=== PATIENT | female | born 1970 | race Caucasian/White ===

== ENCOUNTER → 2020-08-18 11:31 | Outpatient (CLI) | payer OTHER, SELFPAY ==
--- NOTE | ~2020-08-18 | US_ITS ---
EXAMINATION: US thyroid DATE: 08/18/2020 12:01 INDICATION: Nontoxic single thyroid nodule TECHNIQUE: Multiple ultrasound images of the thyroid were obtained. COMPARISON: 07/23/2019 FINDINGS: The right thyroid lobe measures 5.5 x 2.2 x 1.9 cm. The left thyroid lobe measures 5.1 x 2.0 x 1.9 c m. There is heterogeneous echogenicity with coarsened echotexture and pseudonodular pattern througho ut both thyroid lobes. A couple more well-defined 4 mm hypoechoic nodules in the inferior left thyroi d without echogenic foci which are significantly decreased in size since prior study IMPRESSION: 1. 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 2. Decrease in size of a couple now <5 mm nodules in the inferior left thyroid which are below criter ia for either biopsy or follow-up. Reviewed, dictated and finalized at location A. ET MACHINE OPERATOR IMPRESSION: 1. Enlarged heterogeneous thyroid with appearance suggestive of Deidra's thy roiditis. 2. Decrease in size of a couple now <5 mm nodules in the inferior left thyroid which are below criteria for either biopsy or follow-up.
== END ==
PROVIDERS: Visit Provider Nurse Practitioner Family
DX: E04.1 Nontoxic single thyroid nodule (principal)
CPT/HCPCS: 76536

== ENCOUNTER → 2020-08-18 11:32 | Outpatient (CLI) | payer OTHER, SELFPAY ==
--- NOTE | ~2020-08-18 | MM_ITS ---
EXAMINATION: MM screening [facility]rid BI w sheeba HISTORY: Screening mammogram TECHNIQUE: Craniocaudal and mediolateral oblique 3-D tomosynthesis images were obtained and synthetic 2-D images were generated. CAD analysis was submitted and interpreted. COMPARISON: 07/24/2018, 07/17/2017 bilateral digital screening mammogram examinations BREAST PARENCHYMAL COMPOSITION: The breasts are almost entirely fatty. FINDINGS: There is no evidence of suspicious mass, calcification, or architectural distortion to sugg est malignancy in either breast. There has been no suspicious interval change. IMPRESSION: 1. No mammographic evidence of malignancy. 2. Recommend routine screening mammography in one year. BI-RADS Category 1: Negative Reviewed, dictated and finalized at location A. 3RD MATE
== END ==
PROVIDERS: Visit Provider Nurse Practitioner
DX: Z12.31 Encounter for screening mammogram for malignant neoplasm of breast (principal)
CPT/HCPCS: 77063; 77067

== ENCOUNTER → 2020-12-07 07:54 | Outpatient (CLI) | payer OTHER, SELFPAY ==
--- NOTE | ~2020-12-07 | US_ITS ---
EXAMINATION: US right upper quadrant DATE: 12/07/2020 08:13 INDICATION: Right upper quadrant abdominal pain. TECHNIQUE: Multiple grayscale and Doppler ultrasound images of the abdomen were obtained. COMPARISON: None FINDINGS: Abdominal aorta is normal in caliber. The visualized portions of the head and body of the p ancreas are normal. There is diffuse hepatic steatosis. There is normal flow in main portal vein. The gallbladder is normal in size. No gallstones or gallbladder wall thickening. There is no sonographic Jones sign. The common duct is normal and measures 3 mm. Right kidney is normal in size. No right-s ided hydronephrosis. IMPRESSION: 1. Diffuse hepatic steatosis. Reviewed, dictated and finalized at location A.
== END ==
PROVIDERS: PCP Physician Assistant; Visit Provider Physician Assistant
DX: R10.11 Right upper quadrant pain (principal); K76.0 Fatty (change of) liver, not elsewhere classified
CPT/HCPCS: 76705

== ENCOUNTER → 2022-09-27 15:11 | Outpatient (CLI) | payer OTHER, SELFPAY ==
--- NOTE | ~2022-09-27 | MM_ITS ---
EXAMINATION: MM screening [facility] BI w sheeba HISTORY: Screening TECHNIQUE: Craniocaudal and mediolateral oblique 3-D tomosynthesis images were obtained and synthetic 2-D images were generated. CAD analysis was submitted and interpreted. COMPARISON: Comparison to multiple prior studies sequentially, with oldest reviewed study dated 06/06. BREAST PARENCHYMAL COMPOSITION: There are scattered areas of fibroglandular density. FINDINGS: There is no evidence of suspicious mass, calcification, or architectural distortion to sugg est malignancy in either breast. There has been no suspicious interval change. IMPRESSION: 1. No mammographic evidence of malignancy. 2. Recommend routine screening mammography in one year. BI-RADS Category 1: Negative Reviewed, dictated and finalized at location A.
== END ==
PROVIDERS: PCP Physician Assistant; Visit Provider Nurse Practitioner
DX: Z12.31 Encounter for screening mammogram for malignant neoplasm of breast (principal)
CPT/HCPCS: 77063; 77067

== ENCOUNTER → 2023-03-18 16:23 | Outpatient (CLI) | payer OTHER, SELFPAY ==
--- NOTE | ~2023-03-18 | US_ITS ---
Thyroid ultrasound. Clinical History: Goiter Findings: Real-time sonography of the thyroid gland was performed. The right lobe measures 4.8 x 1.9 x 1.8 cm. The left lobe measures 5.1 x 2.0 x 1.6 cm. The isthmus is 4 mm in AP diameter. Thyroid parenchyma is diffusely heterogeneous. Questionable 4 mm hypoechoic left lower pole thyroid n odule. There is a 5 mm hypoechoic right midpole thyroid nodule near the junction with the isthmus. Th ere is a 5 mm hypoechoic nodule in the isthmus just left of midline. Impression: Heterogeneous thyroid parenchyma with subcentimeter nodules, as detailed above. No further follow-up required for these nodules. Reviewed, dictated and finalized at location . Impression: Heterogeneous thyroid parenchyma with subcentimeter nodules, as detailed above. No further follow-up required for these nodules.
== END ==
PROVIDERS: PCP Physician Assistant; Visit Provider Internal Medicine Endocrinology, Diabetes & Metabolism
DX: E04.9 Nontoxic goiter, unspecified (principal)
CPT/HCPCS: 76536

== ENCOUNTER 2023-12-29 10:53 | Outpatient (CLI) | payer OTHER, SELFPAY ==
--- NOTE | ~2023-12-29 | MM_ITS ---
EXAMINATION: MM screening sigrid BI w sheeba HISTORY: Screening mammogram TECHNIQUE: Craniocaudal and mediolateral oblique 3-D tomosynthesis images were obtained and synthetic 2-D images were generated. CAD analysis was submitted and interpreted. COMPARISON: 09/27/2022, 06/17/2021 BREAST PARENCHYMAL COMPOSITION:Not Dense. The breasts are almost entirely fatty FINDINGS: No suspicious mass, calcification, or architectural distortion are identified in either mya ast to suggest malignancy. There has been no suspicious interval change. IMPRESSION: No mammographic evidence of malignancy. Recommend routine screening mammography in one year. BI-RADS Category 1: Negative Reviewed, dictated and finalized at location .
== END 2023-12-29 10:54 ==
LOC: MICIMG 10:53
PROVIDERS: PCP Nurse Practitioner; Visit Provider Nurse Practitioner
DX: Z12.31 Encounter for screening mammogram for malignant neoplasm of breast (principal)
CPT/HCPCS: 77063; 77067

== ENCOUNTER 2024-11-01 07:40 | Outpatient (CLI) | payer OTHER, SELFPAY ==
--- NOTE | ~2024-11-01 | XR_ITS ---
XR knee RT 3V Ordering provider: Kelsie Krause, PARafael History: . Pain in R knee . Comparison: None. FINDINGS: BONES: No acute fracture or dislocation. JOINT SPACES: Normal. SOFT TISSUES: Normal. IMPRESSION: No acute osseous abnormality right knee. - Reviewed, dictated and finalized at location A.
== END 2024-11-01 07:41 | disposition home or self-care (01) ==
PROVIDERS: PCP Physician Assistant; Visit Provider Physician Assistant
DX: M25.561 Pain in right knee (principal)
CPT/HCPCS: 73562

== ENCOUNTER 2024-11-22 08:25 | Outpatient (CLI) | payer OTHER, SELFPAY ==
--- NOTE | ~2024-11-22 | CT_ITS ---
EXAMINATION: CT wrist RT wo con DATE: 11/22/2024 08:44 INDICATION: Right wrist pain post fall 3 days prior TECHNIQUE: High resolution computed tomography (CT) of the right wrist was performed without intraven ous contrast. Additional sagittal and coronal reconstructions were performed. Matter dose Patel Th e dose-length product was 85.38 mGy-cm. COMPARISON: None FINDINGS: Bone alignment is normal. No fracture. Joint spaces appear normal throughout. Soft tissues are unrema rkable. IMPRESSION: 1. Unremarkable CT of the right wrist with no acute osseous abnormality. Reviewed, dictated and finalized at location A.
== END 2024-11-22 08:26 | disposition home or self-care (01) ==
LOC: MICIMG 08:26
PROVIDERS: PCP Physician Assistant
DX: M25.531 Pain in right wrist (principal)
CPT/HCPCS: 73200

== ENCOUNTER 2025-03-29 09:29 | Outpatient (CLI) | payer OTHER, SELFPAY ==
--- OUTSIDE RECORDS SUMMARY | 2024-05-22 16:00 | XMS_ITS ---
Author Organization [facility] Address [address] [address] Care Team Providers Care Barbecue Cook Name Role Phone Cindy Hughes Primary Care Provider Migration, Provider Unavailable Unavailable Allergies Allergen (clinical drug ingredient) Drug/Non Drug Allergy documented on EMR Reaction Allergy Type Onset Date Status penicillin G Penicillin G Potassium Unknown Drug Allergy Active erythromycin Erythromycin Unknown Drug Allergy A ctive REASON FOR VISIT [facility] To [facility] Conversion Encounter Medications Medication SIG (Take, Route, Frequency, Duration) Notes Start Date End Date Status methIMAzole 5 MG 1 tab(s) orally yoni y for 90 days 12/11/2023 Active metFORMIN HCl ER 500 MG 1 tab(s) orally once a day with dinner for 90 days 03/22/2024 Active Zepbound 2.5 MG/0.5ML inject 2.5 mg subcutaneously once a week for 30 days 03/22/2024 Active Zepbound 5 MG/0.5ML inject 5 mg subcutan eously once a week for 90 days 03/22/2024 Active dexAMETHasone 1 MG 1 tab(s) orally at 1 0 pm night before 8 am cortisol for 1 days 03/22/2024 Active Losartan Potassium 25 MG 1 tab(s) orally once a day for 90 days 12/11/2023 Active Losartan Potassium 50 MG 1 tab(s) orally once a day for 90 days 03/22/2024 Active Encounters Encounter Location Date [facility] [address] [address] 05/22/2024 Provider Migration Essential (primary) hypertension I10 [...] 1 tab(s) orally once a day with dinner for 90 days 03/22/2024 Zepbound 2.5 MG/0.5ML inject 2.5 mg subc utaneously once a week for 30 days 03/22/2024 Zepbound 5 MG/0.5ML inject 5 mg subcutan eously once a week for 90 days 03/22/2024 dexAMETHasone 1 MG 1 tab(s) orally at 1 0 pm night before 8 am cortisol for 1 days 03/22/2024 Losartan Potassium 50 MG 1 tab(s) orally once a day for 90 days 03/22/2024 Progress Notes * Arlene OWENSB: 969 (54 yo F)Acc No.[id number]:05/22/2024 Patient: Damari DAVEY Provider: Brooke Bhatti :1970 A ge:53 Y S ex:Female Date:05/22/2024 Phone: Address:[address] [place], [place] [phone] Pcp:Cindy Hughes Subjective: * Chief Complaints: * [facility] . [facility] * Medical History: * Medications: [...] Electronic signature of Prov ider Migration on 03/29/2025 at 10:13 AM CDT Sign off status: Pending * Provider: Brooke brown Migration Date: 07/22/2023 Generated for Moiz greer/Anselmo/Korin on: 0 03/29/2025 10:13 AM CDT
--- OUTSIDE RECORDS SUMMARY | 2024-05-22 16:00 | XMS_ITS ---
Author Organization [facility] Address [address] [place] [id number] Care Team Providers Care Draw Operator Name Role Phone Cindy Hughes Primary Care Provider Migration, Provider Unavailable Unavailable Allergies Allergen (clinical drug ingredient) Drug/Non Drug Allergy documented on EMR Reaction Allergy Type Onset Date Status erythromycin Erythromycin Unknown Drug Allergy A ctive penicillin G Penicillin G Potassium Unknown Drug Allergy [facility] Encounter Medications Medication SIG (Take, [...] Active Encounters Encounter Location Date Provider Diagnosis [address] [phone] 05/22/2024 Provider Migration Essential (primary) hypertension I10 [...] Duration: 90 days 03/22/2024 Progress Notes * rAlene OWENSB: 969 (54 yo F)Acc No.[id number]:05/22/2024 Patient: Elijah duque Damari Provider: Brooke Bhatti :1970 A ge:53 Y S ex:Female Date:05/22/2024 Phone: Address:[address] [place], [place] [phone] Pcp:Cindy Hughes Subjective: * Chief Complaints: * [facility] Conversion Encounter * Medications: T akingmethIMAzole 5 [...]
--- NOTE | ~2025-03-29 | US_ITS ---
ULTRASOUND ABDOMEN LIMITED (RIGHT UPPER QUADRANT) Clinical History: RUQ pain Comparison: None Technique: Right upper quadrant sonography Findings: Liver: Normal size. Normal echotexture. No intrahepatic biliary ductal dilatation. Normal hepatopedal flow main portal vein. Common Duct: Normal caliber. 2 mm. Gallbladder: No stones. No wall thickening. No pericholecystic fluid. Pancreas: Unremarkable. But largely obscured by bowel gas Retrohepatic IVC: Unremarkable. IMPRESSION: 1. No acute findings. Reviewed, dictated and finalized at location R. IMPRESSION: 1. No acute findings.
--- OUTSIDE RECORDS SUMMARY | 2025-03-29 10:13 | XMS_ITS | Clinical Summary ---
Author Organization [facility] Impliant Address [address] [place] [address] Care Team Providers Care Team Psychologist Name Role Phone Cindy Hughes MD Unavailable [phone] Elsie Wright OD Unavailable [phone] Source Comments [facility],non-owned Affiliates and Associated Physician Practices is amultiple site organization consisting of ambulatory clinics and hospital sitesin [place], [place], [place] and [place]. This disclosure is being madepursuant to the Care Everywhere program and may not contain all information available regarding this patient. Last updated 18.[facility] Allergies Active Allergy Reactions Criticality Noted Date Comments Clemizole Swelling 12/09/2012 Patient does not recall this allergy reaction but search may be related to penicillin? Erythromycin Urticaria Medium 06/26/2017 Penicillins Other,Rash,Swelling Medium 07/23/2004 Medications * Be aware that medications may not be up to date on this document. Alwaysverify current medications with the patient. omeprazole (PRILOSEC) 20 MG capsule omeprazole 20 mg capsule,delayed release Take 1 capsule every day by oral route as needed. 1 Active albuterol HFA (PROVENTIL;ALYSA TOLIN;PROAIR) 108 (90 Base) MCG/ACT inhaler INL 2 PFS PO Q 4 TO 6 H PRN 0 Active Cholecalcifero l (VITAMIN D3) 1.25 MG (68573 UT) capsule vitamin D3 2,000 unit-folic acid 1 mg tablet Take by oral route. 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 (AF LURIA, FLUZONE TRIVALENT; 6MO+) (IIV3) 04/06/2013,03/03/2009 TDAP (7yrs+) 01/25/2011 Social History Tobacco Use Types Packs/Day Years Used Date Smoking Tobacco: Never Smokeless Tobacco: Never Comments No Sex and Gender Information Value Date Recorded Sex Assigned at Not on file Legal Sex Female 11:42 AM [employer] LO[employer] Gender Identity Not on file Sexual Orientation Not on file Last Filed Vital Signs Vital Sign Reading Time Taken Comments Blood Pressure 140/70 10/16/2018 12:33 PM CDT Pulse 70 10/16/2018 12:33 PM CDT Temperature 36.7 C (98.1 F) 10/16/2018 12:33 PM CDT Respiratory Rate 16 10/16/2018 12:33 PM CDT Oxygen Saturation 98% 10/16/2018 12:33 PM CDT Inhaled Oxygen Concentration - - Weight 68 kg (150 lb) 10/16/2018 12:33 PM CDT Height 154.9 cm (5' 1) 10/16/2018 12:33 PM CDT Body Mass Index 28.34 10/16/2018 12:33 PM CDT Plan of Treatment Upcoming Encounters Date Type Department Care Team (Late st Contact Info) Description 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 Office Visit [facility] - Ophthalmology [address] [place] [phone] Nadine Newton MD [address] [place] [address] Health Maintenance Due Date Last Done Comments COLOGUARD (AGES 45-75) - COL ON CA SCREENING 1968 COLON MONITORING 1968 COLONOSCOPY - COLON CA SCREENING [address] CT COLONOGRAPHY - COLON CA SCREENING 1968 Colorectal Cancer Screening 1968 FIT - COLON CA SCREENING 1968 FLEX SIG - COLON CA SCREENING 1968 LIPID TESTING 1968 MAMMOGRAM 1968 HIV SCREENING 11/09/1983 HEPATITIS C SCREENING 11/04/1986 HEPATITIS B VACCINE (1 of 3 - 19+ 3-dose series) 11/09/1987 PNEUMOCOCCAL VACCINE 50+ (1 of 2 - PCV) 11/09/1987 ZOSTER VACCINE (1 of 2) 2018 PAP SMEAR 07/02/2020 07/02/2017, 12/19/2005 DTAP/TDAP/TD VACCINES (2 - T d or Tdap) 01/25/2021 01/25/2011 DEPRESSION SCREENING 07/07/2024 COVID-19 VACCINE (2023-2 5 season) 2025 INFLUENZA VACCINE (#1) 2025 3, 03/03/2009 HIB VACCINE Aged Out No longer eligi ble based on patient's age to complete this topic HPV VACCINE Aged Out No longer eligi ble based on patient's age to complete this topic MENINGOCOCCAL (Group B) VACCINE SHARED DECISION-MAKING Aged Out No longer eligible based on patient's age to complete this topic MENINGOCOCCAL GROUPS A/C/Y/W VACCINE Aged Out No longer eligible b ased on patient's age to complete this topic Insurance Team Apart Care Teams Team Psychologist Relationship Specialty Start Date End Date Cindy Hughes MD [address] [place] [id number] Endocrinology 11/03/19 Elsie Wright OD [address] [place] [address] Financial Aid Coordinator 11/03/19
--- OUTSIDE RECORDS SUMMARY | 2025-03-29 10:13 | XMS_ITS | Patient Health Record ---
Author Organization [facility] Address [address] [facility] KEILA Quintanilla [id number] Care Team Providers Care Fiction Writer Name Role Phone Cindy Hughes Primary Care Provider Migration, Provider Unavailable Unavailable Allergies Allergen (clinical drug ingredient) Drug/Non Drug Allergy documented on EMR Reaction Allergy Type Onset Date Status erythromycin Erythromycin Unknown Drug Allergy A ctive penicillin G Penicillin G Potassium Unknown Drug Allergy Active Results Component Value Reference Range Flag Notes .COMPREHENSIVE METABOLIC SHINE (57484) [facility] Reviewed date:10/17/2024 12:28:43 PM Interpretation: Performing Lab:ALICE, [place] [address], [address] [facility] Notes/Report: FASTING:YES FASTING: YES GLUCOSE 94 65-99 mg/dL N Fasting reference interval UREA NITROGEN (BUN) 15 7-25 mg/dL N CREATININE 0.60 0.50-1.03 mg/dL N EGFR 106 > OR = 60 mL/min/1.73m2 N BUN/CREATININE RATIO SEE NOTE: 6-22 (calc) Not Reported: BUN and Creatinine are within reference range. SODIUM 141 135-146 mmol/L N POTASSIUM 4.4 3.5-5.3 mmol/L N CHLORIDE 106 98-110 mmol/L N CARBON DIOXIDE 28 20-32 mmol/L N CALCIUM 9.4 8.6-10.4 mg/dL N PROTEIN, TOTAL 6.8 6.1-8.1 g/dL N ALBUMIN 4.4 3.6-5.1 g/dL N GLOBULIN 2.4 1.9-3.7 g/dL (calc) N ALBUMIN/GLOBULIN RATIO 1.8 1.0-2.5 (calc) N BILIRUBIN, TOTAL 0.4 0.2-1.2 mg/dL N ALKALINE PHOSPHATASE 70 37-153 U/L N AST 15 10-35 U/L N ALT 20 6-29 U/L N .COMPREHENSIVE METABOLIC SHINE EL (87669) [facility] Reviewed date:02/24/2025 08:36:46 PM Interpretation: Performing Lab:Jackson IGLESIAS-Txesks76968 Kevin Rivera, KtwbddHZ[address] Silvino Bermudez MD Notes/Report: FASTING:YES FASTING: YES GLUCOSE 85 65-99 mg/dL N Fasting reference interval UREA NITROGEN (BUN) 18 7-25 mg/dL N CREATININE 0.67 0.50-1.03 mg/dL N EGFR 103 > OR = 60 mL/min/1.73m2 N BUN/CREATININE RATIO SEE NOTE: 6-22 (calc) Not Reported: BUN and Creatinine are within reference range. SODIUM 142 135-146 mmol/L N POTASSIUM 4.7 3.5-5.3 mmol/L N CHLORIDE 105 98-110 mmol/L N CARBON DIOXIDE 28 20-32 mmol/L N CALCIUM 9.2 8.6-10.4 mg/dL N PROTEIN, TOTAL 6.9 6.1-8.1 g/dL N ALBUMIN 4.5 3.6-5.1 g/dL N GLOBULIN 2.4 1.9-3.7 g/dL (calc) N ALBUMIN/GLOBULIN RATIO 1.9 1.0-2.5 (calc) N BILIRUBIN, TOTAL 0.5 0.2-1.2 mg/dL N ALKALINE PHOSPHATASE 73 37-153 U/L N AST 26 10-35 U/L N ALT 28 6-29 U/L N IRON AND TOTAL IRON BINDING CAPACITY (7573) Reviewed date:10/17/2024 12:28:43 PM Interpretation: Performing Lab:Jackson IGLESIAS-Olsyam85958 Kevin Rivera, QjtdodBP[address] Silvino Bermudez MD Notes/Report: FASTING:YES FASTING: YES IRON, TOTAL 53 45-160 mcg/dL N IRON BINDING CAPACITY 321 250-450 mc g/dL (calc) N % SATURATION 17 16-45 % (calc) N .LIPID PANEL, STANDARD (9980 ) Reviewed date:10/17/2024 12:28:43 PM Interpretation: Performing Lab:Jackson [facility]–Bar[facility] [address] Silvino Bermudez Notes/Report: FASTING:YES FASTING: YES CHOLESTEROL, TOTAL 174 <200 mg/dL N HDL CHOLESTEROL 54 > OR = 50 mg/dL N TRIGLYCERIDES 196 <150 mg/dL H LDL-CHOLESTEROL 91 N Reference range: <100 Desirable range <100 mg/dL for primary prevention; <70 mg/dL for patients with CHD or diabetic patients with > or = 2 CHD risk factors. LDL-C is now calculated using the Johnnie-Baum calculation, which is a validated novel method providing better accuracy than the Friedewald equation in the estimation of LDL-C. Johnnie DESAI et al. MARICARMEN. 2013;310(19): 2893-6800 (http://education.Celleration/faq/DPA359) CHOL/HDLC RATIO 3.2 <5.0 (calc) N NON HDL CHOLESTEROL 120 <130 mg/dL (calc) N For patients with diabetes plus 1 major ASCVD risk factor, treating to a non-HDL-C goal of <100 mg/dL (LDL-C of <70 mg/dL) is considered a therapeutic option. .LIPID PANEL, STANDARD (7600 ) Reviewed date:02/24/2025 08:36:46 PM Interpretation: Performing Lab:KS, [facility]-Khhwij508[address] Kevin [facility], ZhfurnBY[address] Silvino Bermudez MD Notes/Report: FASTING:YES FASTING: YES CHOLESTEROL, TOTAL 173 <200 mg/dL N HDL CHOLESTEROL 52 > OR = 50 mg/dL N TRIGLYCERIDES 168 <150 mg/dL H LDL-CHOLESTEROL 94 N Reference range: <100 Desirable range <100 mg/dL for primary prevention; <70 mg/dL for patients with CHD or diabetic patients with > or = 2 CHD risk factors. LDL-C is now calculated using the Johnnie-Baum calculation, which is a validated novel method providing better accuracy than the Friedewald equation in the estimation of LDL-C. Johnnie DESAI et al. MARICARMEN. 2013;310(19): 7163-3246 (http://education.CyrusOne.[employer]/faq/FWX555) CHOL/HDLC RATIO 3.3 <5.0 (calc) N NON HDL CHOLESTEROL 121 <130 mg/dL (calc) N For patients with diabetes plus 1 major ASCVD risk factor, treating to a non-HDL-C goal of <100 mg/dL (LDL-C of <70 mg/dL) is considered a therapeutic option. .CBC (INCLUDES DIFF/PLT) (63 99) Reviewed date:02/24/2025 08:36:46 PM Interpretation: Performing Lab:Jackson IGLESIAS-Galyef97644 Kevin Rivera, UrdalvRD[address] Silvino Bermudez MD Notes/Report: FASTING:YES FASTING: YES WHITE BLOOD CELL COUNT 6.5 3.8-10.8 Thousand/uL N RED BLOOD CELL COUNT 4.93 3.80-5.10 Million/uL N HEMOGLOBIN 14.0 11.7-15.5 g/dL N HEMATOCRIT 44.4 35.0-45.0 % N MCV 90.1 80.0-100.0 fL N MCH 28.4 27.0-33.0 pg N MCHC 31.5 32.0-36.0 g/dL L For adults, a slight decrease in the calculated MCHC value (in the range of 30 to 32 g/dL) is most likely not clinically significant; however, it should be interpreted with caution in correlation with other red cell parameters and the patient's clinical condition. RDW 13.3 11.0-15.0 % N PLATELET COUNT 231 140-400 Thousand/uL N MPV 10.6 7.5-12.5 fL N ABSOLUTE NEUTROPHILS [phone] cells/uL N ABSOLUTE LYMPHOCYTES 5910 337-8274 cells/uL N ABSOLUTE MONOCYTES 338 200-950 cells/uL N ABSOLUTE EOSINOPHILS 78 15-500 cells/uL N ABSOLUTE BASOPHILS 52 0-200 cells/uL N NEUTROPHILS 65.2 N LYMPHOCYTES 27.6 N MONOCYTES 5.2 N EOSINOPHILS 1.2 N BASOPHILS 0.8 N .CBC (INCLUDES DIFF/PLT) (63 99) Reviewed date:10/17/2024 12:28:43 PM Interpretation: Performing Lab:ALICE [facility]-St JaimeLwwje[address] Keyshawn Poe KhuulxsJK[address] Silvino Bermudez Notes/Report: FASTING:YES FASTING: YES WHITE BLOOD CELL COUNT 6.8 3.8-10.8 Thousand/uL N RED BLOOD CELL COUNT 4.87 3.80-5.10 Million/uL N HEMOGLOBIN 13.8 11.7-15.5 g/dL N HEMATOCRIT 42.5 35.0-45.0 % N MCV 87.3 80.0-100.0 fL N MCH 28.3 27.0-33.0 pg N MCHC 32.5 32.0-36.0 g/dL N For adults, a slight decrease in the calculated MCHC value (in the range of 30 to 32 g/dL) is most likely not clinically significant; however, it should be interpreted with caution in correlation with other red cell parameters and the patient's clinical condition. RDW 13.6 11.0-15.0 % N PLATELET COUNT 222 140-400 Thousand/uL N MPV 11.8 7.5-12.5 fL N ABSOLUTE NEUTROPHILS 4536 2164-2006 cells/uL N ABSOLUTE LYMPHOCYTES 9854 380-3593 cells/uL N ABSOLUTE MONOCYTES 333 200-950 cells/uL N ABSOLUTE EOSINOPHILS 68 15-500 cells/uL N ABSOLUTE BASOPHILS 27 0-200 cells/uL N NEUTROPHILS 66.7 N LYMPHOCYTES 27.0 N MONOCYTES 4.9 N EOSINOPHILS 1.0 N BASOPHILS 0.4 N .HEMOGLOBIN A1c (496) Reviewed date:10/17/2024 12:28:43 PM Interpretation: Performing Lab:ALICE [facility]onSaint [facility]Bar[facility] RoadGjpvs[address] Administration Keyshawn Poe LsgdkjuUN[address] Silvino Bermudez Notes/Report: FASTING:YES FASTING: YES HEMOGLOBIN A1c 5.5 <5.7 % of total Hgb N For the purpose of screening for the presence of diabetes: <5.7% Consistent with the absence of diabetes 5.7-6.4% Consistent with increased risk for diabetes (prediabetes) > or =6.5% Consistent with diabetes This assay result is consistent with a decreased risk of diabetes. Currently, no consensus exists regarding use of hemoglobin A1c for diagnosis of diabetes in children. According to [place] Diabetes Association (ADA) guidelines, hemoglobin A1c <7.0% represents optimal control in non- diabetic patients. Different metrics may apply to specific patient populations. Standards of Medical Care in Diabetes(ADA). INSULIN (561) Reviewed date:10/17/2024 12:28:43 PM Interpretation: Performing Lab:HARRIS [facility]-Vmflql13116 Kevin Rivera, VjcdfaNE[address] Silvino Bermudez MD Notes/Report: FASTING:YES FASTING: YES INSULIN 14.8 N Reference Range < or = 18.4 Risk: Optimal < or = 18.4 Moderate NA High >18.4 Adult cardiovascular event risk category cut points (optimal, moderate, high) are based on Insulin Reference Interval studies performed at [facility] in 2021. VITAMIN B12/FOLATE, SERUM PA MARITZA (7065) Reviewed date:10/17/2024 12:28:43 PM Interpretation: Performing Lab:Jackson IGLESIAS-Varghese Marc[address] Silvino Bermudez MD Notes/Report: FASTING:YES FASTING: YES VITAMIN B12 749 308-4302 pg/mL N FOLATE, SERUM 6.6 N Reference Range Low: <3.4 Borderline: 3.4-5.4 Normal: >5.4 T4, FREE (866) Reviewed date:10/17/2024 12:28:43 PM Interpretation: Performing Lab:ALICE [place] [address] [address]wn [address]oe [address]uyChippewa City Montevideo Hospitaldominic Bermudez Notes/Report: FASTING:YES FASTING: YES T4, FREE 1.3 0.8-1.8 ng/dL N T4, FREE (866) Reviewed date:02/24/2025 08:36:46 PM Interpretation: Performing Lab:Jackson IGLESIAS LenexaKS[address] Silvino Bermudez MD Notes/Report: FASTING:YES FASTING: YES T4, FREE 1.3 0.8-1.8 ng/dL N TSH (899) Reviewed date:02/24/2025 08:36:46 PM Interpretation: Performing Lab:HARRIS Cover Varghese Raines[address] Silvino Bermudez MD Notes/Report: FASTING:YES FASTING: YES TSH 0.94 0.40-4.50 mIU/L N TSH (899) Reviewed date:10/17/2024 12:28:43 PM Interpretation: Performing Lab:ALICE [facility]onRhonda [place] [id number] Administration Keyshawn Poe [address]uy[facility] Radha Bermudez Notes/Report: FASTING:YES FASTING: YES TSH 0.51 N Reference Range > or = 20 Years 0.40-4.50 Ranges First trimester 0.26-2.66 Second trimester 0.55-2.73 Third trimester 0.43-2.91 T3, FREE (01192) Reviewed date:10/17/2024 12:28:43 PM Interpretation: Performing Lab:Jackson IGLESIAS-Bnvmgp88401 Kevin Rivera, FdnyieAZ[address] Silvino Bermudez MD Notes/Report: FASTING:YES FASTING: YES T3, FREE 3.2 2.3-4.2 pg/mL N T3, FREE (69015) Reviewed date:02/24/2025 08:36:46 PM Interpretation: Performing Lab:Jackson IGLESIAS-Uklwfw24556Azul Rivera, OtpontGL[address] Silvino Bermudez MD Notes/Report: FASTING:YES FASTING: YES T3, FREE 3.4 2.3-4.2 pg/mL N .VITAMIN D,25-OH,TOTAL,IA (1 3115) Reviewed date:10/17/2024 12:28:43 PM Interpretation: Performing Lab:Jackson IGLESIAS-Pdkgyz01434 Kevin Rivera, YulifcQP[address] Silvino Bermudez MD Notes/Report: FASTING:YES FASTING: YES VITAMIN D,25-OH,TOTAL,IA 33 30-100 ng/mL N Vitamin D Status 25-OH Vitamin D: Deficiency: <20 ng/mL Insufficiency: 20 - 29 ng/mL Optimal: > or = 30 ng/mL For 25-OH Vitamin D testing on patients on D2-supplementation and patients for whom quantitation of D2 and D3 fractions is required, the QuestAssureD() 25-OH VIT D, (D2,D3), LC/MS/MS is recommended: order code 67013 (patients >2yrs). See Note 1 Note 1 For additional information, please refer to http://education.Entellium/faq/TDV130 (This link is being provided for informational/ educational purposes only.) COMPREHENSIVE METABOLIC PANE L Reviewed date:07/15/2024 05:22:04 PM Interpretation: Performing Lab:Jackson IGLESIAS-Chris, [address] Kevin Rivera, [place], [address] Silvino Bermudez MD Notes/Report: FASTING:YES FASTING: YES Fasting reference interval Not Reported: BUN and Creatinine are within reference range. GLUCOSE 96 65-99 mg/dL N UREA NITROGEN (BUN) 18 7-25 mg/dL N CREATININE 0.59 0.50-1.03 mg/dL N EGFR 106 > OR = 60 mL/min/1.73m2 N BUN/CREATININE RATIO SEE NOTE: 6- (calc) SODIUM 142 135-146 mmol/L N POTASSIUM 4.3 3.5-5.3 mmol/L N CHLORIDE 105 98-110 mmol/L N CARBON DIOXIDE 27 20-32 mmol/L N CALCIUM 9.4 8.6-10.4 mg/dL N PROTEIN, TOTAL 7.1 6.1-8.1 g/dL N ALBUMIN 4.5 3.6-5.1 g/dL N GLOBULIN 2.6 1.9-3.7 g/dL (calc) N ALBUMIN/GLOBULIN RATIO 1.7 1.0-2.5 (calc) N BILIRUBIN, TOTAL 0.6 0.2-1.2 mg/dL N ALKALINE PHOSPHATASE 74 37-153 U/L N AST 17 10-35 U/L N ALT 21 6-29 U/L N COMPREHENSIVE METABOLIC PANE L Reviewed date:05/13/2024 08:49:12 PM Interpretation: Performing Lab:HARRIS, [facility]-Chris, [address] Kevin Rivera, Chris, [place], [address] Silvino Bermudez MD Notes/Report: FASTING:YES FASTING: YES Fasting reference interval Not Reported: BUN and Creatinine are within reference range. GLUCOSE 98 65-99 mg/dL N UREA NITROGEN (BUN) 21 7-25 mg/dL N CREATININE 0.73 0.50-1.03 mg/dL N EGFR 97 > OR = 60 mL/min/1.73m2 N BUN/CREATININE RATIO SEE NOTE: 6- (calc) SODIUM 141 135-146 mmol/L N POTASSIUM 4.5 3.5-5.3 mmol/L N CHLORIDE 105 98-110 mmol/L N CARBON DIOXIDE 25 20-32 mmol/L N CALCIUM 9.6 8.6-10.4 mg/dL N PROTEIN, TOTAL 7.2 6.1-8.1 g/dL N ALBUMIN 4.5 3.6-5.1 g/dL N GLOBULIN 2.7 1.9-3.7 g/dL (calc) N ALBUMIN/GLOBULIN RATIO 1.7 1.0-2.5 (calc) N BILIRUBIN, TOTAL 0.5 0.2-1.2 mg/dL N ALKALINE PHOSPHATASE 86 37-153 U/L N AST 17 10-35 U/L N ALT 21 6-29 U/L N ACTH, PLASMA Reviewed date:05/16/2024 09:11:47 AM Interpretation: Performing Lab:Jackson MORTON/[facility], [address] [facility] , [place], [address] Eric Casillas M.D.,PhD Notes/Report: FASTING:YES FASTING: YES Reference range applies only to specimens collected between 7am-10am. ACTH, PLASMA 26 6-50 pg/mL T3, FREE Reviewed date:05/13/2024 08:48:35 PM Interpretation: Performing Lab:Jackson IGLESIAS, [address] [place], [address] Silvino Bermudez MD Notes/Report: FASTING:YES FASTING: YES T3, FREE 3.1 2.3-4.2 pg/mL N T3, FREE Reviewed date:07/15/2024 05:22:04 PM Interpretation: Performing Lab:Jackson IGLESIAS, [address] [place], [address] Silvino Bermudez MD Notes/Report: FASTING:YES FASTING: YES T3, FREE 3.1 2.3-4.2 pg/mL N CORTISOL, TOTAL Reviewed date:05/13/2024 09:53:37 PM Interpretation: Performing Lab:Jackson IGLESIAS, [address] Kevin Rivera, [place], [address] Silvino Bermudez MD Notes/Report: FASTING:YES FASTING: YES Reference Range: For 8 a.m.(7-9 a.m.) Specimen: 4.0-22.0 Reference Range: For 4 p.m.(3-5 p.m.) Specimen: 3.0-17.0 * Please interpret above results accordingly * CORTISOL, TOTAL 17.0 N DHEA SULFATE Reviewed date:05/13/2024 09:53:55 PM Interpretation: Performing Lab:HARRIS Cover [place], [address] [place], [address] Silvino Bermudez MD Notes/Report: FASTING:YES FASTING: YES DHEA SULFATE 41 5-167 mcg/dL N HEMOGLOBIN A1c Reviewed date:05/13/2024 08:48:28 PM Interpretation: Performing Lab:Jackson JENKINS [facility]Saint [facility], [address] [place], [address] Silvino Bermudez Notes/Report: FASTING:YES FASTING: YES For someone without known diabetes, a hemoglobin A1c value between 5.7% and 6.4% is consistent with prediabetes and should be confirmed with a follow-up test. For someone with known diabetes, a value <7% indicates that their diabetes is well controlled. A1c targets should be individualized based on duration of diabetes, age, comorbid conditions, and other considerations. This assay result is consistent with an increased risk of diabetes. Currently, no consensus exists regarding use of hemoglobin A1c for diagnosis of diabetes for children. HEMOGLOBIN A1c 5.7 <5.7 % of total Hgb H HEMOGLOBIN A1c Reviewed date:07/15/2024 05:22:04 PM Interpretation: Performing Lab:ALICE [facility], [address] [place], [address] Silvino Bermudez Notes/Report: FASTING:YES FASTING: YES For the purpose of screening for the presence of diabetes: <5.7% Consistent with the absence of diabetes 5.7-6.4% Consistent with increased risk for diabetes (prediabetes) > or =6.5% Consistent with diabetes This assay result is consistent with a decreased risk of diabetes. Currently, no consensus exists regarding use of hemoglobin A1c for diagnosis of diabetes in children. According to [place] Diabetes Association (ADA) guidelines, hemoglobin A1c <7.0% represents optimal control in non- diabetic patients. Different metrics may apply to specific patient populations. Standards of Medical Care in Diabetes(ADA). HEMOGLOBIN A1c 5.5 <5.7 % of total Hgb N INSULIN Reviewed date:07/15/2024 05:22:04 PM Interpretation: Performing Lab:Jackson IGLESIAS-Chris, [address] [place], [address] Silvino Bermudez MD Notes/Report: FASTING:YES FASTING: YES Reference Range < or = 18.4 Risk: Optimal < or = 18.4 Moderate NA High >18.4 Adult cardiovascular event risk category cut points (optimal, moderate, high) are based on Insulin Reference Interval studies performed at [facility] in 2021. INSULIN 25.0 H CBC (INCLUDES DIFF/PLT) Reviewed date:07/15/2024 05:22:04 PM Interpretation: Performing Lab:HARRIS [facility]Chris, [address] [place], [address] Silvino Bermudez MD Notes/Report: FASTING:YES FASTING: YES For adults, a slight decrease in the calculated MCHC value (in the range of 30 to 32 g/dL) is most likely not clinically significant; however, it should be interpreted with caution in correlation with other red cell parameters and the patient's clinical condition. WHITE BLOOD CELL COUNT 6.6 3.8-10.8 Thousand/uL N RED BLOOD CELL COUNT 5.19 3.80-5.10 Million/uL H HEMOGLOBIN 14.8 11.7-15.5 g/dL N HEMATOCRIT 44.9 35.0-45.0 % N MCV 86.5 80.0-100.0 fL N MCH 28.5 27.0-33.0 pg N MCHC 33.0 32.0-36.0 g/dL N RDW 13.4 11.0-15.0 % N PLATELET COUNT 241 140-400 Thousand/uL N MPV 11.1 7.5-12.5 fL N ABSOLUTE NEUTROPHILS 4521 7086-3947 cells/uL N ABSOLUTE LYMPHOCYTES 9103 590-8456 cells/uL N ABSOLUTE MONOCYTES 323 200-950 cells/uL N ABSOLUTE EOSINOPHILS 73 15-500 cells/uL N ABSOLUTE BASOPHILS 40 0-200 cells/uL N NEUTROPHILS 68.5 N LYMPHOCYTES 24.9 N MONOCYTES 4.9 N EOSINOPHILS 1.1 N BASOPHILS 0.6 N CBC (INCLUDES DIFF/PLT) Reviewed date:05/13/2024 08:49:31 PM Interpretation: Performing Lab:HARRIS [facility]-Chris, [address] [place], [address] Silvino Bermudez MD Notes/Report: FASTING:YES FASTING: YES For adults, a slight decrease in the calculated MCHC value (in the range of 30 to 32 g/dL) is most likely not clinically significant; however, it should be interpreted with caution in correlation with other red cell parameters and the patient's clinical condition. WHITE BLOOD CELL COUNT 8.6 3.8-10.8 Thousand/uL N RED BLOOD CELL COUNT 5.35 3.80-5.10 Million/uL H HEMOGLOBIN 15.0 11.7-15.5 g/dL N HEMATOCRIT 46.3 35.0-45.0 % H MCV 86.5 80.0-100.0 fL N MCH 28.0 27.0-33.0 pg N MCHC 32.4 32.0-36.0 g/dL N RDW 13.8 11.0-15.0 % N PLATELET COUNT 290 140-400 Thousand/uL N MPV 11.1 7.5-12.5 fL N ABSOLUTE NEUTROPHILS 5564 2632-7428 cells/uL N ABSOLUTE LYMPHOCYTES 2494 850-3900 cells/uL N ABSOLUTE MONOCYTES 413 200-950 cells/uL N ABSOLUTE EOSINOPHILS 103 15-500 cells/uL N ABSOLUTE BASOPHILS 26 0-200 cells/uL N NEUTROPHILS 64.7 N LYMPHOCYTES 29.0 N MONOCYTES 4.8 N EOSINOPHILS 1.2 N BASOPHILS 0.3 N VITAMIN B12/FOLATE, SERUM PA MARITZA Reviewed date:05/13/2024 08:48:43 PM Interpretation: Performing Lab:[facility], [address] [place], [address] Silvino Bermudez MD Notes/Report: FASTING:YES FASTING: YES Reference Range Low: <3.4 Borderline: 3.4-5.4 Normal: >5.4 VITAMIN B12 223 785-1200 pg/mL N FOLATE, SERUM 7.2 N VITAMIN B12/FOLATE, SERUM PA MARITZA Reviewed date:07/15/2024 05:22:04 PM Interpretation: Performing Lab:[facility], [address] [place], [address] Silvino Bermudez MD Notes/Report: FASTING:YES FASTING: YES Reference Range Low: <3.4 Borderline: 3.4-5.4 Normal: >5.4 VITAMIN B12 544 036-8911 pg/mL N FOLATE, SERUM 6.8 N LIPID PANEL Reviewed date:07/15/2024 05:22:04 PM Interpretation: Performing Lab:HARRIS [facility]onAaliyahClarks [facility], [address] [place], [address] Silvino Bermudez MD Notes/Report: FASTING:YES FASTING: YES If a non-fasting specimen was collected, consider repeat triglyceride testing on a fasting specimen if clinically indicated. Florence et al. J. of Clin. Lipidol. 2015;9:129-169. Reference range: <100 Desirable range <100 mg/dL for primary prevention; <70 mg/dL for patients with CHD or diabetic patients with > or = 2 CHD risk factors. LDL-C is now calculated using the Johnnie-Baum calculation, which is a validated novel method providing better accuracy than the Friedewald equation in the estimation of LDL-C. Johnnie SS et al. MARICARMEN. 2013;310(19): 7959-7885 (http://education.O[employer]/faq/NRE125) For patients with diabetes plus 1 major ASCVD risk factor, treating to a non-HDL-C goal of <100 mg/dL (LDL-C of <70 mg/dL) is considered a therapeutic option. CHOLESTEROL, TOTAL 197 <200 mg/dL N HDL CHOLESTEROL 54 > OR = 50 mg/dL N TRIGLYCERIDES 230 <150 mg/dL H LDL-CHOLESTEROL 108 H CHOL/HDLC RATIO 3.6 <5.0 (calc) N NON HDL CHOLESTEROL 143 <130 mg/dL (calc) H LIPID PANEL Reviewed date:05/13/2024 08:48:58 PM Interpretation: Performing Lab:HARRIS Cover [place], [address] [place], [address] Silvino Bermudez MD Notes/Report: FASTING:YES FASTING: YES If a non-fasting specimen was collected, consider repeat triglyceride testing on a fasting specimen if clinically indicated. Florence et al. J. of Clin. Lipidol. 2015;9:129-169. Reference range: <100 Desirable range <100 mg/dL for primary prevention; <70 mg/dL for patients with CHD or diabetic patients with > or = 2 CHD risk factors. LDL-C is now calculated using the Johnnie-Baum calculation, which is a validated novel method providing better accuracy than the Friedewald equation in the estimation of LDL-C. Johnnie SS et al. MARICARMEN. 2013;310(95): 1612-2673 (http://education.Oxyrane [employer]/faq/VFU782) For patients with diabetes plus 1 major ASCVD risk factor, treating to a non-HDL-C goal of <100 mg/dL (LDL-C of <70 mg/dL) is considered a therapeutic option. CHOLESTEROL, TOTAL 195 <200 mg/dL N HDL CHOLESTEROL 60 > OR = 50 mg/dL N TRIGLYCERIDES 228 <150 mg/dL H LDL-CHOLESTEROL 100 H CHOL/HDLC RATIO 3.3 <5.0 (calc) N NON HDL CHOLESTEROL 135 <130 mg/dL (calc) H T4, FREE Reviewed date:05/13/2024 08:51:29 PM Interpretation: Performing Lab:Jackson IGLESIAS, [address] [place], [address] Silvino Bermudez MD Notes/Report: FASTING:YES FASTING: YES T4, FREE 1.2 0.8-1.8 ng/dL N T4, FREE Reviewed date:07/15/2024 05:22:04 PM Interpretation: Performing Lab:Jackson IGLESIAS, [place], [address] Silvino Bermudez MD Notes/Report: FASTING:YES FASTING: YES T4, FREE 1.2 0.8-1.8 ng/dL N TSH Reviewed date:07/15/2024 05:22:04 PM Interpretation: Performing Lab:[facility], [address] [place], [address] Silvino Bermudez MD Notes/Report: FASTING:YES FASTING: YES Reference Range > or = 20 Years 0.40-4.50 Ranges First trimester 0.26-2.66 Second trimester 0.55-2.73 Third trimester 0.43-2.91 TSH 0.71 N TSH Reviewed date:05/13/2024 08:48:50 PM Interpretation: Performing Lab:[facility], [address] [place], [address] GraceHelena Bermudez MD Notes/Report: FASTING:YES FASTING: YES Reference Range > or = 20 Years 0.40-4.50 Ranges First trimester 0.26-2.66 Second trimester 0.55-2.73 Third trimester 0.43-2.91 TSH 0.51 N MAGNESIUM, RBC Reviewed date:05/20/2024 08:17:12 PM Interpretation: Performing Lab:[id number] [facility] [address], [address], [place], [address] John Williamson MD,PhD Notes/Report: FASTING:YES FASTING: YES (Note) This test was developed and its analytical performance characteristics have been determined by [facility]. It has not been cleared or approved by the FDA. This assay has been validated pursuant to the CLIA regulations and is used for clinical purposes. [facility] [place] [address],[address] [facility] [id number] John Williamson MD, PhD MAGNESIUM, RBC 8.0 4.0-6.4 mg/dL H Reason For Referral No Information Medications Medication SIG (Take, Route, Frequency, Duration) Notes Start Date End Date Status Zepbound 7.5 MG/0.5ML Solution Auto-injector 0.5 mL Subcutaneous weekly; Duration: 90 days 10/27/2024 Active Losartan Potassium 50 MG Tablet 1 tab(s) orally once a day; Duration: 90 days 03/22/2024 Not-Takin g Problems Problem Type SNOMED Code ICD Code Onset Dates Problem Status W/U Status Risk Notes Problem Toxic diffuse goiter with no crisis (310479992) 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 Problem Autoimmune thyroiditis (26369598) Autoimmune thyroiditis (E06.3) Active confirmed Problem Overweight (427257547) Overweight (E66.3) Active confirmed Problem Obesity (298828233) Obesity, unspecified (E66.9) Active confirmed Problem Pure hyperglyceridemia (663042111) Pure hyperglyceridemia (E78.1) Active confirmed Problem Essential hypertension (67594849) Essential (primary) hypertension (I10) Active confirmed Problem Goiter (5039505) Goiter (E04.9) Active confirme d Vital Signs Heart Rate 70 /min 03/15/2025 Respiratory Rate 12 /min 10/27/2024 Oximetry 98 % 03/15/2025 Height-cm 157.48 cm 03/15/2025 Blood pressure diastolic 75 mm Hg 03/15/2025 Weight-kg 63.96 kg 03/15/2025 Height 62 in 03/15/2025 Blood pressure systolic 148 mm Hg 03/15/2025 Weight 141 lbs 03/15/2025 BMI 25.79 kg/m2 03/15/2025 Encounters Encounter Location Date Provider Diagnosis [id number] [place], [place] [id number] 05/22/2024 Provider Migration Essential (primary) hypertension I10 ; Prediabetes R73.03 and Obesity, unspecified E66.[address] 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 Hughes [address] [place] [phone] 07/19/2024 Cindy Hughes Obesity, unspecified E66.9 ; Essential (primary) hypertension I10 ; Dietary counseling and surveillance Z71.3 ; Pure hyperglyceridemia E78.1 and Autoimmune thyroiditis E06.[address] Hughes [address] [place] [phone] 10/27/2024 Cindy Hughes Autoimmune thyroidit is E06.3 ; Pure hyperglyceridemia E78.1 ; Essential (primary) hypertension I10 ; Overweight E66.3 and Obesity, unspecified E66.[address] Hughes [id number] [place] [phone] 03/15/2025 Cindy Hughes Autoimmune thyroidit is E06.3 ; Overweight E66.3 ; Pure hyperglyceridemia E78.1 ; Essential (primary) hypertension I10 ; Goiter E04.9 and Dietary counseling and surveillance Z71.[address] Hughes [id number] [place] [phone] 11/17/2024 Cindy [place] [facility] [phone] 11/22/2024 Cindy CL[facility] [address] [place] [phone] 01/31/2025 Cindy Hughes [address] [place] [address] 11/10/2024 Cindy Hughes Obesity, unspecified E66.9 Assessments Encounter Date Diagnosis (ICD Code) Assessment Notes Treatment Notes Treatment Clinical Notes Section Notes 05/22/2024 Essential (primary) hypertension (ICD-10 - I10) 05/28/2024 Thyrotoxicosis with diffuse goiter without thyrotoxic crisis or storm (ICD-10 - E05.00) 07/19/2024 Obesity, unspecified (ICD-10 - E66.9) 07/19/2024 Essential (primary) hypertension (ICD-10 - I10) 10/27/2024 Autoimmune thyroiditis (ICD-10 - E06.3) 10/27/2024 Pure hyperglyceridemia (ICD-10 - E78.1) 11/10/2024 Obesity, unspecified (ICD-10 - E66.9) 03/15/2025 Autoimmune thyroiditis (ICD-10 - E06.3) 03/15/2025 Overweight (ICD-10 - E66.3) 03/15/2025 Pure hyperglyceridemia (ICD-10 - E78.1) 10/27/2024 Essential (primary) hypertension (ICD-10 - I10) 07/19/2024 Dietary counseling and surveillance (ICD-10 - Z71.3) 05/28/2024 Essential (primary) hypertension (ICD-10 - I10) 05/22/2024 Prediabetes (ICD-10 - R73.03) 05/22/2024 Obesity, unspecified (ICD-10 - E66.9) 05/28/2024 Obesity, unspecified (ICD-10 - E66.9) 07/19/2024 Pure hyperglyceridemia (ICD-10 - E78.1) 10/27/2024 Overweight (ICD-10 - E66.3) 03/15/2025 Essential (primary) hypertension (ICD-10 - I10) 10/27/2024 Obesity, unspecified (ICD-10 - E66.9) 03/15/2025 Goiter (ICD-10 - E04.9) 07/19/2024 Autoimmune thyroiditis (ICD-10 - E06.3) 03/15/2025 Dietary counseling and surveillance (ICD-10 - Z71.3) Spent 15 minutes preventative counseling patient on dietary recommendations and changes in setting of hyperglycemia- need to restrict refined sugars and processed foods and incorporate up to 150 minutes of moderate level activity weekly. 05/28/2024 Other Assessment and Plan: 1. Type 2 Diabetes Mellitus- Patient has been on Zepbound for nine weeks and has lost 18 pounds. A1c is 5.7.- Plan: Discontinue metformin due to gastrointestinal side effects. Continue Zepbound 5 mg and reassess in 2-3 months. Encourage patient to follow up with dietitian for further dietary management. 2. Hypertension- Patient reports variable blood pressure readings, currently on losartan 50 mg.- Plan: Encourage patient to take losartan consistently. Monitor blood pressure regularly and follow up in 2-3 months to assess the need for medication adjustment. 3. Hyperthyroidism- Patient's thyroid levels are within the normal range while taking methimazole once a week.- Plan: Discontinue methimazole and keep it on standby for potential acute viral triggers. Monitor thyroid levels as needed and advise the patient to contact the clinic if symptoms arise. 4. Elevated Magnesium- Patient's magnesium levels are slightly elevated, but she is not taking supplements or engaging in excessive exercise.- Plan: Order follow-up lab work to monitor magnesium levels. Encourage patient to maintain a balanced diet and regular physical activity. 5. Constipation- Patient reports occasional constipation.- Plan: Advise patient to consume 80-90 grams of protein per day, eat high-fiber foods, and drink 64-80 ounces of water daily to alleviate constipation. 6. Dry mouth and altered taste- Patient reports dry mouth and loss of taste for coffee.- Plan: Monitor symptoms and encourage patient to maintain adequate hydration. Reassess in 2-3 months. Follow-up:- Schedule a follow-up appointment in 2-3 months to monitor progress and reassess treatment plans.- Send lab work orders to patient's email ([email or web address]) and have them completed before the next appointment. Spent 25 minutes preparing to see the patient (ex review of tests/chart), obtaining and / or reviewing separately obtained history, performing a medically appropriate examination and/or evaluation, counseling and educating the patient/family/caregi alexis, ordering medications, tests, or procedures, referring and communicating with other health animal care service worker, documenting clinical information in the electronic or other health record, independently interpreting results and communicating results to the patient/family/caregi alexis and care coordinating patient plan. Patient alert and oriented x 4 and aware of discussion noted above and in agreeance to plan in management of hyperthyroidism, hypertension, obesity/weight management and prediabetes. Due to the nature of telemedicine, the ability to do physical assessment was limited to what can be accomplished by patient directed telehealth visit based on instruction. Those limits are understood by the patient and myself. Impression is based on history, available information, and physical findings accomplished with telehealth visit. Chronic disease/problem list/ medication list reviewed and updated where indicated. Discussed diagnosis, plan including risks, benefits, and options of treatment. Advised to call for new, worsening, or persistent symptoms. Level of patient risk was of moderate complexity due to the documented nature of presentation, the information assessment required and the nature of the development of an evaluation and treatment plan as documented. PMH, FHx, SHx, Surgical Hx, Quality management review carried out and addressed as documented today as part of this visit. Medication list was reviewed and adjusted as indicated. Medication requiring a refill was addressed. Risk and benefits of any new medications were discussed and all questions were answered. 07/19/2024 Other Assessment and Plan: HyperthyroidismPatien t has discontinued methimazole and is currently on Zepbound 5 mg with good response. Thyroid levels are stable. Continue Zepbound 5 mg Monitor thyroid levels at follow-up in 3-4 months HypertensionPatient is taking losartan 50 mg with blood pressure readings of 117/70 after taking the medication. Continue losartan 50 mg Monitor blood pressure regularly Weight LossPatient has lost 28 pounds total, with 11 pounds since May. Continue current dose of Zepbound Encourage regular exercise Call if weight loss stalls for possible dose adjustment DyslipidemiaLDL under 150, triglycerides slightly elevated, total cholesterol under 200, and HDL almost 60. Encourage consumption of salmon, oats, and avocados Consider fish oil supplementation with omega-3 fatty acids [id number] is now well below prediabetes levels (5.5-5.7). Continue Zepbound and monitor blood sugar levels Encourage a well-balanced diet with fruits, veggies, and lean meats, avoiding processed foods and starches Vitamin B12 and Folic Acid LevelsLevels are within normal range. If fatigue occurs, consider a methylated B12 folic acid supplement Follow-up:Email new lab order to [email or web address] chedule follow-up appointment in 3-4 monthsCall if any concerns or need for dosage adjustment arise Spent 15 minutes preventative counseling patient on dietary recommendations and changes in setting of hyperglycemia- need to restrict refined sugars and processed foods and incorporate up to 150 minutes of moderate level activity weekly. Spent 25 minutes preparing to see the patient (ex review of tests/chart), obtaining and / or reviewing separately obtained history, performing a medically appropriate examination and/or evaluation, counseling and educating the patient/family/caregi alexis, ordering medications, tests, or procedures, referring and communicating with other health animal care service worker, documenting clinical information in the electronic or other health record, independently interpreting results and communicating results to the patient/family/caregi alexis and care coordinating patient plan. Patient alert and oriented x 4 and aware of discussion noted above and in agreeance to plan in management of autoimmune thyroiditis, weight management/prediabete s (improved), mild hypertriglyceridemia, and hypertension. Due to the nature of telemedicine, the ability to do physical assessment was limited to what can be accomplished by patient directed telehealth visit based on instruction. Those limits are understood by the patient and myself. Impression is based on history, available information, and physical findings accomplished with telehealth visit. Chronic disease/problem list/ medication list reviewed and updated where indicated. Discussed diagnosis, plan including risks, benefits, and options of treatment. Advised to call for new, worsening, or persistent symptoms. Level of patient risk was of moderate complexity due to the documented nature of presentation, the information assessment required and the nature of the development of an evaluation and treatment plan as documented. PMH, FHx, SHx, Surgical Hx, Quality management review carried out and addressed as documented today as part of this visit. Medication list was reviewed and adjusted as indicated. Medication requiring a refill was addressed. Risk and benefits of any new medications were discussed and all questions were answered. 10/27/2024 Other Assessment and Plan: 1. Obesity, improving- Patient has achieved significant weight loss, from an initial weight of approximately 188-189 pounds to a current weight of 147.5-147.7 pounds, representing a total loss of about 40 pounds- Current BMI is 26- Patient is currently on Zepbound 5 mg, which has shown effectiveness but with reduced efficacy in recent months- Thyroid function tests are reported as outstanding, and the patient is not on thyroid medication- A1c is 5.5, indicating no insulin resistance- Increase Zepbound to 7.5 mg, pending patient tolerability- Continue weight loss efforts with a goal weight of 130-135 pounds- Emphasize hydration, high fiber intake, and adequate protein consumption- Encourage regular bowel movements- Follow up in 4 months- Patient to message if dose adjustment is needed before next appointment 2. Hypertriglyceridemia, mild- Recent lipid panel shows triglycerides of 196 mg/dL, which is mildly elevated- Overall cholesterol levels are described as outstanding- Recommend fish oil supplementation for triglyceride management- Continue monitoring lipid levels 3. Hypertension- Patient reports blood pressure readings in the 130s/80s range- Currently prescribed losartan for blood pressure management, but patient admits to occasional non-adherence- Continue losartan as prescribed- Emphasize medication adherence- Patient to have blood pressure checked at upcoming appointment with Kelsie Vargas 4. Vitamin D insufficiency- Recent vitamin D level is 33, indicating insufficiency- Recommend vitamin D supplementation of 7613-0347 IUs daily if not getting sufficient outdoor time- Alternative: large dose vitamin D every other week, especially with approaching summer 5. Knee pain- Patient reports knee discomfort- Has scheduled an appointment with Kelsie Vargas for evaluation- Await evaluation and recommendations from upcoming appointment with Kelsie Vargas Spent 25 minutes preparing to see the patient (ex review of tests/chart), obtaining and / or reviewing separately obtained history, performing a medically appropriate examination and/or evaluation, counseling and educating the patient/family/caregi alexis, ordering medications, tests, or procedures, referring and communicating with other health animal care service worker, documenting clinical information in the electronic or other health record, independently interpreting results and communicating results to the patient/family/caregi alexis and care coordinating patient plan. Patient alert and oriented x 4 and aware of discussion noted above and in agreeance to plan in management of autoimmune thyroiditis, weight management and hypertension/well controlled. Due to the nature of telemedicine, the ability to do physical assessment was limited to what can be accomplished by patient directed telehealth visit based on instruction. Those limits are understood by the patient and myself. Impression is based on history, available information, and physical findings accomplished with telehealth visit. Chronic disease/problem list/ medication list reviewed and updated where indicated. Discussed diagnosis, plan including risks, benefits, and options of treatment. Advised to call for new, worsening, or persistent symptoms. Level of patient risk was of moderate complexity due to the documented nature of presentation, the information assessment required and the nature of the development of an evaluation and treatment plan as documented. PMH, FHx, SHx, Surgical Hx, Quality management review carried out and addressed as documented today as part of this visit. Medication list was reviewed and adjusted as indicated. Medication requiring a refill was addressed. Risk and benefits of any new medications were discussed and all questions were answered. 03/15/2025 Sarita Wetzel, a patient with a history of Graves' disease and hypertension, presents for follow-up of weight management and thyroid function. ObesityAssessment: Patient reports successful weight loss over the past 2 months, with BMI now close to 25. Currently on 7.5 mg of weight loss medication (likely semaglutide or tirzepatide), which is effectively controlling food cravings and inflammation without significant side effects. Patient feels active and is exercising. A brief interruption in weight loss occurred during a road trip in early February.Plan:- Continue current weight loss medication at 7.5 mg- Encourage continuation of healthy, balanced diet and exercise regimen- Monitor for side effects such as nausea or vomiting- Follow up as needed HypertensionAssessmen t: Patient had discontinued losartan due to forgetting to take it. Recent blood pressure readings were slightly elevated but appeared to be improving with self-monitoring. No reported side effects from losartan.Plan:- Continue self-monitoring of blood pressure- Restart losartan if blood pressure consistently exceeds 135/85- Monitor for symptoms such as headaches or visual disturbances- Follow up if hypertension persists or symptoms develop Graves' Disease (in remission)Assessment: Patient has been off methimazole for over a year. Recent thyroid labs are reported as amazing, suggesting good control. Patient follows up annually with an consulting hr professional (Dr. Newton) in [place] for thyroid eye disease monitoring.Plan:- Continue current management without methimazole- Maintain annual ophthalmology follow-ups for thyroid eye disease monitoring- Continue healthy, balanced diet to support thyroid health- Follow up as neededv Spent 25 minutes preparing to see the patient (ex review of tests/chart), obtaining and / or reviewing separately obtained history, performing a medically appropriate examination and/or evaluation, counseling and educating the patient/family/caregi alexis, ordering medications, tests, or procedures, referring and communicating with other health animal care service worker, documenting clinical information in the electronic or other health record, independently interpreting results and communicating results to the patient/family/caregi alexis and care coordinating patient plan. Patient alert and oriented x 4 and aware of discussion noted above and in agreeance to plan in management of autoimmune thyroiditis/controlle d, pure triglyceridemia, weight management and goiter/need for thyroid u/s to monitor. Plan Of Treatment Pending Test Test Name Order Date *US HEAD AND NECK/THYROID 11038 03/15/20 25 Insurance Providers Payer Name Payer Address Payer Phone Subscriber Number Group Number Insured Name Patient Relationship to Insured Coverage Start Date Coverage End Date [employer] [address] [place] [phone] [id number] Damari Ventura Self - patient is the insured Medical (General) History Medical History History ICD Code GRAVES HYPERTHYROID Surgical History Surgery Date(Month/Year) DUSTIN 04/2023
--- OUTSIDE RECORDS SUMMARY | 2025-03-29 10:13 | XMS_ITS | Clinical Summary ---
Author Organization [facility] Address [address] [place] [phone] Care Team Providers Care Physician Scribe Name Role Phone Kelsie Krause Primary Care Pr ovider Allergies Active Allergy Reactions Criticality Noted Date Comments Clemizole Swelling Medium 12/09/2012 Patient does not recall this allergy reaction but search may be related to penicillin? Erythromycin Hives Medium 09/21/2018 Erythromycin Base Hives,Unknown Medium 07/23/2004 Penicillin G Swelling,Rash High 09/21/2018 Penicillin G Clemizole Swelling Medium 12/09/2012 Penicillins Other (See comments),Rash,Swell ing Medium 07/23/2004 Medications metoprolol XL (TOPROL-XL) 25 mg extended release tablet metoprolol succinate ER 25 mg tablet,extended release 24 hr TK 1 T PO QD IN THE MORNING Active methIMAzole (TAPAZOLE) 5 mg tablet TK 1 T PO D 0 Active Active Problems No known active problems Surgical History Surgery Date Site/Laterality Comments ABLATION 02/2014 Medical History Medical History Date Comments Thyroid disease Anemia Gastric reflux Family History Medical History Relation Name Comments Diabetes Father Hypertension Father Lung disease Father No Known Problems Mother Relation Name Status Comments Father Mother Social History Tobacco Use Types Packs/Day Years Used Date Smoking Tobacco: Never Assessed Comments Unknown Sex and Gender Information Value Date Recorded Sex Assigned at Not on file Legal Sex Female 10:17 AM [employer] Gender Identity Not on file Sexual Orientation Not on file Obstetrics History Last Filed Vital Signs Vital Sign Reading Time Taken Comments Blood Pressure 134/86 08/12/2017 1:30 PM [employer] Pulse 75 08/12/2017 1:30 PM [employer] Temperature - - Respiratory Rate - - Oxygen Saturation 97% 08/12/2017 1:30 PM [employer] Inhaled Oxygen Concentration - - Weight 66.2 kg (146 lb) 11/12/2024 8:20 AM CDT Height 154.9 cm (5' 1) 11/12/2024 8:20 AM CDT Body Mass Index 27.59 11/12/2024 8:20 AM CDT Plan of Treatment Health Maintenance Due Date Last Done Comments Breast Cancer Screening-Mammogram 1968 Colon Cancer Screening-Colonoscopy 1968 Depression Screening 1968 Hepatitis C Screening 1968 Hepatitis B Screening 1986 Regular Well Visit/Exam 18-64 1986 Pneumococcal vaccine <65 (1 of 2 - PCV) 11/09/1987 Cervical Cancer Screening 12/19/2006 12/19/2005 Zoster Vaccine (1 of 2) 2018 DTaP/Tdap/Td Vaccine (2 - Td or Tdap) 01/25/2021 Influenza Vaccine (#1) 2025 04/06/2013, 2008 Insurance [employer] [facility] Member Subscriber Plan / Payer (Ef fective 2020-Present) Name:Damari Doyle Member ID:[id number] Relation to Subscriber:Self Name:Damari Doyle Subscriber ID:[id number] Payer ID:[id number] Type:[employer] HMO/PPO Address: [facility] [id number] [place] [id number] [place] [id number] [facility] [id number] Care Teams Physician Scribe Relationship Specialty Start Date End Date Kelsie Krause PA PCP - General Physician Hand Flatwork Finisher 05/29/20
--- OUTSIDE RECORDS SUMMARY | 2025-03-29 10:13 | XMS_ITS | Encounter Summary ---
Author Organization [facility] Address [address] [facility] [place] [address] Care Team Providers Care Almond Huller Name Role Phone Cindy Hughes MD Unavailable [phone] Elsie Wright OD Unavailable [phone] Encounter Details Date Type Department Care Team (Late Contact Info) Description 11/17/2024 Lab Requisition [facility] [address] [place] [phone] Sobia Rodriguez MD [address] [place] [address] 3 [place] [address] Social History Tobacco Use Types Packs/Day Years Used Date Smoking Tobacco: Never Smokeless Tobacco: Never Comments No Sex and Gender Information Value Date Recorded Sex Assigned at Not on file Legal Sex Female 11:42 AM 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 PUMP ATTENDANT Gender Identity Not on file Sexual Orientation Not on file documented as of this encounter Plan of Treatment Upcoming Encounters Date Type Department Care Team (Late Contact Info) Description 09/07/2025 10:30 AM GAS PUMP ATTENDANT Office Visit [facility] - Ophthalmology [address] [place] [phone] Nadine Newton MD [address] [place] [address] [place] [phone] documented as of this encounter Procedures Procedure Name Priority Date/Time Associated Diagnosis Comments DERMATOPATHOLOGY Routine 11/17/2024 3:36 PM CDT documented in this encounter Results * DERMATOPATHOLOGY (11/17/2024 3:36 PM CDT) Case Report Dermatopathology Report Case: [id number] Authorizing Provider: Sobia Rodriguez MD Collected: 11/17/2024 03:36 PM Ordering Location: [facility] - Received: 11/18/2024 04:13 PM DermPath Lab Pathologist: Zuleika Aguero MD Specimens: A) - Skin, left thigh B) - Skin, left lateral cheek 10:07 AM CDT DERMATOPATHOLOGY LABORATORY Final Diagnosis Specimen A. 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 SKIN, left lateral cheek: COMPOUND MELANOCYTIC NEVUS (D22.39) 10:07 AM CDT DERMATOPATHOLOGY LABORATORY at 1007 CDT Clinical History A. Brown Changing Papule Nevus R/O Atypia B. Brown Changing Papule Nevus vs ISK vs. R/O Atypia 10:07 AM CDT DERMATOPATHOLOGY LABORATORY Gross Description Specimen A: Received is one formalin filled container labeled with the patient's name and designated left thigh. The specimen consists of a shave biopsy measuring 7x7x1 mm. Jar 0. Specimen B: Received is one formalin filled container labeled with the patient's name and designated left lateral cheek. The specimen consists of a shave biopsy measuring 7x4x1 mm. Jar 0. 10:07 AM CDT DERMATOPATHOLOGY LABORATORY Microscopic Description Specimen A. SKIN, left thigh: There are nests of melanocytes at the dermal-epidermal junction and within the dermis. Some melanocytes are splayed between collagen bundles and are localized around adnexal structures. There is melanin pigment in the stratum corneum. Specimen B. SKIN, left lateral cheek: There are nests of melanocytes at the dermal-epidermal junction and within the dermis. 10:07 AM CDT DERMATOPATHOLOGY LABORATORY Disclaimer An external and internal positive and negative controls are appropriate for the histochemical, immunohistochemical and immunofluorescence stain(s) in this case (if any), except where stated explicitly. The performance characteristics of the stain(s) cited in this report were developed and its performance characteristic determined by the Dermatopathology Laboratory at [facility], directed by Dr. Phani Carmona. These tests need not be, and therefore are not, approved by the [place] Food and Drug Administration. The tests are used for clinical purposes. Billing Codes Specimen Charges Stain Charges 67114 91760 1 1 5 10:07 AM CDT DERMATOPATHOLOGY LABORATORY Embedded Images 10:07 AM CDT DERMATOPATHOLOGY LABORATORY Pathology/Cytology TISSUE SPECIMEN FROM SKIN / Unknown 11/17/2024 3:36 PM CDT 11/18/2024 4:13 PM CDT Miscellaneous samples (specimen) TISSUE SPECIMEN FROM SKIN / Unknown 11/17/2024 3:36 PM CDT 11/18/2024 4:13 PM CDT us Sobia Rodriguez MD LAB - PATHOLOGY/CYTOLOGY ORD ERABLES Final Result DERMATOPATHOLOGY LABORATORY [facility] - Department of Dermatology [facility] Medicine [address] [place] [address], [address] Floor [address] [phone] documented in this encounter Visit Diagnoses Not on filedocumented in this encounter Care Teams Almond Huller Relationship Specialty Start Date End Date Cindy Hughes MD [address] [place] [address] Endocrinology 11/03/19 Elsie Wright OD [address] [place] [address] Blasting Miner 11/03/19 documented as of this encounter
--- OUTSIDE RECORDS SUMMARY | 2025-03-29 10:14 | XMS_ITS | Clinical Summary ---
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 Gender Identity Not on file Sexual Orientation Not on file Plan of Treatment Health Maintenance Due Date Last Done Comments Hepatitis C Virus (HCV) Screening 1968 TdaP Immunization 1968 Hepatitis B Immunization (1 of 3 - 19+ 3-dose series) 11/09/1987 Pap Smear 1989 Cervical Cancer Screening (CCS) 1998 HPV/Cotest 1998 Cologuard 2013 Colonoscopy 2013 Colorectal Cancer Screening 2013 Immunochemical Fecal Occult Blood 2013 Pneumococcal Immunization (5 0+ years) (1 of 1 - PCV) 2018 Zoster Immunization (1 of 2) 2018 SARS-COV-2 Immunization ( - season) 2024 Influenza Immunization (#1) 2025 Respiratory Syncytial Virus (RSV) Immunization (Adult) (1 - 1-dose 75+ series) 11/09/2043 Human Papillomavirus (HPV) Immunization Aged Out No longer eligible b ased on patient's age to complete this topic Meningococcal Immunization (ACWY) Aged Out No longer eligible based on patient's age to complete this topic Rotavirus Immunization Aged Out No lo nger eligible based on patient's age to complete this topic Insurance [employer] on file
--- OUTSIDE RECORDS SUMMARY | 2025-03-29 10:14 | XMS_ITS | Encounter Summary ---
Author Organization [facility] Address [address] [facility] [place] [address] Care Team Providers Care Director Of Supply Chain Name Role Phone Cindy Hughes MD Unavailable [phone] Elsie Wright OD Unavailable [phone] Encounter Details Date Type Department Care Team (Late Contact Info) Description 04/28/2023 Lab Requisition [facility] [address] [place] [phone] Sobia Rodriguez MD [address] [place] [address] 3 [place] [address] Social History Tobacco Use Types Packs/Day Years Used Date Smoking Tobacco: Never Smokeless Tobacco: Never Comments No Sex and Gender Information Value Date Recorded Sex Assigned at Not on file Legal 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 Female 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 Gender Identity Not on file Sexual Orientation Not on file documented as of this encounter Plan of Treatment Upcoming Encounters Date Type Department Care Team ([facility] Contact Info) Description 09/07/2025 10:30 AM PIEROGI MAKER Office Visit [facility] - Ophthalmology [address] [place] [phone] Nadine Newton MD [address] [place] [address] [place] [address] [phone] (work) documented as of this encounter Procedures Procedure Name Priority Date/Time Associated Diagnosis Comments DERMATOPATHOLOGY Routine 04/28/2023 3:02 PM CDT documented in this encounter Results * DERMATOPATHOLOGY (04/28/2023 3:02 PM CDT) Case Report Dermatopathology Report Case: [id number] Authorizing Provider: Sobia Rodriguez MD Collected: 04/28/2023 03:02 PM Ordering Location: [facility] DermPath Lab Received: 04/29/2023 11:39 AM Pathologist: Bria Valiente MD Specimen: Skin, right lateral cheek 8:42 AM CDT DERMATOPATHOLOGY LABORATORY Final Diagnosis Specimen A. SKIN, right lateral cheek: MELANOMA IN SITU, LENTIGINOUS TYPE (D03.39) PRESENT AT MARGIN (see microscopic description and comment) 8:42 AM CDT DERMATOPATHOLOGY LABORATORY at 0842 CDT Clinical History R/O Melanoma vs Lentigo vs Pig. vs AK 8:42 AM CDT DERMATOPATHOLOGY LABORATORY Gross Description Specimen A: Received is one formalin filled container labeled with the patient's name and designated right lateral cheek. The specimen consists of a shave biopsy measuring 9x9x1 mm. Jar 0. 8:42 AM CDT DERMATOPATHOLOGY LABORATORY Microscopic Description Specimen A. SKIN, right lateral cheek: There is a proliferation of melanocytes distributed in an irregular pattern along the dermal-epidermal junction with single cells predominating. Extension down the follicular epithelium and focal areas of confluence are present. This melanocytic proliferation is highlighted on MART-1/Melan-A. This lesion is present at the margin of the specimen. COMMENT: This case was also reviewed by Dr. Zuleika Aguero who agrees with the diagnosis. 8:42 AM CDT DERMATOPATHOLOGY LABORATORY Disclaimer An external and internal positive and negative controls are appropriate for the histochemical, immunohistochemical and immunofluorescence stain(s) in this case (if any), except where stated explicitly. The performance characteristics of the stain(s) cited in this report were developed and its performance characteristic determined by the Dermatopathology Laboratory at [facility], directed by Dr. Phani Carmona. These tests need not be, and therefore are not, approved by the [place] Food and Drug Administration. The tests are used for clinical purposes. Billing Codes Specimen Charges Stain Charges 26233 1 35426 1 3 8:42 AM CDT DERMATOPATHOLOGY LABORATORY Embedded Images 3 8:42 AM CDT DERMATOPATHOLOGY LABORATORY Pathology/Cytolo gy TISSUE SPECIMEN FROM SKIN / Unknown 04/28/2023 3:02 PM CDT 04/29/2023 11:39 AM CDT Sobia Rodriguez MD LAB - PATHOLOGY/CYTOLOGY ORD ERABLES Final Result DERMATOPATHOLOGY LABORATORY [facility] - Department of Dermatology [facility] Medicine [address] [place] [address], [address] [phone] documented in this encounter Visit Diagnoses Not on filedocumented in this encounter Care Teams Director Of Supply Chain Relationship Specialty Start Date End Date Cindy Hughes MD [address] [place] [address] Endocrinology 11/03/19 Elsie Wright OD [address] [place] [address] Supervisor [employer] 11/03/19 documented as of this encounter
--- OUTSIDE RECORDS SUMMARY | 2025-03-29 10:14 | XMS_ITS | Encounter Summary ---
Author Organization [facility] Address [address] [facility] [place] [address] Care Team Providers Care Scientific Laboratory Supervisor Name Role Phone Cindy Hughes MD Unavailable [phone] Elsie Wright OD Unavailable [phone] Encounter Details Date Type Department Care Team (Late Contact Info) Description 11/13/2023 Lab Requisition [facility] [address] [place] [phone] Sobia Rodriguez MD [address] [place] [address] 3 [place] [address] Social History Tobacco Use Types Packs/Day Years Used Date Smoking Tobacco: Never Smokeless Tobacco: Never Comments No Sex and Gender Information Value Date Recorded Sex Assigned at Not on file Legal Sex Female 11:42 AM VIDEO TAPE TRANSFERRER Gender Identity Not on file Sexual Orientation Not on file documented as of this encounter Plan of Treatment Upcoming Encounters Date Type Department Care Team (Late Contact Info) Description 09/07/2025 10:30 AM VIDEO TAPE TRANSFERRER Office Visit [facility] - Ophthalmology [address] [place] [phone] Nadine Newton MD [address] [place] [address] [place] [phone] documented as of this encounter Procedures Procedure Name Priority Date/Time Associated Diagnosis Comments DERMATOPATHOLOGY Routine 11/13/2023 10:3 9 AM CDT documented in this encounter Results * DERMATOPATHOLOGY (11/13/2023 10:39 AM CDT) Case Report Dermatopathology Report Case: [id number] Authorizing Provider: Sobia Rodriguez MD Collected: 11/13/2023 10:39 AM Ordering Location: [facility] - Received: 11/14/2023 09:56 AM DermPath Lab Pathologist: Zuleika Aguero MD Specimen: Skin, right cheek anterior 4:03 PM CDT DERMATOPATHOLOGY LABORATORY Final Diagnosis Specimen A. 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 BCC 4:03 PM CDT DERMATOPATHOLOGY LABORATORY Gross Description Specimen A: Received is one formalin filled container labeled with the patient's name and designated right cheek anterior. The specimen consists of a shave biopsy measuring 5x4x1 mm. Jar 0. 4:03 PM CDT DERMATOPATHOLOGY LABORATORY Microscopic Description Specimen A. SKIN, right cheek anterior: There are nests of cytologically bland melanocytes within the dermis that are highlighted by a MART-1/Melan A stain. PRAME is negative within the melanocytes. There is a dome-shaped portion of skin with psoriasiform epidermal hyperplasia, compact hyperkeratosis, and fibrosis of the papillary dermis associated with a superficial perivascular lymphohistiocytic infiltrate. A focal erosion is present. 4:03 PM CDT DERMATOPATHOLOGY LABORATORY Disclaimer An external and internal positive and negative controls are appropriate for the histochemical, immunohistochemical and immunofluorescence stain(s) in this case (if any), except where stated explicitly. The performance characteristics of the stain(s) cited in this report were developed and its performance characteristic determined by the Dermatopathology Laboratory at [facility], directed by Dr. Phani Carmona. These tests need not be, and therefore are not, approved by the [place] Food and Drug Administration. The tests are used for clinical purposes. Billing Codes Specimen Charges Stain Charges 57943 1 31445 38763 1 1 4 4:03 PM CDT DERMATOPATHOLOGY LABORATORY Embedded Images 4 4:03 PM CDT DERMATOPATHOLOGY LABORATORY Pathology/Cytolo gy TISSUE SPECIMEN FROM SKIN / Unknown 11/13/2023 10:39 AM CDT 11/14/2023 9:56 AM CDT Sobia Rodriguez MD LAB - PATHOLOGY/CYTOLOGY ORD ERABLES Final Result DERMATOPATHOLOGY LABORATORY [facility] - Department of Dermatology [facility] Medicine [address] [place] [address], [address] [phone] documented in this encounter Visit Diagnoses Not on filedocumented in this encounter Care Teams Scientific Laboratory Supervisor Relationship Specialty Start Date End Date Cindy Hughes MD [address] [place] [address] Endocrinology 11/03/19 Elsie Wright OD [address] [place] [address] Network Systems Analyst 11/03/19 documented as of this encounter
--- OUTSIDE RECORDS SUMMARY | 2025-03-29 10:14 | XMS_ITS | Encounter Summary ---
Author Organization [facility] Address [address] [facility] [place] [address] Care Team Providers Care Benefits Representative Name Role Phone Cindy Hughes MD Unavailable [phone] Elsie Wright OD Unavailable Encounter Details Date Type Department Care Team (Late Contact Info) Description 05/13/2019 Lab Requisition [facility] [address] [place] [phone] Eleonora Mayes DO [address] [place] [address] 3 [place] [address] Social History Tobacco Use Types Packs/Day Years Used Date Smoking Tobacco: Never Smokeless Tobacco: Never Comments No Sex and Gender Information Value Date Recorded Sex Assigned at Not on file Legal 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 Female 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 Gender Identity Not on file Sexual Orientation Not on file documented as of this encounter Plan of Treatment Upcoming Encounters Date Type Department Care Team (Late Contact Info) Description 09/07/2025 10:30 AM FAST FOOD CREW MEMBER Office Visit [facility] Op[facility]mology [address] [place] [phone] Nadine Newton MD [address] [place] [address] [place] [phone] documented as of this encounter Procedures Procedure Name Priority Date/Time Associated Diagnosis Comments DERMATOPATHOLOGY Routine 05/12/2019 12:0 0 AM FAST FOOD CREW MEMBER documented in this encounter Results * DERMATOPATHOLOGY (05/12/2019 12:00 AM FAST FOOD CREW MEMBER) Case Report Dermatopathology Report Case: [id number] Authorizing Provider: Eleonora Mayes DO Collected: 05/12/2019 12:00 AM Ordering Location: [facility] DermPath Lab Received: 05/13/2019 07:22 AM Pathologist: Karyn Carmona MD Specimens: A) - Skin, right cheek B) - Skin, right FA 4:04 PM [facility] DERMATOPATHOLOGY LABORATORY Final Diagnosis Specimen A. 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 B: LSC R/O NMSC. 4:04 PM [facility] DERMATOPATHOLOGY LABORATORY Gross Description Specimen A: Received is one formalin filled container labeled with the patient's name and designated right cheek. The specimen consists of a shave measuring 3x5l5ti. Jar 0. Specimen B: Received is one formalin filled container labeled with the patient's name and designated right FA. The specimen consists of a shave measuring 2r6t2wj. Jar 0. 4:04 PM [facility] DERMATOPATHOLOGY LABORATORY Microscopic Description Specimen A. SKIN, right cheek: The epidermis is eroded. There are nests of cytologically bland melanocytes within the dermis that mature with depth. Specimen B. SKIN, right FA: Sections show acanthosis, hypergranulosis, and hyperkeratosis. The papillary dermis is fibrotic. 4:04 PM [facility] DERMATOPATHOLOGY LABORATORY Disclaimer An external and internal positive and negative controls are appropriate for the histochemical, immunohistochemical and immunofluorescence stain(s) in this case (if any), except where stated explicitly. The performance characteristics of the stain(s) cited in this report were developed and its performance characteristic determined by the Dermatopathology Laboratory at [facility], directed by Dr. Phani Carmona. These tests need not be, and therefore are not, approved by the [place] Food and Drug Administration. The tests are used for clinical purposes. Billing Codes Specimen Charges Stain Charges 00813 67795 1 1 9 4:04 PM FAST FOOD CREW MEMBER DERMATOPATHOLOGY LABORATORY Embedded Images 9 4:04 PM FAST FOOD CREW MEMBER DERMATOPATHOLOGY LABORATORY Pathology/Cytology TISSUE SPECIMEN FROM SKIN / Unknown 05/12/2019 05/13/2019 7:22 AM FAST FOOD CREW MEMBER Miscellaneous samples (specimen) TISSUE SPECIMEN FROM SKIN / Unknown 05/12/2019 05/13/2019 7:22 AM FAST FOOD CREW MEMBER Eleonora Mayes DO LAB - PATHOLOGY/CYTOLOGY ORDERABLES Final Result DERMATOPATHOLOGY LABORATORY [facility] - Department of Dermatology [address] [place] [address] [address] [phone] documented in this encounter Visit Diagnoses Not on filedocumented in this encounter Care Teams Benefits Representative Relationship Specialty Start Date End Date Cindy Hughes MD [address] [place] [phone] Endocrinology 11/03/19 Elsie Wright OD [address] [place] [address] Mascara Molder 11/03/19 documented as of this encounter
--- OUTSIDE RECORDS SUMMARY | 2025-03-29 10:14 | XMS_ITS | Patient Health Record ---
Author Organization [facility] Address [address] [address] Care Team Providers Care Sixth Grade Teacher Name Role Phone Cindy Hughes Primary Care Provider Migration, Provider Unavailable Unavailable Allergies Allergen (clinical drug ingredient) Drug/Non Drug Allergy documented on EMR Reaction Allergy Type Onset Date Status penicillin G Penicillin G Potassium Unknown Drug Allergy Active erythromycin Erythromycin Unknown Drug Allergy A ctive Results Component Value Reference Range Notes COMPREHENSIVE METABOLIC PANE L Reviewed date:05/13/2024 08:49:12 PM Interpretation: Performing Lab:[facility], [address] [place], [address] Silvino Bermudez MD Notes/Report: FASTING:YES FASTING: YES ACTH, PLASMA Reviewed date:05/16/2024 09:11:47 AM Interpretation: Performing Lab:[facility], [address] [address] [facility] [address] [employer] [facility] [address], [place], [address] Eric Casillas M.D.,PhD Notes/Report: FASTING:YES FASTING: YES T3, FREE Reviewed date:05/13/2024 08:48:35 PM Interpretation: Performing Lab:[facility], [address] [place], [address] Silvino Bermudez MD Notes/Report: FASTING:YES FASTING: YES CORTISOL, TOTAL Reviewed date:05/13/2024 09:53:37 PM Interpretation: Performing Lab:[facility], [address] [place], [address] Silvino Bermudez MD Notes/Report: FASTING:YES FASTING: YES DHEA SULFATE Reviewed date:05/13/2024 09:53:55 PM Interpretation: Performing Lab:[facility], [address], [place], [address] Silvino Bermudez MD Notes/Report: FASTING:YES FASTING: YES HEMOGLOBIN A1c Reviewed date:05/13/2024 08:48:28 PM Interpretation: Performing Lab:[facility], [address], [place], [address] Silvino Bermudez Notes/Report: FASTING:YES FASTING: YES CBC (INCLUDES DIFF/PLT) Reviewed date:05/13/2024 08:49:31 PM Interpretation: Performing Lab:[facility], [address], [place], [place], [address] Silvino Bermudez MD Notes/Report: FASTING:YES FASTING: YES VITAMIN B12/FOLATE, SERUM PA MARITZA Reviewed date:05/13/2024 08:48:43 PM Interpretation: Performing Lab:[facility], [address], [place], [place], [address] Silvino Bermudez MD Notes/Report: FASTING:YES FASTING: YES LIPID PANEL Reviewed date:05/13/2024 08:48:58 PM Interpretation: Performing Lab:[facility], [address], [place], [address] Silvino Bermudez MD Notes/Report: FASTING:YES FASTING: YES T4, FREE Reviewed date:05/13/2024 08:51:29 PM Interpretation: Performing Lab:[facility], [address], [place], [address] Silvino Bermudez MD Notes/Report: FASTING:YES FASTING: YES TSH Reviewed date:05/13/2024 08:48:50 PM Interpretation: Performing Lab:[facility], [address], [place], [address] Silvino Bermudez MD Notes/Report: FASTING:YES FASTING: YES MAGNESIUM, RBC Reviewed date:05/20/2024 08:17:12 PM Interpretation: Performing Lab:[facility], [address], [address], [place], [address] John Williamson MD,PhD Notes/Report: FASTING:YES FASTING: YES MAGNESIUM, RBC 8.0 4.0-6.4 mg/dL (Note) This test was developed and its analytical performance characteristics have been determined by [employer]. It has not been cleared or approved by the FDA. This assay has been validated pursuant to the CLIA regulations and is used for clinical purposes. [facility] [address] [facility] [address] John Williamson MD, PhD COMPREHENSIVE METABOLIC PANE L Reviewed date:07/15/2024 05:22:04 PM Interpretation: Performing Lab:[facility], [address], [place], [address] Silvino Bermudez MD Notes/Report: FASTING:YES FASTING: YES T3, FREE Reviewed date:07/15/2024 05:22:04 PM Interpretation: Performing Lab:[facility], [address], [place], [address] Silvino Bermudez MD Notes/Report: FASTING:YES FASTING: YES HEMOGLOBIN A1c Reviewed date:07/15/2024 05:22:04 PM Interpretation: Performing Lab:[facility], [address], [place], [address] Silvino Bermudez Notes/Report: FASTING:YES FASTING: YES INSULIN Reviewed date:07/15/2024 05:22:04 PM Interpretation: Performing Lab:[facility], [address], [place], [address] Silvino Bermudez MD Notes/Report: FASTING:YES FASTING: YES CBC (INCLUDES DIFF/PLT) Reviewed date:07/15/2024 05:22:04 PM Interpretation: Performing Lab:[facility], [address], [place], [address] Silvino Bermudez MD Notes/Report: FASTING:YES FASTING: YES VITAMIN B12/FOLATE, SERUM PA MARITZA Reviewed date:07/15/2024 05:22:04 PM Interpretation: Performing Lab:[facility], [address] [place], [address] Silvino Bermudez MD Notes/Report: FASTING:YES FASTING: YES LIPID PANEL Reviewed date:07/15/2024 05:22:04 PM Interpretation: Performing Lab:[facility], [address] [place], [address] Silvino Bermudez MD Notes/Report: FASTING:YES FASTING: YES T4, FREE Reviewed date:07/15/2024 05:22:04 PM Interpretation: Performing Lab:[facility], [address] [place], [address] Silvino Bermudez MD Notes/Report: FASTING:YES FASTING: YES TSH Reviewed date:07/15/2024 05:22:04 PM Interpretation: Performing Lab:[facility], [address] [place], [address] Silvino Bermudez MD Notes/Report: FASTING:YES FASTING: YES Reason For Referral No Information Medications Medication SIG (Take, Route, Fr equency, Duration) Notes Start Date End Date Status Losartan Potassium 50 MG 1 tab(s) orally once a day for 90 days 03/22/2024 Active Zepbound 5 MG/0.5ML inject 5 mg subcutan eously once a week for 90 days 03/22/2024 Active Problems Problem Type SNOMED Code ICD Code Onset Dates Problem Status W/U Status Risk Notes Problem Essential hypertension (64756533) Essential (primary) hypertension (I10) Active confirmed Problem Pure hyperglyceridemia (217546362) Pure hyperglyceridemia (E78.1) Active confirmed Problem Obesity (577311911) Obesity, unspecified (E66.9) Active confirmed Problem 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 Problem Autoimmune thyroiditis (23654233) Autoimmune thyroiditis (E06.3) Active confirmed Vital Signs Heart Rate 60 /min 07/19/2024 Respiratory Rate 12 /min 07/19/2024 Blood pressure diastolic 72 mm Hg 07/19/2024 Height 62 in 07/19/2024 Blood pressure systolic 132 mm Hg 07/19/2024 Weight 160 lbs 07/19/2024 BMI 29.26 kg/m2 07/19/2024 Encounters Encounter Location Date Provider Diagnosis [facility] [address] [place] [address] 05/22/2024 Provider Migration Essential (primary) hypertension I10 ; Prediabetes R73.03 and Obesity, unspecified E66.9 [facility] [address] [place] [address] 05/28/2024 Cindy [email or web address] Thyrotoxicosis with diffuse goiter without thyrotoxic crisis or storm E05.00 ; Essential (primary) hypertension I10 and Obesity, unspecified E66.9 [facility] [address] [address] [place] [address] 07/19/2024 Cindy Saul Essential (primary) hypertension I10 ; Obesity, unspecified E66.9 ; Dietary counseling and surveillance Z71.3 ; Pure hyperglyceridemia E78.1 and Autoimmune thyroiditis E06.3 Assessments Encounter Date Diagnosis (ICD Code) Assessment Notes Treatment Notes Treatment Clinical Notes Section Notes 05/22/2024 Essential (primary) hypertension (ICD-10 - I10) 05/28/2024 Thyrotoxicosis with diffuse goiter without thyrotoxic crisis or storm (ICD-10 - E05.00) 07/19/2024 Essential (primary) hypertension (ICD-10 - I10) 07/19/2024 Obesity, unspecified (ICD-10 - E66.9) 05/22/2024 Prediabetes (ICD-10 - R73.03) 05/28/2024 Essential (primary) hypertension (ICD-10 - I10) 07/19/2024 Dietary counseling and surveillance (ICD-10 - Z71.3) 05/22/2024 Obesity, unspecified (ICD-10 - E66.9) 05/28/2024 Obesity, unspecified (ICD-10 - E66.9) 07/19/2024 Pure hyperglyceridemia (ICD-10 - E78.1) 07/19/2024 Autoimmune thyroiditis (ICD-10 - E06.3) 05/28/2024 Other Assessment and Plan: 1. Type [...] Send lab work orders to patient's email ([email or web address]) and have them completed before the next appointment. Spent 25 minutes preparing to see the patient (ex review of tests/chart), obtaining and / or reviewing separately obtained history, performing a medically appropriate examination and/or evaluation, counseling and educating the patient/family/caregi alexis, ordering medications, tests, or procedures, referring and communicating with other health hospice patient care secretary, documenting clinical information in the electronic or [...] fish oil supplementation with omega-3 fatty acids [id number] is now well below prediabetes levels (5.5-5.7). Continue Zepbound and monitor blood sugar levels Encourage a well-balanced diet with fruits, veggies, and lean meats, avoiding processed foods and starches Vitamin B12 and Folic Acid LevelsLevels are within normal range. If fatigue occurs, consider a methylated B12 folic acid supplement Follow-up:Email new lab order to [email or web address] chedule follow-up appointment in 3-4 monthsCall if [...] procedures, referring and communicating with other health hospice patient care secretary, documenting clinical information in the electronic or [...] were discussed and all questions were answered. Plan Of Treatment No Information Insurance Providers Payer Name Payer Address Payer Phone Subscriber Number Group Number Insured Name Patient Relationship to Insured Coverage Start Date Coverage End Date [employer] II [address] [place] [address] [id number] Damari Ventura Self - patient is the insured Medical (General) History Medical History History ICD Code GRAVES HYPERTHYROID Surgical History Surgery Date(Month/Year) DUSTIN 04/2023
--- OUTSIDE RECORDS SUMMARY | 2025-03-29 10:14 | XMS_ITS | Encounter Summary ---
Author Organization [facility] Address [address] [place] [address] Care Team Providers Care Spa Coordinator Name Role Phone Cindy Hughes MD Unavailable [phone] Elsie Wright OD Unavailable [phone] Encounter Details Date Type Department Care Team (Late Contact Info) Description 05/19/2023 Lab Requisition [facility] [address] [place] [phone] Magui Marmolejo MD [address] [place] [address] Social History Tobacco Use Types Packs/Day Years Used Date Smoking Tobacco: Never Smokeless Tobacco: Never Comments No Sex and Gender Information Value Date Recorded Sex Assigned at Not on file Legal Sex 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 Gender Identity Not on file Sexual Orientation Not on file documented as of this encounter Plan of Treatment Upcoming Encounters Date Type Department Care Team (Late Contact Info) Description 09/07/2025 10:30 AM ROTARY DRIER OPERATOR Office Visit [facility] - Ophthalmology [address] [place] [phone] Nadine Newton MD [address] [place] [address] [place] [address] [phone] (work) documented as of this encounter Procedures Procedure Name Priority Date/Time Associated Diagnosis Comments DERMATOPATHOLOGY Routine 05/19/2023 4:15 PM ROTARY DRIER OPERATOR documented in this encounter Results * DERMATOPATHOLOGY (05/19/2023 4:15 PM ROTARY DRIER OPERATOR) Case Report Dermatopathology Report Case: [id number] Authorizing Provider: Magui Marmolejo MD Collected: 05/19/2023 04:15 PM Ordering Location: [facility] DermPath Lab Received: 05/20/2023 03:29 PM Pathologist: Evelia Ragland MD Specimen: Skin, right lateral cheek 3 4:06 PM [facility] DERMATOPATHOLOGY LABORATORY Final Diagnosis Specimen A. 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 The 12 to 6 o'clock margin is inked green. The 6 o'clock to 12 o'clock margin is inked black. The 12 o'clock tip is submitted in cassette 1. The 6 o'clock tip is submitted in cassette 2. The remainder of the ellipse is serially sectioned and submitted in cassettes 3 - 4. Jar 0. 3 4:06 PM [facility] DERMATOPATHOLOGY LABORATORY Microscopic Description Specimen A. SKIN, right lateral cheek: There is a proliferation of melanocytes in the epidermis, with single cells predominating, distributed in an irregular pattern, highlighted by MART-1/MelanA immunostain. Focal tangential sectioning of adnexal extension is noted. This lesion is not present at the margin of the specimen. There are fibroblasts and collagen bundles oriented parallel to the skin surface with elongated blood vessels, some of which are oriented perpendicular to the skin surface. 3 4:06 PM ROTARY DRIER OPERATOR DERMATOPATHOLOGY LABORATORY Disclaimer An external and internal positive and negative controls are appropriate for the histochemical, immunohistochemical and immunofluorescence stain(s) in this case (if any), except where stated explicitly. The performance characteristics of the stain(s) cited in this report were developed and its performance characteristic determined by the Dermatopathology Laboratory at [facility], directed by Dr. Phani Carmona. These tests need not be, and therefore are not, approved by the [place] Food and Drug Administration. The tests are used for clinical purposes. Billing Codes Specimen Charges Stain Charges 17438 1 18013 00685 1 1 3 4:06 PM ROTARY DRIER OPERATOR DERMATOPATHOLOGY LABORATORY Embedded Images 3 4:06 PM ROTARY DRIER OPERATOR DERMATOPATHOLOGY LABORATORY Pathology/Cytolo gy TISSUE SPECIMEN FROM SKIN / Unknown 05/19/2023 4:15 PM ROTARY DRIER OPERATOR 05/20/2023 3:29 PM ROTARY DRIER OPERATOR Magui Marmolejo MD LAB - PATHOLOGY/CYTOLOGY ORDERA BLES Final Result DERMATOPATHOLOGY LABORATORY [facility] - Department of Dermatology [facility] Special[facility] [address] [place] [address], [address] [phone] documented in this encounter Visit Diagnoses Not on filedocumented in this encounter Care Teams Spa Coordinator Relationship Specialty Start Date End Date Cindy Hughes MD [address] [place] [address] Endocrinology 11/03/19 Elsie Wright OD [address] [place] [address] Risk Engineer 11/03/19 documented as of this encounter
== END 2025-03-29 09:30 | disposition home or self-care (01) ==
PROVIDERS: PCP Physician Assistant; Visit Provider Physician Assistant
DX: R10.11 Right upper quadrant pain (principal)
CPT/HCPCS: 76705

== ENCOUNTER 2025-04-06 07:40 | Outpatient (CLI) | payer OTHER, SELFPAY ==
--- OUTSIDE RECORDS SUMMARY | 2024-05-22 16:00 | XMS_ITS ---
Author Organization [facility] Address [address] [place] [address] Care Team Providers Care Document Preparer Microfilming Name Role Phone Cindy Hughes Unavailable [phone] Migration, Provider Unavailable Unavailable Allergies Allergen (clinical drug ingredient) Drug/Non Drug Allergy documented on EMR Reaction Allergy Type Onset Date Status erythromycin Erythromycin Unknown Drug Allergy A ctive penicillin G Penicillin G Potassium Unknown Drug Allergy [facility] Encounter Medications Medication SIG [...] Active Encounters Encounter Location Date Provider Diagnosis [address] [phone] 05/22/2024 Provider Migration Essential (primary) hypertension I10 [...] * Arlene OWENSB: 969 (54 yo F)Acc No.[id number]:05/22/2024 Patient: Elijah Damari duque Provider: Brooke Bhatti :1970 A ge:53 Y S ex:Female Date:05/22/2024 Phone: Address:[address] [place], [place] [phone] Subjective: * Chief Complaints: * M tum To [facility] Conversion Encounter * Medications: T [...] Electronic signature of Prov ider Migration on 04/06/2025 at 07:48 AM CDT Sign off status: Pending * Provider: Brooke brown Migration Date: 07/22/2023 Generated for Moiz greer/Anselmo/Korin on: 07:48 AM CDT
--- OUTSIDE RECORDS SUMMARY | 2024-05-22 16:00 | XMS_ITS ---
Author Organization [employer] [facility] Address [address] [address] Care Team Providers Care Bellman Name Role Phone Cindy Hughes Primary Care Provider Migration, Provider Unavailable Unavailable Allergies Allergen (clinical drug ingredient) Drug/Non Drug Allergy documented on EMR Reaction Allergy Type Onset Date Status penicillin G Penicillin G Potassium Unknown Drug Allergy Active erythromycin Erythromycin Unknown Drug Allergy A ctive REASON FOR VISIT [facility] To [facility] Conversion Encounter Medications Medication SIG (Take, [...] Active Encounters Encounter Location Date Provider Diagnosis [facility] [address] [address] 05/22/2024 Provider Migration Essential (primary) hypertension I10 [...] * Arlene OWENSB: 969 (54 yo F)Acc No.[id number]:05/22/2024 Patient: Damari DAVEY Provider: Brooke Bhatti :1970 A ge:53 Y S ex:Female Date:05/22/2024 Phone: Address:[address] [place], [place] [phone] Pcp:Cindy Hughes Subjective: * Chief Complaints: * [facility] . [facility] * Medical History: * Medications: [...] Procedure Codes: * Electronic signature of Prov sharir Migration on 04/06/2025 at 07:47 AM CDT Sign off status: Pending * Provider: Brooke brown Migration Date: 07/22/2023 Generated for Moiz greer/Anselmo/Korin on: 07:47 AM CDT
--- NOTE | ~2025-04-06 | NM_ITS ---
EXAMINATION: NM_HEPATWP_NM DATE: 04/06/2025 10:55 INDICATION: Right upper quadrant abdominal pain. COMPARISON: Ultrasound 03/29/2025 TECHNIQUE: 4.9 mCi Tc-99m mebrofenin (Choletec) was administered intravenously. Scintigraphic images of the abdomen were obtained for one hour. Then, 1.2 mcg sincalide (Kinevac) IV was administered, and imaging was continued for 30 minutes. FINDINGS: There is normal clearance of radiotracer from the blood pool. There is homogeneous tracer uptake by the liver. Activity progresses to the bowel and gallbladder. Gallbladder ejection fraction (GBEF) was 32%. Note that most patients with gallbladder dysfunction have GBEF < 35%, which overlaps with the broad normal range of 10-90%. IMPRESSION: 1. Gallbladder ejection fraction in the lower range of normal. Note that this value overlaps with the range of values that may be seen with gallbladder dysfunction and/or chronic cholecystitis if there is appropriate clinical correlation. Reviewed, dictated and finalized at location E. IMPRESSION: 1. Gallbladder ejection fraction in the lower range of normal. Note that this value overlaps with the range of values that may be seen with gallbladder dysfu nction and/or chronic cholecystitis if there is appropriate clinical correlatio nMiley
--- OUTSIDE RECORDS SUMMARY | 2025-04-06 07:48 | XMS_ITS | Clinical Summary ---
Author Organization [facility] Address [address] [place] [address] Care Team Providers Care Display Department Manager Name Role Phone Cindy Hughes MD Unavailable [phone] Elsie Wright OD Unavailable [phone] Source Comments [facility],non-owned Affiliates and Associated Physician Practices is amultiple site organization consisting of ambulatory clinics and hospital sitesin [place], [place], [place] and [place]. This disclosure is being madepursuant to the Care Everywhere program and may not contain all information available regarding this patient. Last updated 18.[facility] Allergies Active Allergy Reactions Criticality Noted [...] Active Cholecalcifero l (VITAMIN D3) 1.25 MG (19660 UT) capsule vitamin D3 2,000 unit-folic acid [...] on file Legal Sex Female 11:42 AM FLOOR RUNNER Gender Identity Not on file Sexual Orientation [...] st Contact Info) Description 09/07/2025 10:30 AM FLOOR RUNNER Office Visit [facility] - Ophthalmology [address] [place] [address] Nadine Newton MD [address] [place] [address] Health Maintenance Due Date Last [...] patient's age to complete this topic Insurance [employer] Care Teams Display Department Manager Relationship Specialty Start Date End Date Cindy Hughes MD [address] [place] [id number] Endocrinology 11/03/19 Elsie Wright OD [address] [place] [address] Senior Net Engineer 11/03/19
--- OUTSIDE RECORDS SUMMARY | 2025-04-06 07:48 | XMS_ITS | Patient Health Record ---
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 Name Role Phone Cindy Hughes Unavailable [phone] Migration, Provider Unavailable Unavailable Allergies Allergen (clinical drug ingredient) Drug/Non Drug Allergy documented on EMR Reaction Allergy Type Onset Date Status erythromycin Erythromycin Unknown Drug Allergy A ctive penicillin G Penicillin G Potassium Unknown Drug Allergy Active Results Component Value Reference Range Flag Notes COMPREHENSIVE METABOLIC PANE L Reviewed date:05/13/2024 08:49:12 PM Interpretation: Performing Lab:[facility], [facility], [address], [place], [address] GraceHelena Bermudez MD Notes/Report: Not Reported: BUN and Creatinine are within FASTING:YES Fasting reference interval reference range. FASTING: YES GLUCOSE 98 65-99 mg/dL N UREA NITROGEN (BUN) 21 7-25 mg/dL N CREATININE 0.73 0.50-1.03 mg/dL N EGFR 97 > OR = 60 mL/min/1.73m2 N BUN/CREATININE RATIO SEE NOTE: 6-22 (calc) SODIUM 141 135-146 mmol/L N POTASSIUM [...] date:05/16/2024 09:11:47 AM Interpretation: Performing Lab:[facility], [address], [place], [address] Eric Casillas M.D.,PhD Notes/Report: FASTING:YES Reference range applies only to specimens collected between 7am-10am. FASTING: YES ACTH, PLASMA 26 6-50 pg/mL T3, FREE Reviewed date:05/13/2024 08:48:35 PM Interpretation: Performing Lab:[facility], [address] [place], [address] Silvino Bermudez MD Notes/Report: FASTING:YES FASTING: YES T3, FREE 3.1 2.3-4.2 pg/mL N CORTISOL, TOTAL Reviewed date:05/13/2024 09:53:37 PM Interpretation: Performing Lab:[facility], [address] [place], [address] Silvino Bermudez MD Notes/Report: Reference Range: For 8 a.m.(7-9 a.m.) Specimen: 4.0-22.0 FASTING:YES Reference Range: For 4 p.m.(3-5 p.m.) Specimen: 3.0-17.0 * Please interpret above results accordingly * FASTING: YES CORTISOL, TOTAL 17.0 N DHEA SULFATE Reviewed date:05/13/2024 09:53:55 PM Interpretation: Performing Lab:[facility], [address] [place], [address] Silvino Bermudez MD Notes/Report: FASTING:YES FASTING: YES DHEA SULFATE 41 5-167 mcg/dL N HEMOGLOBIN A1c Reviewed date:05/13/2024 08:48:28 PM Interpretation: Performing Lab:[facility] [address] , [place], [address] Silvino Bermudez Notes/Report: For someone without known diabetes, a hemoglobin FASTING:YES A1c value between 5.7% and 6.4% is consistent with prediabetes and should be confirmed with a FASTING: YES follow-up test. For someone with known diabetes, [...] 5.7 <5.7 % of total Hgb H CBC (INCLUDES DIFF/PLT) Reviewed date:05/13/2024 08:49:31 PM Interpretation: Performing Lab:[facility], [address] [place], [address] Silvino Bermudez MD Notes/Report: For adults, a slight decrease in the calculated MCHC FASTING:YES value (in the range of 30 to 32 g/dL) is most likely not clinically significant; however, it should be FASTING: YES interpreted with caution in correlation with other [...] 11.1 7.5-12.5 fL N ABSOLUTE NEUTROPHILS 5564 8161-7866 cells/uL N ABSOLUTE LYMPHOCYTES 2494 850-3900 cells/uL N ABSOLUTE MONOCYTES 413 200-950 cells/uL N ABSOLUTE EOSINOPHILS 103 15-500 cells/uL N ABSOLUTE BASOPHILS 26 0-200 cells/uL N NEUTROPHILS 64.7 N LYMPHOCYTES 29.0 N MONOCYTES 4.8 N EOSINOPHILS 1.2 N BASOPHILS 0.3 N VITAMIN B12/FOLATE, SERUM PA MARITZA Reviewed date:05/13/2024 08:48:43 PM Interpretation: Performing Lab:[facility], [address] [place], [address] Silvino Bermudez MD Notes/Report: Reference Range FASTING:YES Low: <3.4 Borderline: 3.4-5.4 FASTING: YES Normal: >5.4 VITAMIN B12 025 656-7516 pg/mL N FOLATE, SERUM 7.2 N LIPID PANEL Reviewed date:05/13/2024 08:48:58 PM Interpretation: Performing Lab:[facility], [address] [place], [address] Silvino Bermudez MD Notes/Report: Reference range: <100 For patients with diabetes plus 1 major ASCVD risk FASTING:YES If a non-fasting specimen was collected, consider factor, treating to a non-HDL-C goal of <100 mg/dL repeat triglyceride testing on a fasting specimen Desirable range <100 mg/dL for primary prevention; (LDL-C of <70 mg/dL) is considered a therapeutic FASTING: YES if clinically indicated. <70 mg/dL for patients with CHD or diabetic patients option. Florence dodge al. J. of Clin. Lipidol. 2015;9:129-169. with > or = 2 CHD risk factors. LDL-C is now calculated using the Johnnie-Baum calculation, which is a validated novel method providing better accuracy than the Friedewald equation in the estimation of LDL-C. Johnnie SS et al. MARICARMEN. 2013;310(19): 4010-5719 (http://education.Synata/faq/LPJ951) CHOLESTEROL, TOTAL 195 <200 mg/dL N HDL CHOLESTEROL 60 > OR = 50 mg/dL N TRIGLYCERIDES 228 <150 mg/dL H LDL-CHOLESTEROL 100 H CHOL/HDLC RATIO 3.3 <5.0 (calc) N NON HDL CHOLESTEROL 135 <130 mg/dL (calc) H T4, FREE Reviewed date:05/13/2024 08:51:29 PM Interpretation: Performing Lab:[facility], [address] [place], [address] Silvino Bermudez MD Notes/Report: FASTING:YES FASTING: YES T4, FREE 1.2 0.8-1.8 ng/dL N TSH Reviewed date:05/13/2024 08:48:50 PM Interpretation: Performing Lab:[facility], [address] [place], [address] Silvino Bermudez MD Notes/Report: Reference Range FASTING:YES > or = 20 Years 0.40-4.50 FASTING: YES Ranges First trimester 0.26-2.66 Second trimester 0.55-2.73 Third trimester 0.43-2.91 TSH 0.51 N MAGNESIUM, RBC Reviewed date:05/20/2024 08:17:12 PM Interpretation: Performing Lab:[facility], [address], [address], [place], [address] John Williamson MD,PhD Notes/Report: (Note) FASTING:YES This test was developed and its analytical performance characteristics have been determined by [facility]. FASTING: YES It has not been cleared or approved by the FDA. This assay has been validated pursuant to the CLIA regulations and is used for clinical purposes. [facility] [address] [address],[address] [facility] [address] John Williamson MD, PhD MAGNESIUM, RBC 8.0 4.0-6.4 mg/dL H COMPREHENSIVE METABOLIC PANE L Reviewed date:07/15/2024 05:22:04 PM Interpretation: Performing Lab:[facility], [address] [facility] [place], [address] Silvino Bermudez MD Notes/Report: Not Reported: BUN and Creatinine are within FASTING:YES Fasting reference interval reference range. FASTING: YES GLUCOSE 96 65-99 mg/dL N UREA NITROGEN (BUN) 18 7-25 mg/dL N CREATININE 0.59 0.50-1.03 mg/dL N EGFR 106 > OR = 60 mL/min/1.73m2 N BUN/CREATININE RATIO SEE NOTE: 6-22 (calc) SODIUM 142 135-146 mmol/L N POTASSIUM [...] U/L N ALT 21 6-29 U/L N T3, FREE Reviewed date:07/15/2024 05:22:04 PM Interpretation: Performing Lab:[facility], [address] [place], [address] Silvino Bermudez MD Notes/Report: FASTING:YES FASTING: YES T3, FREE 3.1 2.3-4.2 pg/mL N HEMOGLOBIN A1c Reviewed date:07/15/2024 05:22:04 PM Interpretation: Performing Lab:[facility], [address], [place], [address] Silvino Bermudez Notes/Report: For the purpose of screening for the presence of FASTING:YES diabetes: FASTING: YES <5.7% Consistent with the absence of diabetes 5.7-6.4% Consistent with increased risk for diabetes (prediabetes) > or =6.5% Consistent with diabetes This assay result is consistent with a decreased risk of diabetes. Currently, no consensus exists regarding use of hemoglobin A1c for diagnosis of diabetes in children. According to [place] Diabetes Association (ADA) guidelines, hemoglobin A1c <7.0% represents optimal control in non- diabetic patients. Different metrics may apply to specific patient populations. Standards of Medical Care in Diabetes(ADA). HEMOGLOBIN A1c 5.5 <5.7 % of total Hgb N INSULIN Reviewed date:07/15/2024 05:22:04 PM Interpretation: Performing Lab:[facility], [address] [place], [address] Silvino Bermudez MD Notes/Report: Reference Range < or = 18.4 FASTING:YES Risk: FASTING: YES Optimal < or = 18.4 Moderate NA High >18.4 Adult cardiovascular event risk category cut points (optimal, moderate, high) are based on Insulin Reference Interval studies performed at [facility] in 2021. INSULIN 25.0 H CBC (INCLUDES DIFF/PLT) Reviewed date:07/15/2024 05:22:04 PM Interpretation: Performing Lab:[facility], [address] [place], [address] Silvino Bermudez MD Notes/Report: For adults, a slight decrease in the calculated MCHC FASTING:YES value (in the range of 30 to 32 g/dL) is most likely not clinically significant; however, it should be FASTING: YES interpreted with caution in correlation with other [...] 11.1 7.5-12.5 fL N ABSOLUTE NEUTROPHILS 4521 2702-5925 cells/uL N ABSOLUTE LYMPHOCYTES 9920 337-7892 cells/uL N ABSOLUTE MONOCYTES 323 200-950 cells/uL N ABSOLUTE EOSINOPHILS 73 15-500 cells/uL N ABSOLUTE BASOPHILS 40 0-200 cells/uL N NEUTROPHILS 68.5 N LYMPHOCYTES 24.9 N MONOCYTES 4.9 N EOSINOPHILS 1.1 N BASOPHILS 0.6 N VITAMIN B12/FOLATE, SERUM PA MARITZA Reviewed date:07/15/2024 05:22:04 PM Interpretation: Performing Lab:[facility], [address] [place], [address] Silvino Bermudez MD Notes/Report: Reference Range FASTING:YES Low: <3.4 Borderline: 3.4-5.4 FASTING: YES Normal: >5.4 VITAMIN B12 793 677-2084 pg/mL N FOLATE, SERUM 6.8 N LIPID PANEL Reviewed date:07/15/2024 05:22:04 PM Interpretation: Performing Lab:[facility], [address] [place], [address] Silvino Bermudez MD Notes/Report: Reference range: <100 For patients with diabetes plus 1 major ASCVD risk FASTING:YES If a non-fasting specimen was collected, consider factor, treating to a non-HDL-C goal of <100 mg/dL repeat triglyceride testing on a fasting specimen Desirable range <100 mg/dL for primary prevention; (LDL-C of <70 mg/dL) is considered a therapeutic FASTING: YES if clinically indicated. <70 mg/dL for patients with CHD or diabetic patients option. Florence et al. J. of Clin. Lipidol. 2015;9:129-169. with > or = 2 CHD risk factors. LDL-C is now calculated using the Johnnie-Sarika calculation, which is a validated novel method providing better accuracy than the Friedewald equation in the estimation of LDL-C. Johnnie SS et al. MARICARMEN. 2013;310(19): 4399-8736 (http://education.Synata/faq/EGO178) CHOLESTEROL, TOTAL 197 <200 mg/dL N HDL CHOLESTEROL 54 > OR = 50 mg/dL N TRIGLYCERIDES 230 <150 mg/dL H LDL-CHOLESTEROL 108 H CHOL/HDLC RATIO 3.6 <5.0 (calc) N NON HDL CHOLESTEROL 143 <130 mg/dL (calc) H T4, FREE Reviewed date:07/15/2024 05:22:04 PM Interpretation: Performing Lab:[facility], [address] [place], [address] Silvino Bermudez MD Notes/Report: FASTING:YES FASTING: YES T4, FREE 1.2 0.8-1.8 ng/dL N TSH Reviewed date:07/15/2024 05:22:04 PM Interpretation: Performing Lab:[facility], [address] [place], [address] Silvino Bermudez MD Notes/Report: Reference Range FASTING:YES > or = 20 Years 0.40-4.50 FASTING: YES Ranges First trimester 0.26-2.66 Second trimester 0.55-2.73 Third trimester 0.43-2.91 TSH 0.71 N .COMPREHENSIVE METABOLIC SHINE EL (18927) CMP Reviewed date:10/17/2024 12:28:43 PM Interpretation: Performing Lab:[facility] [address] OrtctilHG[address] GraceHelena Bermudez Notes/Report: FASTING:YES FASTING: YES GLUCOSE 94 65-99 mg/dL N Fasting reference interval UREA NITROGEN (BUN) 15 7-25 mg/dL N CREATININE 0.60 0.50-1.03 mg/dL N EGFR 106 > OR = 60 mL/min/1.73m2 N BUN/CREATININE RATIO SEE NOTE: 6-22 (calc) reference range. Not Reported: BUN and Creatinine are within SODIUM 141 135-146 mmol/L N POTASSIUM 4.4 [...] U/L N ALT 20 6-29 U/L N IRON AND TOTAL IRON BINDING CAPACITY (7573) Reviewed date:10/17/2024 12:28:43 PM Interpretation: Performing Lab:[facility] [facility], VqyokzEV[address] [facility] Notes/Report: FASTING:YES FASTING: YES IRON, TOTAL 53 45-160 mcg/dL N IRON BINDING CAPACITY 321 250-450 mc g/dL (calc) N % SATURATION 17 16-45 % (calc) N .LIPID PANEL, STANDARD (7600 ) Reviewed date:10/17/2024 12:28:43 PM Interpretation: Performing Lab:[facility] [id number] DyuiznkSG[address] Silvino Bermudez Notes/Report: FASTING:YES FASTING: YES CHOLESTEROL, TOTAL 174 <200 mg/dL N HDL CHOLESTEROL 54 > OR = 50 mg/dL N TRIGLYCERIDES 196 <150 mg/dL H LDL-CHOLESTEROL 91 N LDL-C is now calculated using the Mary better accuracy than the Friedewald equation in the Reference range: <100 (http://Metail.Vaccibody/faq/OCM527) estimation of LDL-C. calculation, which is a validated novel method providing <70 mg/dL for patients with CHD or diabetic patients with > or = 2 CHD risk factors. Desirable range <100 mg/dL for primary prevention; Johnnie DESAI et al. MARICARMEN. 2013;310(19): 8753-8269 CHOL/HDLC RATIO 3.2 <5.0 (calc) N NON HDL CHOLESTEROL 120 <130 mg/dL (calc) N factor, treating to a non-HDL-C goal of <100 mg/dL option. (LDL-C of <70 mg/dL) is considered a therapeutic For patients with diabetes plus 1 major ASCVD risk .CBC (INCLUDES DIFF/PLT) (63 99) Reviewed date:10/17/2024 12:28:43 PM Interpretation: Performing Lab:[facility] [place] [id number] [facility] Notes/Report: FASTING:YES FASTING: YES WHITE BLOOD CELL COUNT 6.8 3.8-10.8 Thousand/uL N RED BLOOD CELL COUNT 4.87 3.80-5.10 Million/uL N HEMOGLOBIN 13.8 11.7-15.5 g/dL N HEMATOCRIT 42.5 35.0-45.0 % N MCV 87.3 80.0-100.0 fL N MCH 28.3 27.0-33.0 pg N MCHC 32.5 32.0-36.0 g/dL N For adults, a slight decrease in the calculated MCHC condition. not clinically significant; however, it should be red cell parameters and the patient's clinical interpreted with caution in correlation with other value (in the range of 30 to 32 g/dL) is most likely RDW 13.6 11.0-15.0 % N PLATELET COUNT 222 140-400 Thousand/uL N MPV 11.8 7.5-12.5 fL N ABSOLUTE NEUTROPHILS 4536 7032-0449 cells/uL N ABSOLUTE LYMPHOCYTES 0117 375-9894 cells/uL N ABSOLUTE MONOCYTES 333 200-950 cells/uL N ABSOLUTE EOSINOPHILS 68 15-500 cells/uL N ABSOLUTE BASOPHILS 27 0-200 cells/uL N NEUTROPHILS 66.7 N LYMPHOCYTES 27.0 N MONOCYTES 4.9 N EOSINOPHILS 1.0 N BASOPHILS 0.4 N .HEMOGLOBIN A1c (496) Reviewed date:10/17/2024 12:28:43 PM Interpretation: Performing Lab:[facility] [place] [address] Silvino Bermudez Notes/Report: FASTING:YES FASTING: YES HEMOGLOBIN A1c 5.5 <5.7 % of total Hgb N guidelines, hemoglobin A1c <7.0% represents optimal <5.7% Consistent with the absence of diabetes control in non- diabetic patients. Different Standards of Medical Care in Diabetes(ADA). 5.7-6.4% Consistent with increased risk for diabetes This assay result is consistent with a decreased risk of diabetes. Currently, no consensus exists regarding use of > or =6.5% Consistent with diabetes diabetes: metrics may apply to specific patient populations. For the purpose of screening for the presence of hemoglobin A1c for diagnosis of diabetes in children. (prediabetes) According to [place] Diabetes [employer] (ADA) INSULIN (561) Reviewed date:10/17/2024 12:28:43 PM Interpretation: Performing Lab:[facility]-Itznlg[address], BfvqovRZ[address] Silvino Bermudez MD Notes/Report: FASTING:YES FASTING: YES INSULIN 14.8 N cut points (optimal, moderate, high) Adult cardiovascular event risk category Risk: Optimal < or = 18.4 Moderate NA studies performed at [facility] in 2021. High >18.4 are based on Insulin Reference Interval Reference Range < or = 18.4 VITAMIN B12/FOLATE, SERUM PA MARITZA (7240) Reviewed date:10/17/2024 12:28:43 PM Interpretation: Performing Lab:[facility]-[address], VqwafuHP[address] Silvino Bermudez MD Notes/Report: FASTING:YES FASTING: YES VITAMIN B12 999 805-5431 pg/mL N FOLATE, SERUM 6.6 N Low: <3.4 Borderline: 3.4-5.4 Reference Range Normal: >5.4 T4, FREE (866) Reviewed date:10/17/2024 12:28:43 PM Interpretation: Performing Lab:[facility] [place] [address] [place] [address] [facility] Notes/Report: FASTING:YES FASTING: YES T4, FREE 1.3 0.8-1.8 ng/dL N TSH (899) Reviewed date:10/17/2024 12:28:43 PM Interpretation: Performing Lab:[place] [address] Notes/Report: FASTING:YES FASTING: YES TSH 0.51 N First trimester 0.26-2.66 Third trimester 0.43-2.91 Ranges > or = 20 Years 0.40-4.50 Second trimester 0.55-2.73 Reference Range T3, FREE (10408) Reviewed date:10/17/2024 12:28:43 PM Interpretation: Performing Lab:[facility]-Oangsk[address], HbfpqhKF[address] Silvino Bermudez MD Notes/Report: FASTING:YES FASTING: YES T3, FREE 3.2 2.3-4.2 pg/mL N .VITAMIN D,25-OH,TOTAL,IA (1 7399) Reviewed date:10/17/2024 12:28:43 PM Interpretation: Performing Lab:[facility]-[address] [place] Silvino Bermudez MD Notes/Report: FASTING:YES FASTING: YES VITAMIN D,25-OH,TOTAL,IA 33 30-100 ng/mL N For additional information, please refer to Vitamin D Status 25-OH Vitamin D: of D2 and D3 fractions is required, the QuestAssureD(TM) Insufficiency: 20 - 29 ng/mL Note 1 educational purposes only.) http://education.sentitO Networks/faq/FWH240 For 25-OH Vitamin D testing on patients on Deficiency: <20 ng/mL See Note 1 D2-supplementation and patients for whom quantitation Optimal: > or = 30 ng/mL 25-OH VIT D, (D2,D3), LC/MS/MS is recommended: order code 14700 (patients >2yrs). (This link is being provided for informational/ .COMPREHENSIVE METABOLIC SHINE (09445) [facility] Reviewed date:02/24/2025 08:36:46 PM Interpretation: Performing Lab:[facility]-Fbpbid[address], XitlfnJM[address] Silvino Bermudez MD Notes/Report: FASTING:YES FASTING: YES GLUCOSE 85 65-99 mg/dL N Fasting reference interval UREA NITROGEN (BUN) 18 7-25 mg/dL N CREATININE 0.67 0.50-1.03 mg/dL N EGFR 103 > OR = 60 mL/min/1.73m2 N BUN/CREATININE RATIO SEE NOTE: 6-22 (calc) reference range. Not Reported: BUN and Creatinine are within SODIUM 142 135-146 mmol/L N POTASSIUM 4.7 [...] U/L N ALT 28 6-29 U/L N .LIPID PANEL, STANDARD (7600 ) Reviewed date:02/24/2025 08:36:46 PM Interpretation: Performing Lab:[facility]-Mwftzc[address], KjhsflSJ[address] Silvino Bermudez MD Notes/Report: FASTING:YES FASTING: YES CHOLESTEROL, TOTAL 173 <200 mg/dL N HDL CHOLESTEROL 52 > OR = 50 mg/dL N TRIGLYCERIDES 168 <150 mg/dL H LDL-CHOLESTEROL 94 N Desirable range <100 mg/dL for primary prevention; Johnnie SS et al. MARICARMEN. 2013;310(19): 7949-1105 (http://education.Vaccibody/faq/YMW966) LDL-C is now calculated using the Johnnie-Baum <70 mg/dL for patients with CHD or diabetic patients Reference range: <100 estimation of LDL-C. better accuracy than the Friedewald equation in the with > or = 2 CHD risk factors. calculation, which is a validated novel method providing CHOL/HDLC RATIO 3.3 <5.0 (calc) N NON HDL CHOLESTEROL 121 <130 mg/dL (calc) N factor, treating to a non-HDL-C goal of <100 mg/dL For patients with diabetes plus 1 major ASCVD risk option. (LDL-C of <70 mg/dL) is considered a therapeutic .CBC (INCLUDES DIFF/PLT) (63 99) Reviewed date:02/24/2025 08:36:46 PM Interpretation: Performing Lab:[facility]-Ufkoks[address], BgpwwpIW[address] Silvino Bermudez MD Notes/Report: FASTING:YES FASTING: YES WHITE BLOOD CELL COUNT 6.5 3.8-10.8 Thousand/uL N RED BLOOD CELL COUNT 4.93 3.80-5.10 Million/uL N HEMOGLOBIN 14.0 11.7-15.5 g/dL N HEMATOCRIT 44.4 35.0-45.0 % N MCV 90.1 80.0-100.0 fL N MCH 28.4 27.0-33.0 pg N MCHC 31.5 32.0-36.0 g/dL L value (in the range of 30 to 32 g/dL) is most likely condition. not clinically significant; however, it should be interpreted with caution in correlation with other For adults, a slight decrease in the calculated MCHC red cell parameters and the patient's clinical RDW 13.3 11.0-15.0 % N PLATELET COUNT 231 140-400 Thousand/uL N MPV 10.6 7.5-12.5 fL N ABSOLUTE NEUTROPHILS 4238 8836-8050 cells/uL N ABSOLUTE LYMPHOCYTES 6661 928-5859 cells/uL N ABSOLUTE MONOCYTES 338 200-950 cells/uL N ABSOLUTE EOSINOPHILS 78 15-500 cells/uL N ABSOLUTE BASOPHILS 52 0-200 cells/uL N NEUTROPHILS 65.2 N LYMPHOCYTES 27.6 N MONOCYTES 5.2 N EOSINOPHILS 1.2 N BASOPHILS 0.8 N T4, FREE (866) Reviewed date:02/24/2025 08:36:46 PM Interpretation: Performing Lab:[facility]-Vmhwlz[address], QiazkjHD[address] Silvino Bermudez MD Notes/Report: FASTING:YES FASTING: YES T4, FREE 1.3 0.8-1.8 ng/dL N TSH (899) Reviewed date:02/24/2025 08:36:46 PM Interpretation: Performing Lab:[facility] I[facility]-Hzpfuo[address], WvlntySH[address] Silvino Bermudez MD Notes/Report: FASTING:YES FASTING: YES TSH 0.94 0.40-4.50 mIU/L N T3, FREE (24058) Reviewed date:02/24/2025 08:36:46 PM Interpretation: Performing Lab:[facility] I[facility]-Hmowno[address], GpbktgJI[address] Silvino Bermudez MD Notes/Report: FASTING:YES FASTING: YES T3, FREE 3.4 2.3-4.2 pg/mL N Reason For Referral No Information Medications Medication [...] Problem Toxic diffuse goiter with no crisis (967577598) 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 Problem Autoimmune thyroiditis (69141524) Autoimmune thyroiditis (E06.3) Active confirmed Problem Overweight (002349862) Overweight (E66.3) Active confirmed Problem Obesity (387661029) Obesity, unspecified (E66.9) Active confirmed Problem Pure hyperglyceridemia (237564270) Pure hyperglyceridemia (E78.1) Active confirmed Problem Essential hypertension (50546607) Essential (primary) hypertension (I10) Active confirmed Problem Goiter (3379199) Goiter (E04.9) Active confirme d Vital Signs Heart Rate 70 /min 03/15/2025 Respiratory Rate 12 /min 10/27/2024 Oximetry 98 % 03/15/2025 Height-cm 157.48 cm 03/15/2025 Blood pressure diastolic 75 mm Hg 03/15/2025 Weight-kg 63.96 kg 03/15/2025 Height 62 in 03/15/2025 Blood pressure systolic 148 mm Hg 03/15/2025 Weight 141 lbs 03/15/2025 BMI 25.79 kg/m2 03/15/2025 Encounters Encounter Location Date Provider Diagnosis [id number] [place], [place] [phone] 05/22/2024 Provider Migration Essential (primary) hypertension I10 ; Prediabetes R73.03 and Obesity, unspecified E66.[address] Hughes [address] [place] [phone] 05/28/2024 Cindy Hughes Thyrotoxicosis with diffuse goiter without thyrotoxic crisis or storm E05.00 ; Essential (primary) hypertension I10 and Obesity, unspecified E66.[address] Hughes [address] [place] [phone] 07/19/2024 Cindy Hughes Obesity, unspecified E66.9 ; Essential (primary) hypertension I10 ; Dietary counseling and surveillance Z71.3 ; Pure hyperglyceridemia E78.1 and Autoimmune thyroiditis E06.[address] Hughes [address] [place] [phone] 10/27/2024 Cindy Hughes Autoimmune thyroidit is E06.3 ; Pure hyperglyceridemia E78.1 ; Essential (primary) hypertension I10 ; Overweight E66.3 and Obesity, unspecified E66.[address] Hughes [id number] [place] [phone] 03/15/2025 Cindy Hughes Autoimmune thyroidit is E06.3 ; Overweight E66.3 ; Pure hyperglyceridemia E78.1 ; Essential (primary) hypertension I10 ; Goiter E04.9 and Dietary counseling and surveillance Z71.[address] Hughes [id number] [place] [phone] 11/17/2024 [place]indy [place] [phone] 11/22/2024 Cindy [facility] [address] [place] [phone] 01/31/2025 Cindy CLARK [facility] [address] [place] [phone] 03/31/2025 Cindy Hughes [address] [place] [address] 11/10/2024 Cindy Hughes Obesity, unspecified E66.9 Assessments [...] Send lab work orders to patient's email ([email or web address]) and have them completed before the next appointment. Spent 25 minutes preparing to see the patient (ex review of tests/chart), obtaining and / or reviewing separately obtained history, performing a medically appropriate examination and/or evaluation, counseling and educating the patient/family/caregi alexis, ordering medications, tests, or procedures, referring and communicating with other health care aide, documenting clinical information in the electronic or [...] fish oil supplementation with omega-3 fatty acids [id number] is now well below prediabetes levels (5.5-5.7). Continue Zepbound and monitor blood sugar levels Encourage a well-balanced diet with fruits, veggies, and lean meats, avoiding processed foods and starches Vitamin B12 and Folic Acid LevelsLevels are within normal range. If fatigue occurs, consider a methylated B12 folic acid supplement Follow-up:Email new lab order to [email or web address] chedule follow-up appointment in 3-4 monthsCall if [...] procedures, referring and communicating with other health care aide, documenting clinical information in the electronic or [...] indicating insufficiency- Recommend vitamin D supplementation of 4564-9616 IUs daily if not getting sufficient outdoor [...] procedures, referring and communicating with other health care aide, documenting clinical information in the electronic or [...] control. Patient follows up annually with an control room tender (Dr. Newton) in [place] for thyroid eye disease monitoring.Plan:- Continue current [...] procedures, referring and communicating with other health care aide, documenting clinical information in the electronic or [...] Name Order Date *US HEAD AND NECK/THYROID [id number] 03/15/20 25 Insurance Providers Payer Name Payer Address Payer Phone Subscriber Number Group Number Insured Name Patient Relationship to Insured Coverage Start Date Coverage End Date [employer] [address] [place], [place] [id number] Damari Ventura Self - patient is the insured Medical (General) History Medical History History ICD Code GRAVES HYPERTHYROID Surgical History Surgery Date(Month/Year) DUSTIN 04/2023
--- OUTSIDE RECORDS SUMMARY | 2025-04-06 07:48 | XMS_ITS | Clinical Summary ---
Author Organization [facility] Address [address] [place] [address] Care Team Providers Care Advanced Practice Provider Name Role Phone Kelsie Krause Primary Care [...] on file Legal Sex Female 10:17 AM SHEET ROCK FINISHER Gender Identity Not on file Sexual Orientation Not on file Obstetrics History Last Filed Vital Signs Vital Sign Reading Time Taken Comments Blood Pressure 134/86 08/12/2017 1:30 PM SHEET ROCK FINISHER Pulse 75 08/12/2017 1:30 PM SHEET ROCK FINISHER Temperature - - Respiratory Rate - - Oxygen Saturation 97% 08/12/2017 1:30 PM SHEET ROCK FINISHER Inhaled Oxygen Concentration - - Weight 66.2 [...] Influenza Vaccine (#1) 2025 04/06/2013, 2008 Insurance [email or web address] [facility] [place] [id number] [facility] [id number] Care Teams Advanced Practice Provider Relationship Specialty Start Date End Date Kelsie Krause PA PCP - General Physician Sfdc Architect 05/29/20
--- OUTSIDE RECORDS SUMMARY | 2025-04-06 07:48 | XMS_ITS | Clinical Summary ---
Author Organization [facility] Address [address] [place] [address] Care Team Providers Care Transfer Machine Operator Name Role Phone Unavailable Primary Care Provider Unavailabl e Social History Tobacco Use Types Packs/Day Years Used Date Smoking Tobacco: Never Assessed Comments Unknown Sex and Gender Information Value Date Recorded Sex Assigned at Not on file Legal Sex Female 9:20 PM CDT Gender Identity Not on file Sexual Orientation Not on file Last Filed Vital Signs Vital Sign Reading Time Taken Comments Blood Pressure 126/64 02/09/2016 3:38 PM CDT Pulse 82 02/09/2016 3:38 PM CDT Temperature - - Respiratory Rate - - Oxygen Saturation - - Inhaled Oxygen Concentration - - Weight 77.6 kg (171 lb) 02/09/2016 3:38 PM CDT Height 154.9 cm (5' 1) 02/09/2016 3:38 PM CDT Body Mass Index 32.31 02/09/2016 3:38 PM CDT Plan of Treatment Health Maintenance Due Date Last Done Comments Colorectal Cancer Screening Colonoscopy (10 Years) 1968 Annual Physical 11/09/1971 Hepatitis C 1986 Hepatitis B Vaccines (1 of 3 - 19+ 3-dose series) 11/09/1987 Mammogram Screening 2008 Pneumococcal Vaccine: 50+ Years (1 of 1 - PCV) 2018 Zoster Vaccines (1 of 2) 2018 Cervical Cancer Screening Pa p Smear (Age 30 to 64) Every 3 Years 07/02/2020 07/02/2017, 12/19/2005 DTaP, Tdap and Td Vaccines ( 2 - Td or Tdap) 01/25/2021 01/25/2011 Cervical Cancer Screening Pa p with HPV Testing (Age 30 to 64) Every 5 Years 07/02/2022 07/02/2017, 12/19/2005 Cervical Cancer Screening wi th HPV 07/02/2022 COVID-19 Vaccine (2023-2 5 season) 2025 Meningococcal B Vaccine Aged Out No l onger eligible based on patient's age to complete this topic Meningococcal Vaccine Aged Out No feng adilene eligible based on patient's age to complete this topic RSV Immunizations Under 20 Months Aged Out No longer eligible b ased on patient's age to complete this topic Insurance Selleration OPEN ACCESS [facility]
--- OUTSIDE RECORDS SUMMARY | 2025-04-06 07:48 | XMS_ITS | Patient Health Record ---
Author Organization [facility] Address [address] [address] Care Team Providers Care Water And Gas Helper Name Role Phone Cindy Hughes Primary Care Provider Migration, Provider Unavailable Unavailable Allergies Allergen (clinical drug ingredient) Drug/Non Drug Allergy documented on EMR Reaction Allergy Type Onset Date Status penicillin G Penicillin G Potassium Unknown Drug Allergy Active erythromycin Erythromycin Unknown Drug Allergy A ctive Results Component Value Reference Range Notes COMPREHENSIVE METABOLIC PANE L Reviewed date:05/13/2024 08:49:12 PM Interpretation: Performing Lab:[facility], [address] [place], [address] Silvino Bermudez MD Notes/Report: FASTING:YES FASTING: YES ACTH, PLASMA Reviewed date:05/16/2024 09:11:47 AM Interpretation: Performing Lab:[facility], [address] [facility] [address], [place], [address] Eric Casillas M.D.,PhD Notes/Report: FASTING:YES FASTING: YES T3, FREE Reviewed date:05/13/2024 08:48:35 PM Interpretation: Performing Lab:[facility], [address] [place], [address] Silvino Bermudez MD Notes/Report: FASTING:YES FASTING: YES CORTISOL, TOTAL Reviewed date:05/13/2024 09:53:37 PM Interpretation: Performing Lab:[facility], [address] [place], [address] Silvino Bermudez MD Notes/Report: FASTING:YES FASTING: YES DHEA SULFATE Reviewed date:05/13/2024 09:53:55 PM Interpretation: Performing Lab:[facility], [address], [place], [address] Silvino Bermudez MD Notes/Report: FASTING:YES FASTING: YES HEMOGLOBIN A1c Reviewed date:05/13/2024 08:48:28 PM Interpretation: Performing Lab[facility], [address], [place], [address] Silvino Bermudez Notes/Report: FASTING:YES FASTING: YES CBC (INCLUDES DIFF/PLT) Reviewed date:05/13/2024 08:49:31 PM Interpretation: Performing Lab:[facility], [address], [place], [place], [address] Silvino Bermudez MD Notes/Report: FASTING:YES FASTING: YES VITAMIN B12/FOLATE, SERUM PA MARITZA Reviewed date:05/13/2024 08:48:43 PM Interpretation: Performing Lab:[facility], [address], [place], [place], [address] Silvino Bermudez MD Notes/Report: FASTING:YES FASTING: YES LIPID PANEL Reviewed date:05/13/2024 08:48:58 PM Interpretation: Performing Lab:[facility], [address], [place], [address] Silvino Bermudez MD Notes/Report: FASTING:YES FASTING: YES T4, FREE Reviewed date:05/13/2024 08:51:29 PM Interpretation: Performing Lab:[facility], [address], [place], [address] Silvino Bermudez MD Notes/Report: FASTING:YES FASTING: YES TSH Reviewed date:05/13/2024 08:48:50 PM Interpretation: Performing Lab:[facility], [address], [place], [address] Silvino Bermudez MD Notes/Report: FASTING:YES FASTING: YES MAGNESIUM, RBC Reviewed date:05/20/2024 08:17:12 PM Interpretation: Performing Lab:[facility], [address], [address], [place], [address] John Williamson MD,PhD Notes/Report: FASTING:YES FASTING: YES MAGNESIUM, RBC 8.0 4.0-6.4 mg/dL (Note) This test was developed and its analytical performance characteristics have been determined by [employer]. It has not been cleared or approved by the FDA. This assay has been validated pursuant to the CLIA regulations and is used for clinical purposes. [facility] [address] [facility] [address] John Williamson MD, PhD COMPREHENSIVE METABOLIC PANE L Reviewed date:07/15/2024 05:22:04 PM Interpretation: Performing Lab:[facility], [address], [place], [address] Silvino Bermudez MD Notes/Report: FASTING:YES FASTING: YES T3, FREE Reviewed date:07/15/2024 05:22:04 PM Interpretation: Performing Lab:[facility], [address], [place], [address] Silvino Bermudez MD Notes/Report: FASTING:YES FASTING: YES HEMOGLOBIN A1c Reviewed date:07/15/2024 05:22:04 PM Interpretation: Performing Lab:[facility], [address], [place], [address] Silvino Bermudez Notes/Report: FASTING:YES FASTING: YES INSULIN Reviewed date:07/15/2024 05:22:04 PM Interpretation: Performing Lab:[facility], [address], [place], [address] Silvino Bermudez MD Notes/Report: FASTING:YES FASTING: YES CBC (INCLUDES DIFF/PLT) Reviewed date:07/15/2024 05:22:04 PM Interpretation: Performing Lab:[facility], [address], [place], [address] Silvino Bermudez MD Notes/Report: FASTING:YES FASTING: YES VITAMIN B12/FOLATE, SERUM PA MARITZA Reviewed date:07/15/2024 05:22:04 PM Interpretation: Performing Lab:[facility], [address] [place], [address] Silvino Bermudez MD Notes/Report: FASTING:YES FASTING: YES LIPID PANEL Reviewed date:07/15/2024 05:22:04 PM Interpretation: Performing Lab:[facility], [address] [place], [address] Silvino Bermudez MD Notes/Report: FASTING:YES FASTING: YES T4, FREE Reviewed date:07/15/2024 05:22:04 PM Interpretation: Performing Lab:[facility], [address] [place], [address] Silvino Bermudez MD Notes/Report: FASTING:YES FASTING: YES TSH Reviewed date:07/15/2024 05:22:04 PM Interpretation: Performing Lab:[facility], [address] [place], [address] Silvino Bermudez MD Notes/Report: FASTING:YES FASTING: YES [...] W/U Status Risk Notes Problem Essential hypertension (00182169) Essential (primary) hypertension (I10) Active confirmed Problem Pure hyperglyceridemia (975164697) Pure hyperglyceridemia (E78.1) Active confirmed Problem Obesity (477180153) Obesity, unspecified (E66.9) Active confirmed Problem 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 Problem Autoimmune thyroiditis (15359443) Autoimmune thyroiditis (E06.3) Active confirmed Vital Signs Heart Rate 60 /min 07/19/2024 Respiratory Rate 12 /min 07/19/2024 Blood pressure diastolic 72 mm Hg 07/19/2024 Height 62 in 07/19/2024 Blood pressure systolic 132 mm Hg 07/19/2024 Weight 160 lbs 07/19/2024 BMI 29.26 kg/m2 07/19/2024 Encounters Encounter Location Date Provider Diagnosis [facility] [address] [place] [address] 05/22/2024 Provider Migration Essential (primary) hypertension I10 ; Prediabetes R73.03 and Obesity, unspecified E66.9 [facility] [employer] [address] [place] [address] 05/28/2024 Cindy [address] Thyrotoxicosis with diffuse goiter without thyrotoxic crisis or storm E05.00 ; Essential (primary) hypertension I10 and Obesity, unspecified E66.9 [facility] [employer] [address] [place] [address] 07/19/2024 Cindy Saul Essential (primary) hypertension I10 [...] Send lab work orders to patient's email ([email or web address]) and have them completed before the next appointment. Spent 25 minutes preparing to see the patient (ex review of tests/chart), obtaining and / or reviewing separately obtained history, performing a medically appropriate examination and/or evaluation, counseling and educating the patient/family/caregi alexis, ordering medications, tests, or procedures, referring and communicating with other health managed care manager, documenting clinical information in the electronic or [...] fish oil supplementation with omega-3 fatty acids [id number] is now well below prediabetes levels (5.5-5.7). Continue Zepbound and monitor blood sugar levels Encourage a well-balanced diet with fruits, veggies, and lean meats, avoiding processed foods and starches Vitamin B12 and Folic Acid LevelsLevels are within normal range. If fatigue occurs, consider a methylated B12 folic acid supplement Follow-up:Email new lab order to [email or web address] chedule follow-up appointment in 3-4 monthsCall if [...] procedures, referring and communicating with other health managed care manager, documenting clinical information in the electronic or [...] End Date [facility] [address] [place] [address] [phone] [id number] Damari Ventura Self - patient is the insured Medical (General) History Medical History History ICD Code GRAVES HYPERTHYROID Surgical History Surgery Date(Month/Year) DUSTIN 04/2023
--- OUTSIDE RECORDS SUMMARY | 2025-04-06 07:48 | XMS_ITS | Clinical Summary ---
Author Organization [facility] Address [address] [place] [address] Care Team Providers Care Traveling Phlebotomist Name Role Phone Unavailable Primary Care Provider Unavailabl e Social History Tobacco Use Types Packs/Day Years Used Date Smoking Tobacco: Never Assessed Comments Unknown Sex and Gender Information Value Date Recorded Sex Assigned at Not on file Legal Sex Female 8:35 AM TAPE TRANSFERRER Gender Identity Not on file [...] 2018 Zoster Immunization (1 of 2) 2018 Influenza Immunization (#1) 2025 SARS-COV-2 Immunization ( season) 2025 Respiratory Syncytial Virus (RSV) Immunization (Adult) [...]
--- OUTSIDE RECORDS SUMMARY | 2025-04-06 07:48 | XMS_ITS | Encounter Summary ---
Author Organization [facility] Address [address] [facility] [place] [address] Care Team Providers Care Instrument Shop Supervisor Name Role Phone Cindy Hughse MD Unavailable [phone] Elsie Wright OD Unavailable [phone] Encounter Details Date Type Department Care Team (Late Contact Info) Description 05/13/2019 Lab Requisition [facility] [address] [place] [address] Eleonora Mayes DO [address] [place] [address] [address] [place] [address] Social History Tobacco Use Types Packs/Day Years Used Date Smoking Tobacco: Never Smokeless Tobacco: Never Comments No Sex and Gender Information Value Date Recorded Sex Assigned at Not on file Legal Sex Female 11:42 AM PURSE FRAMER Gender Identity Not on file Sexual Orientation Not on file documented as of this encounter Plan of Treatment Upcoming Encounters Date Type Department Care Team (Late Contact Info) Description 09/07/2025 10:30 AM PURSE FRAMER Office Visit [facility] - Ophthalmology [address] [place] [address] Nadine Newton MD [address] [place] [address] [place] [address] documented as of this encounter Procedures Procedure Name Priority Date/Time Associated Diagnosis Comments DERMATOPATHOLOGY Routine 05/12/2019 12:0 0 AM PURSE FRAMER documented in this encounter Results * DERMATOPATHOLOGY (05/12/2019 12:00 AM PURSE FRAMER) Case Report Dermatopathology Report Case: [id number] Authorizing Provider: Eleonora Mayes DO Collected: 05/12/2019 12:00 AM Ordering Location: [facility] Lab Received: 05/13/2019 07:22 AM Pathologist: Karyn Carmona MD Specimens: A) - Skin, right cheek B) - Skin, right FA 4:04 PM [facility] DERMATOPATHOLOGY LABORATORY Final Diagnosis Specimen A. 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 B: LSC R/O NMSC. 4:04 PM [facility] DERMATOPATHOLOGY LABORATORY Gross Description Specimen A: Received is one formalin filled container labeled with the patient's name and designated right cheek. The specimen consists of a shave measuring [id number]. Jar 0. Specimen B: Received is one formalin filled container labeled with the patient's name and designated right FA. The specimen consists of a shave measuring [id number]. Jar 0. 4:04 PM [facility] DERMATOPATHOLOGY LABORATORY Microscopic Description Specimen A. SKIN, right cheek: The epidermis is eroded. There are nests of cytologically bland melanocytes within the dermis that mature with depth. Specimen B. SKIN, right FA: Sections show acanthosis, hypergranulosis, and hyperkeratosis. The papillary dermis is fibrotic. 4:04 PM [facility] DERMATOPATHOLOGY LABORATORY Disclaimer An external and internal positive and negative controls are appropriate for the histochemical, immunohistochemical and immunofluorescence stain(s) in this case (if any), except where stated explicitly. The performance characteristics of the stain(s) cited in this report were developed and its performance characteristic determined by the Dermatopathology Laboratory at [facility], directed by Dr. Phani Carmona. These tests need not be, and therefore are not, approved by the [place] Food and Drug Administration. The tests are used for clinical purposes. Billing Codes Specimen Charges Stain Charges 15754 56753 1 1 9 4:04 PM PURSE FRAMER DERMATOPATHOLOGY LABORATORY Embedded Images 9 4:04 PM [facility] DERMATOPATHOLOGY LABORATORY Pathology/Cytology TISSUE SPECIMEN FROM SKIN / Unknown 05/12/2019 05/13/2019 7:22 AM PURSE FRAMER Miscellaneous samples (specimen) TISSUE SPECIMEN FROM SKIN / Unknown 05/12/2019 05/13/2019 7:22 AM PURSE FRAMER Eleonora Mayes DO LAB - PATHOLOGY/CYTOLOGY ORDERABLES Final Result DERMATOPATHOLOGY LABORATORY [facility] - Department of Dermatology [address] [place] [address] [address] [phone] documented in this encounter Visit Diagnoses Not on filedocumented in this encounter Care Teams Instrument Shop Supervisor Relationship Specialty Start Date End Date Cindy Hughes MD [address] [place] [phone] Endocrinology 11/03/19 Elsie Wright OD [address] [place] [address] Tensile Tester 11/03/19 documented as of this encounter
--- OUTSIDE RECORDS SUMMARY | 2025-04-06 07:48 | XMS_ITS | Encounter Summary ---
Author Organization [facility] Address [address] [place] [address] Care Team Providers Care Air Defense Artillery Officer Name Role Phone Cindy Hughes MD Unavailable [phone] Elsie Wright OD Unavailable [phone] Encounter Details Date Type Department Care Team (Late Contact Info) Description 11/17/2024 Lab Requisition [facility] - [facility] Lab [address] [place] [phone] Sobia Rodriguez MD [address] [place] [address] [address] [place] [address] Social History Tobacco Use Types Packs/Day Years Used Date Smoking Tobacco: Never Smokeless Tobacco: Never Comments No Sex and Gender Information Value Date Recorded Sex Assigned at Not on file Legal Sex Female 11:42 AM TECHNICAL REPORT WRITER Gender Identity Not on file Sexual Orientation Not on file documented as of this encounter Plan of Treatment Upcoming Encounters Date Type Department Care Team (Late Contact Info) Description 09/07/2025 10:30 AM TECHNICAL REPORT WRITER Office Visit [facility] - Ophthalmology [address] [place] [phone] Nadine Newton MD [address] [place] [address] [place] [address] documented as of this encounter Procedures Procedure Name Priority Date/Time Associated Diagnosis Comments DERMATOPATHOLOGY Routine 11/17/2024 3:36 PM CDT documented in this encounter Results * DERMATOPATHOLOGY (11/17/2024 3:36 PM CDT) Case Report Dermatopathology Report Case: [id number] Authorizing Provider: Sobia Rodriguez MD Collected: 11/17/2024 03:36 PM Ordering Location: [facility] - Received: 11/18/2024 04:13 PM DermPath Lab [...] characteristic determined by the Dermatopathology Laboratory at [facility], directed by Dr. Phani Carmona. These tests need not be, and therefore are not, approved by the [place] Food and Drug Administration. The tests are used for clinical purposes. Billing Codes Specimen Charges Stain Charges 74340 [id number] 1 1 5 10:07 AM CDT DERMATOPATHOLOGY LABORATORY Embedded Images 10:07 AM CDT DERMATOPATHOLOGY LABORATORY Pathology/Cytology TISSUE SPECIMEN FROM SKIN / Unknown 11/17/2024 3:36 PM CDT 11/18/2024 4:13 PM CDT Miscellaneous samples (specimen) TISSUE SPECIMEN FROM SKIN / Unknown 11/17/2024 3:36 PM CDT 11/18/2024 4:13 PM CDT us Sobia Rodriguez MD LAB - PATHOLOGY/CYTOLOGY ORD ERABLES Final Result DERMATOPATHOLOGY LABORATORY [facility] - Department of Dermatology [facility] Medicine [address] [place] [address], [address] [phone] documented in this encounter Visit Diagnoses Not on filedocumented in this encounter Care Teams Air Defense Artillery Officer Relationship Specialty Start Date End Date Cindy Hughes MD [address] [place] [address] Endocrinology 11/03/19 Elsie Wright OD [address] [place] [address] Data Base Administrator 11/03/19 documented as of this encounter
--- OUTSIDE RECORDS SUMMARY | 2025-04-06 07:48 | XMS_ITS | Encounter Summary ---
Author Organization [facility] Address [address] [place] [address] Care Team Providers Care Home Energy Rater Name Role Phone Cindy Hughes MD Unavailable [phone] Elsie Wright OD Unavailable [phone] Encounter Details Date Type Department Care Team (Late Contact Info) Description 04/28/2023 Lab Requisition [facility] [address] [place] [phone] Sobia Rodriguez MD [address] [place] [address] 3 [place] [address] Social History Tobacco Use Types Packs/Day Years Used Date Smoking Tobacco: Never Smokeless Tobacco: Never Comments No Sex and Gender Information Value Date Recorded Sex Assigned at Not on file Legal Sex Female 11:42 AM OPTICIAN Gender Identity Not on file Sexual Orientation Not on file documented as of this encounter Plan of Treatment Upcoming Encounters Date Type Department Care Team ([facility] Contact Info) Description 09/07/2025 10:30 AM OPTICIAN Office Visit [facility] - Ophthalmology [address] [place] [phone] Nadine Newton MD [address] [place] [address] [place] [address] [phone] (work) documented as of this encounter Procedures Procedure Name Priority Date/Time Associated Diagnosis Comments DERMATOPATHOLOGY Routine 04/28/2023 3:02 PM CDT documented in this encounter Results * DERMATOPATHOLOGY (04/28/2023 3:02 PM CDT) Case Report Dermatopathology Report Case: [id number] Authorizing Provider: Sobia Rodriguez MD Collected: 04/28/2023 03:02 PM Ordering Location: [facility] Received: 04/29/2023 11:39 AM Pathologist: [...] characteristic determined by the Dermatopathology Laboratory at [facility], directed by Dr. Phani Carmona. These tests need not be, and therefore are not, approved by the [place] Food and Drug Administration. The tests are used for clinical purposes. Billing Codes Specimen Charges Stain Charges 66938 1 29299 1 3 8:42 AM CDT DERMATOPATHOLOGY LABORATORY Embedded Images 3 8:42 AM CDT DERMATOPATHOLOGY LABORATORY Pathology/Cytolo gy TISSUE SPECIMEN FROM SKIN / Unknown 04/28/2023 3:02 PM CDT 04/29/2023 11:39 AM CDT Sobia Rodriguez MD LAB - PATHOLOGY/CYTOLOGY ORD ERABLES Final Result DERMATOPATHOLOGY LABORATORY [facility] - Department of Dermatology [facility] Medicine [address] [place] [address], [address] Floor [address] [phone] documented in this encounter Visit Diagnoses Not on filedocumented in this encounter Care Teams Home Energy Rater Relationship Specialty Start Date End Date Cindy Hughes MD [address] [place] [address] Endocrinology 11/03/19 Elsie Wright OD [address] [place] [address] Truck Washer 11/03/19 documented as of this encounter
--- OUTSIDE RECORDS SUMMARY | 2025-04-06 07:48 | XMS_ITS | Encounter Summary ---
Author Organization [facility] Address [address] [place] [address] Care Team Providers Care Metal Bonding Worker Name Role Phone Cindy Hughes MD Unavailable [phone] Elsie Wright OD Unavailable [phone] Encounter Details Date Type Department Care Team (Late Contact Info) Description 05/19/2023 Lab Requisition [facility] [address] [place] [phone] Magui Marmolejo MD [address] [place] [address] Social History Tobacco Use Types Packs/Day Years Used Date Smoking Tobacco: Never Smokeless Tobacco: Never Comments No Sex and Gender Information Value Date Recorded Sex Assigned at Not on file Legal Sex Female 11:42 AM CASINO BANKER Gender Identity Not on file Sexual Orientation Not on file documented as of this encounter Plan of Treatment Upcoming Encounters Date Type Department Care Team (Late Contact Info) Description 09/07/2025 10:30 AM CASINO BANKER Office Visit [facility] - Ophthalmology [address] [place] [phone] Nadine Newton MD [address] [place] [address] [place] [address] [phone] (work) documented as of this encounter Procedures Procedure Name Priority Date/Time Associated Diagnosis Comments DERMATOPATHOLOGY Routine 05/19/2023 4:15 PM CASINO BANKER documented in this encounter Results * DERMATOPATHOLOGY (05/19/2023 4:15 PM CASINO BANKER) Case Report Dermatopathology Report Case: [id number] Authorizing Provider: Magui Marmolejo MD Collected: 05/19/2023 04:15 PM Ordering Location: [facility] DermPath Lab Received: 05/20/2023 03:29 PM Pathologist: Evelia Ragland MD Specimen: Skin, right lateral cheek 3 4:06 PM [facility] DERMATOPATHOLOGY LABORATORY Final Diagnosis Specimen A. 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 Jar 0. 3 4:06 PM [facility] DERMATOPATHOLOGY LABORATORY Microscopic Description Specimen A. SKIN, [...] to the skin surface. 3 4:06 PM CASINO BANKER DERMATOPATHOLOGY LABORATORY Disclaimer An external and internal positive and negative controls are appropriate for the histochemical, immunohistochemical and immunofluorescence stain(s) in this case (if any), except where stated explicitly. The performance characteristics of the stain(s) cited in this report were developed and its performance characteristic determined by the Dermatopathology Laboratory at [facility], directed by Dr. Phani Carmona. These tests need not be, and therefore are not, approved by the [place] Food and Drug Administration. The tests are used for clinical purposes. Billing Codes Specimen Charges Stain Charges 80733 1 83708 56498 1 1 3 4:06 PM CASINO BANKER DERMATOPATHOLOGY LABORATORY Embedded Images 3 4:06 PM CASINO BANKER DERMATOPATHOLOGY LABORATORY Pathology/Cytolo gy TISSUE SPECIMEN FROM SKIN / Unknown 05/19/2023 4:15 PM CASINO BANKER 05/20/2023 3:29 PM CASINO BANKER Magui Marmolejo MD LAB - PATHOLOGY/CYTOLOGY ORDERA BLES Final Result DERMATOPATHOLOGY LABORATORY [facility] - Department of Dermatology [facility] Specialized Medicine [address] [place] [address], [address] Floor [address] [phone] documented in this encounter Visit Diagnoses Not on filedocumented in this encounter Care Teams Metal Bonding Worker Relationship Specialty Start Date End Date Cindy Hughes MD [address] [place] [address] Endocrinology 11/03/19 Elsie Wright OD [address] [place] [address] Production Team Manager 11/03/19 documented as of this encounter
--- OUTSIDE RECORDS SUMMARY | 2025-04-06 07:48 | XMS_ITS | Encounter Summary ---
Author Organization [facility] Address [address] [place] [address] Care Team Providers Care Account Leader Name Role Phone Cindy Hughes MD Unavailable [phone] Elsie Wright OD Unavailable [phone] Encounter Details Date Type Department Care Team (Late Contact Info) Description 11/13/2023 Lab Requisition [facility] [address] [place] [phone] Sobia Rodriguez MD [address] [place] [address] 3 [place] [address] Social History Tobacco Use Types Packs/Day Years Used Date Smoking Tobacco: Never Smokeless Tobacco: Never Comments No Sex and Gender Information Value Date Recorded Sex Assigned at Not on file Legal Sex Female 11:42 AM JUKEBOX ROUTEMAN Gender Identity Not on file Sexual Orientation Not on file documented as of this encounter Plan of Treatment Upcoming Encounters Date Type Department Care Team (Late Contact Info) Description 09/07/2025 10:30 AM JUKEBOX ROUTEMAN Office Visit [facility] Op[facility]mology [address] [place] [phone] Nadine Newton MD [address] [place] [address] DEPT [place] [phone] documented as of this encounter Procedures Procedure Name Priority Date/Time Associated Diagnosis Comments DERMATOPATHOLOGY Routine 11/13/2023 10:3 9 AM CDT documented in this encounter Results * DERMATOPATHOLOGY (11/13/2023 10:39 AM CDT) Case Report Dermatopathology Report Case: [id number] Authorizing Provider: Sobia Rodriguez MD Collected: 11/13/2023 10:39 AM Ordering Location: [facility] - Received: 11/14/2023 09:56 AM DermPath Lab Pathologist: Zuleika Aguero MD Specimen: Skin, right cheek anterior 4:03 PM CDT DERMATOPATHOLOGY LABORATORY Final Diagnosis Specimen A. 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 Phani Carmona. These tests need not be, and therefore are not, approved by the [place] Food and Drug Administration. The tests are used for clinical purposes. Billing Codes Specimen Charges Stain Charges 99370 1 01545 02507 1 1 4 4:03 PM CDT DERMATOPATHOLOGY LABORATORY Embedded Images 4 4:03 PM CDT DERMATOPATHOLOGY LABORATORY Pathology/Cytolo gy TISSUE SPECIMEN FROM SKIN / Unknown 11/13/2023 10:39 AM CDT 11/14/2023 9:56 AM CDT Sobia Rodriguez MD LAB - PATHOLOGY/CYTOLOGY ORD ERABLES Final Result DERMATOPATHOLOGY LABORATORY [facility] - Department of Dermatology [facility] Medicine [address] [place] [address], [address]rd Floor [address] [phone] documented in this encounter Visit Diagnoses Not on filedocumented in this encounter Care Teams Account Leader Relationship Specialty Start Date End Date Cindy Hughes MD [address] [place] [address] Endocrinology 11/03/19 Elsie Wright OD 4 [place] [address] Veterinary Surgery Technologist 11/03/19 documented as of this encounter
== END 2025-04-06 07:41 | disposition home or self-care (01) ==
PROVIDERS: PCP Physician Assistant; Visit Provider Physician Assistant
DX: R10.11 Right upper quadrant pain (principal)
CPT/HCPCS: 78227; A9537; J2805

== ENCOUNTER 2025-05-13 11:14 | Outpatient (CLI) | payer OTHER, SELFPAY ==
--- OUTSIDE RECORDS SUMMARY | 2024-05-22 15:00 | XMS_ITS ---
Author Organization [facility] Address [address] [place], [place] [address] Care Team Providers Care Crm Analyst Name Role Phone Cindy Hughes Unavailable [phone] Migration, Provider Unavailable Unavailable Allergies Allergen (clinical drug ingredient) Drug/Non Drug Allergy documented on EMR Reaction Allergy Type Onset Date Status erythromycin Erythromycin Unknown Drug Allergy A ctive penicillin G Penicillin G Potassium Unknown Drug Allergy [facility] Encounter Medications Medication SIG (Take, Route, Frequency, Duration) Notes Start Date End Date Status dexAMETHasone 1 MG Tablet 1 tab(s) orall y at 10 pm night before 8 am cortisol; Duration: 1 days 03/22/2024 Activ e Zepbound 5 MG/0.5ML Solution inject 5 mg subcutaneously once a week; Duration: days 03/22/2024 Active Zepbound 2.5 MG/0.5ML Solution inject 2.5 mg subcutaneously once a week; Duration: 30 days 03/22/2024 Active methIMAzole 5 MG Tablet 1 tab(s) orally daily; Duration: 90 days 12/11/2023 Active Losartan Potassium 25 MG Tablet 1 tab(s) orally once a day; Duration: 90 days 12/11/2023 Active metFORMIN HCl ER 500 MG Tablet Extended Release 24 Hour 1 tab(s) orally once a day with dinner; Duration: 90 days 03/22/2024 Active Losartan Potassium 50 MG Tablet 1 tab(s) orally once a day; Duration: 90 days 03/22/2024 Active Encounters Encounter Location Date Provider Diagnosis [address] [id number] 05/22/2024 Provider Migration Essential (primary) hypertension I10 ; Prediabetes R73.03 and Obesity, unspecified E66.9 Assessments Encounter Date Diagnosis (ICD Code) Assessment Notes Treatment Notes Treatment Clinical Notes Section Notes 05/22/2024 Essential (primary) hypertension (ICD-10 - I10) 05/22/2024 Prediabetes (ICD-10 - R73.03) 05/22/2024 Obesity, unspecified (ICD-10 - E66.9) Plan Of Treatment Medication Medication Name Sig Start Date Stop Date Notes dexAMETHasone 1 MG Tablet 1 tab(s) orall y at 10 pm night before 8 am cortisol; Duration: 1 days 03/22/2024 Zepbound 5 MG/0.5ML Solution inject 5 mg subcutaneously once a week; Duration: 90 days 03/22/2024 Zepbound 2.5 MG/0.5ML Solution inject 2.5 mg subcutaneously once a week; Duration: 30 days 03/22/2024 metFORMIN HCl ER 500 MG Tablet Extended Release 24 Hour 1 tab(s) orally once a day with dinner; Duration: 90 days 03/22/2024 Losartan Potassium 50 MG Tablet 1 tab(s) orally once a day; Duration: 90 days 03/22/2024 Progress Notes * Arlene OWENSB: 969 (54 yo F)Acc No.[id number]:05/22/2024 Patient: Elijah Damari duque Provider: Brooke Bhatti :1970 A ge:53 Y S ex:Female Date:05/22/2024 Phone: Address:[address] [place], [place] [phone] Subjective: * Chief Complaints: * M tum To [facility] Conversion Encounter * Medications: T akingmethIMAzole 5 MG Tablet 1 tab(s) orally daily Losartan Potassium 25 MG Tablet 1 tab(s) orally once a day Taking methIMAzole 5 MG Tablet 1 tab(s) orally daily Taking Losartan Potassium 25 MG Tablet 1 tab(s) orally once a day * Allergies: P enicillin G PotassiumErythromycin Assessment: * Assessment: 1. E ssential (primary) hypertension - I10 (Primary) 2 . P rediabetes - R73.03 3 . O besity, unspecified - E66.9 Plan: * Treatment: 2. P rediabetes Start metFORMIN HCl ER Tablet Extended Release 24 Hour, 500 MG, 1 tab(s), orally, once a day with dinner, 90 days, 90, Refills 1. 3. O besity, unspecified Start Zepbound Solution, 2.5 MG/0.5ML, inject 2.5 mg, subcutaneously, once a week, 30 days, 4, Refills 0; S tart Zepbound Solution, 5 MG/0.5ML, inject 5 mg, subcutaneously, once a week, 90 days, 12, Refills 1; S tart dexAMETHasone Tablet, 1 MG, 1 tab(s), orally, at 10 pm night before 8 am cortisol, 1 days, 1, Refills 1. * Electronic signature of Prov ider Migration on 05/13/2025 at 12:01 PM CLAY CARMAN Sign off status: Pending * Provider: Brooke brown Migration Date: 07/22/2023 Generated for Moiz greer/Anselmo/Korin on: 07/13/2024 12:01 PM CLAY CARMAN
--- OUTSIDE RECORDS SUMMARY | 2024-05-22 15:00 | XMS_ITS ---
Author Organization [employer] [facility] Address [address] [address] Care Team Providers Care Child Care Supervisor Name Role Phone Cindy Hughes Primary Care Provider Migration, Provider Unavailable Unavailable Allergies Allergen (clinical drug ingredient) Drug/Non Drug Allergy documented on EMR Reaction Allergy Type Onset Date Status penicillin G Penicillin G Potassium Unknown Drug Allergy Active erythromycin Erythromycin Unknown Drug Allergy A ctive REASON FOR VISIT [facility] To [place] Conversion Encounter Medications Medication SIG (Take, Route, Frequency, Duration) Notes Start Date End Date Status methIMAzole 5 MG 1 tab(s) orally yoni y; Duration: 90 days 12/11/2023 Active metFORMIN HCl ER 500 MG 1 tab(s) orally once a day with dinner; Duration: 90 days 03/22/2024 Active Zepbound 2.5 MG/0.5ML inject 2.5 mg subcutaneously once a week; Duration: 30 days 03/22/2024 Active Zepbound 5 MG/0.5ML inject 5 mg subcutan eously once a week; Duration: 90 days 03/22/2024 Active dexAMETHasone 1 MG 1 tab(s) orally at 1 0 pm night before 8 am cortisol; Duration: 1 days 03/22/2024 Active Losartan Potassium 25 MG 1 tab(s) orally once a day; Duration: 90 days 12/11/2023 Active Losartan Potassium 50 MG 1 tab(s) orally once a day; Duration: 90 days 03/22/2024 Active Encounters Encounter Location Date [facility] [address] [address] [facility]/22/2024 Provider Migration Essential (primary) hypertension I10 ; Prediabetes R73.03 and Obesity, unspecified E66.9 Assessments Encounter Date Diagnosis (ICD Code) Assessment Notes Treatment Notes Treatment Clinical Notes Section Notes 05/22/2024 Essential (primary) hypertension (ICD-10 - I10) 05/22/2024 Prediabetes (ICD-10 - R73.03) 05/22/2024 Obesity, unspecified (ICD-10 - E66.9) Plan Of Treatment Medication Medication Name Sig Start Date Stop Date Notes metFORMIN HCl ER 500 MG 1 tab(s) orally once a day with dinner; Duration: 90 days 03/22/2024 Zepbound 2.5 MG/0.5ML inject 2.5 mg subc utaneously once a week; Duration: 30 days 03/22/2024 Zepbound 5 MG/0.5ML inject 5 mg subcutan eously once a week; Duration: 90 days 03/22/2024 dexAMETHasone 1 MG 1 tab(s) orally at 1 0 pm night before 8 am cortisol; Duration: 1 days 03/22/2024 Losartan Potassium 50 MG 1 tab(s) orally once a day; Duration: 90 days 03/22/2024 Progress Notes * Arlene OWENSB: 969 (54 yo F)Acc No.[id number]:05/22/2024 Patient: Katherine DAVEYa Provider: Brooke Bhatti :1970 A ge:53 Y S ex:Female Date:05/22/2024 Phone: Address:[address] [place] [address] Pcp:Cindy Hughes Subjective: * Chief Complaints: * [facility] . [facility] [place] En[facility]. * Medical History: * Medications: T aking methIMAzole 5 MG Tablet 1 tab(s) orally daily , Taking Losartan Potassium 25 MG Tablet 1 tab(s) orally once a day * Allergies: P enicillin G Potassium, Erythromycin. Objective: * Vitals: Assessment: * Assessment: 1. E ssential (primary) [...] cortisol, 1 days, 1, Refills 1. * Billing Information: * Visit Code: * Procedure Codes: * Electronic signature of Prov ider Migration on 05/13/2025 at 12:00 PM REPRODUCTION ORDER PROCESSOR Sign off status: Pending * Provider: Brooke brown Migration Date: 07/22/2023 Generated for Moiz greer/Anselmo/Korin on: 07/13/2024 12:00 PM REPRODUCTION ORDER PROCESSOR
--- NOTE | 2025-05-13 11:33 | ECG_ITS ---
Test Date: 2025-05-13 11:45:56 Measurements Intervals [place] Rate: 73 P: 64 AL: 146 QRS: 66 QRSD: 98 T: 59 QT: 388 QTc: 430 Interpretive Statements SINUS RHYTHM Electronically Signed On 05-13-2025 12:44:27 CHIEF AIRLINE RADIO OPERATOR by Michael Marie D.O
--- OUTSIDE RECORDS SUMMARY | 2025-05-13 12:00 | XMS_ITS | Encounter Summary ---
Author Organization [facility] Address [address] [facility] [place] [address] Care Team Providers Care Stepdown Nurse Name Role Phone Cindy Hughes MD Unavailable [phone] Elsie Wright OD Unavailable [phone] Encounter Details Date Type Department Care Team (Late Contact Info) Description 11/17/2024 Lab Requisition [facility] [address] [place] [phone] Sobia Rodriguez MD [address] [place] [address] 3 [place] [address] Social History Tobacco Use Types Packs/Day Years Used Date Smoking Tobacco: Never Smokeless Tobacco: Never Comments No Sex and Gender Information Value Date Recorded Sex Assigned at Not on file Legal Sex Female 11:42 AM MANGLE TENDER CLOTH Gender Identity Not on file Sexual Orientation Not on file documented as of this encounter Plan of Treatment Upcoming Encounters Date Type Department Care Team (Late Contact Info) Description 09/07/2025 10:30 AM MANGLE TENDER CLOTH Office Visit [facility] - Ophthalmology [address] [place] [phone] Nadine Newton MD [address] [place] [address] [place] [address] documented as of this encounter Procedures Procedure Name Priority Date/Time Associated Diagnosis Comments DERMATOPATHOLOGY Routine 11/17/2024 3:36 PM CDT documented in this encounter Results * DERMATOPATHOLOGY (11/17/2024 3:36 PM CDT) Case Report Dermatopathology Report Case: [id number] Authorizing Provider: Sobia Rodriguez MD Collected: 11/17/2024 03:36 PM Ordering Location: [facility] - Received: 11/18/2024 04:13 PM DermPath Lab [...] purposes. Billing Codes Specimen Charges Stain Charges 11754 31307 1 1 5 10:07 AM CDT DERMATOPATHOLOGY LABORATORY Embedded Images 10:07 AM CDT DERMATOPATHOLOGY LABORATORY Pathology/Cytology TISSUE SPECIMEN FROM SKIN / Unknown 11/17/2024 3:36 PM CDT 11/18/2024 4:13 PM CDT Miscellaneous samples (specimen) TISSUE SPECIMEN FROM SKIN / Unknown 11/17/2024 3:36 PM CDT 11/18/2024 4:13 PM CDT us Sobia Rodriguez MD LAB - PATHOLOGY/CYTOLOGY ORD ERABLES Final Result DERMATOPATHOLOGY LABORATORY [facility] - Department of Dermatology [facility] Medicine [address] [place] [address], [address] [phone] documented in this encounter Visit Diagnoses Not on filedocumented in this encounter Care Teams Stepdown Nurse Relationship Specialty Start Date End Date Cindy Hughes MD [address] [place] [address] Endocrinology 11/03/19 Elsie Wright OD [address] [place] [address] Clockmaker Apprentice 11/03/19 documented as of this encounter
--- OUTSIDE RECORDS SUMMARY | 2025-05-13 12:00 | XMS_ITS | Clinical Summary ---
Author Organization [facility] Address [address] [place] [address] Care Team Providers Care Anchor Tacker Name Role Phone Cindy Hughes MD Unavailable [phone] Elsie Wright OD Unavailable [phone] Source Comments [facility],non-owned Affiliates and Associated Physician Practices is amultiple site organization consisting of ambulatory clinics and hospital sitesin [place] and [place]. This disclosure is being madepursuant to the Care Everywhere program and may not contain all information available regarding this patient. Last updated 18.[facility] Allergies Active Allergy Reactions Criticality Noted Date [...] Active Cholecalcifero l (VITAMIN D3) 1.25 MG (93390 UT) capsule vitamin D3 2,000 unit-folic acid [...] on file Legal Sex Female 11:42 AM DONOR FLOOR TECHNICIAN Gender Identity Not on file Sexual Orientation [...] st Contact Info) Description 09/07/2025 10:30 AM DONOR FLOOR TECHNICIAN Office Visit [facility] - Ophthalmology [address] [place] [address] Nadine Newton MD [address] [place] [address] Health Maintenance Due Date Last [...] patient's age to complete this topic Insurance [employer] Care Teams Anchor Tacker Relationship Specialty Start Date End Date Cindy Hughes MD [address] [place] [address] Endocrinology 11/03/19 Elsie Wright OD [address] [place] [address] Technology Integration Specialist 11/03/19
--- OUTSIDE RECORDS SUMMARY | 2025-05-13 12:00 | XMS_ITS | Clinical Summary ---
Author Organization [facility] Address [address] [place] [address] Care Team Providers Care Healthcare Business Analyst Name Role Phone Kelsie Krause Primary Care [...] on file Legal Sex Female 10:17 AM SCHOOL SERVICES OFFICER Gender Identity Not on file Sexual Orientation Not on file Last Filed Vital Signs Vital Sign Reading Time Taken Comments Blood Pressure 134/86 08/12/2017 1:30 PM SCHOOL SERVICES OFFICER Pulse 75 08/12/2017 1:30 PM SCHOOL SERVICES OFFICER Temperature - - Respiratory Rate - - Oxygen Saturation 97% 08/12/2017 1:30 PM SCHOOL SERVICES OFFICER Inhaled Oxygen Concentration - - Weight 66.2 [...] Influenza Vaccine (#1) 2025 04/06/2013, 2008 Insurance [employer] [facility] [place] [address] [place] [id number] [facility] [id number] Care Teams Healthcare Business Analyst Relationship Specialty Start Date End Date Kelsie Krause PA PCP - General Physician Cmm Inspector 05/29/20
--- OUTSIDE RECORDS SUMMARY | 2025-05-13 12:00 | XMS_ITS | Clinical Summary ---
Author Organization [facility] Address [address] [place] [address] Care Team Providers Care Bean Picker Name Role Phone Unavailable Primary Care Provider [...] 07/02/2022 07/02/2017, 12/19/2005 Cervical Cancer Screening wi HPV 07/02/2022 COVID-19 Vaccine (2024-2 6 season) 2025 Influenza Adult (#1) 2025 04/06/2013, 03/03/2009, Hepatitis A Vaccines Aged Out No long er eligible based on patient's age to complete this topic Meningococcal B Vaccine Aged Out No l onger eligible based on patient's age to complete this topic Meningococcal Vaccine Aged Out No feng adilene eligible based on patient's age to complete this topic RSV Immunizations Under 20 Months Aged Out No longer eligible b ased on patient's age to complete this topic Insurance [employer] [facility]
--- OUTSIDE RECORDS SUMMARY | 2025-05-13 12:01 | XMS_ITS | Encounter Summary ---
Author Organization [facility] Address [address] [place] [address] Care Team Providers Care Associate Project Manager Name Role Phone Cindy Hughes MD Unavailable [phone] Elsie Wright OD Unavailable [phone] Encounter Details Date Type Department Care Team (Late Contact Info) Description 05/13/2019 Lab Requisition [facility] [address] [place] [phone] Eleonora Mayes DO [address] [place] [address] 3 [place] [address] Social History Tobacco Use Types Packs/Day Years Used Date Smoking Tobacco: Never Smokeless Tobacco: Never Comments No Sex and Gender Information Value Date Recorded Sex Assigned at Not on file Legal Sex Female 11:42 AM MACHINE GRINDER Gender Identity Not on file Sexual Orientation Not on file documented as of this encounter Plan of Treatment Upcoming Encounters Date Type Department Care Team (Late Contact Info) Description 09/07/2025 10:30 AM MACHINE GRINDER Office Visit [facility] - Ophthalmology [address] [place] [phone] Nadine Newton MD [address] [place] [address] [place] [phone] documented as of this encounter Procedures Procedure Name Priority Date/Time Associated Diagnosis Comments DERMATOPATHOLOGY Routine 05/12/2019 12:0 0 AM MACHINE GRINDER documented in this encounter Results * DERMATOPATHOLOGY (05/12/2019 12:00 AM MACHINE GRINDER) Case Report Dermatopathology Report Case: [id number] Authorizing Provider: Eleonora Mayes DO Collected: 05/12/2019 12:00 AM Ordering Location: [facility] DermPath Lab Received: 05/13/2019 07:22 AM Pathologist: Karyn Cramona MD Specimens: A) - Skin, right cheek B) - Skin, right FA 4:04 PM [facility] DERMATOPATHOLOGY LABORATORY Final Diagnosis Specimen A. 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 B: LSC R/O NMSC. 4:04 PM [facility] DERMATOPATHOLOGY LABORATORY Gross Description Specimen A: Received is one formalin filled container labeled with the patient's name and designated right cheek. The specimen consists of a shave measuring [id number]. Jar 0. Specimen B: Received is one formalin filled container labeled with the patient's name and designated right FA. The specimen consists of a shave measuring [id number]. Jar 0. 4:04 PM [facility] [...] characteristic determined by the Dermatopathology Laboratory at [facility], directed by Dr. Phani Carmona. These tests need not be, and therefore are not, approved by the [place] Food and Drug Administration. The tests are used for clinical purposes. Billing Codes Specimen Charges Stain Charges 17041 94202 1 1 9 4:04 PM MACHINE GRINDER DERMATOPATHOLOGY LABORATORY Embedded Images 9 4:04 PM MACHINE GRINDER DERMATOPATHOLOGY LABORATORY Pathology/Cytology TISSUE SPECIMEN FROM SKIN / Unknown 05/12/2019 05/13/2019 7:22 AM MACHINE GRINDER Miscellaneous samples (specimen) TISSUE SPECIMEN FROM SKIN / Unknown 05/12/2019 05/13/2019 7:22 AM MACHINE GRINDER Eleonora Mayes DO LAB - PATHOLOGY/CYTOLOGY ORDERABLES Final Result DERMATOPATHOLOGY LABORATORY [facility] - Department of Dermatology [address] [place] [address] [address] [phone] documented in this encounter Visit Diagnoses Not on filedocumented in this encounter Care Teams Associate Project Manager Relationship Specialty Start Date End Date Cindy Hughes MD [address] [place] [address] [place] [phone] Endocrinology 11/03/19 Elsie Wright OD [address] [place] [address] Ornament Setter 11/03/19 documented as of this encounter
--- OUTSIDE RECORDS SUMMARY | 2025-05-13 12:01 | XMS_ITS | Clinical Summary ---
Author Organization [facility] Address [address] [place] [address] Care Team Providers Care Watch Assembler Name Role Phone Unavailable Primary Care Provider Unavailabl e Social History Tobacco Use Types Packs/Day Years Used Date Smoking Tobacco: Never Assessed Comments Unknown Sex and Gender Information Value Date Recorded Sex Assigned at Not on file Legal Sex Female 8:35 AM BELLHOP Gender Identity Not on file Sexual Orientation [...]
--- OUTSIDE RECORDS SUMMARY | 2025-05-13 12:01 | XMS_ITS | Patient Health Record ---
Author Organization [employer] [facility] Address [address] [address] Care Team Providers Care University Lecturer Name Role Phone Cindy Hughes Primary Care Provider Migration, Provider Unavailable Unavailable Allergies Allergen (clinical drug ingredient) Drug/Non Drug Allergy documented on EMR Reaction Allergy Type Onset Date Status penicillin G Penicillin G Potassium Unknown Drug Allergy Active erythromycin Erythromycin Unknown Drug Allergy A ctive Results Component Value Reference Range Notes COMPREHENSIVE METABOLIC PANE L Reviewed date:07/15/2024 05:22:04 PM Interpretation: Performing Lab:[facility], [place], [address] Silvino Berumdez MD Notes/Report: FASTING:YES FASTING: YES T3, FREE Reviewed date:07/15/2024 05:22:04 PM Interpretation: Performing Lab:[facility], [place], [address] Silvino Bermudez MD Notes/Report: FASTING:YES FASTING: YES HEMOGLOBIN A1c Reviewed date:07/15/2024 05:22:04 PM Interpretation: Performing Lab:[facility], [address], [place], [address] Silvino Bermudez Notes/Report: FASTING:YES FASTING: YES INSULIN Reviewed date:07/15/2024 05:22:04 PM Interpretation: Performing Lab:[facility], [address] [place], [address] Silvino Bermudez MD Notes/Report: FASTING:YES FASTING: YES CBC (INCLUDES DIFF/PLT) Reviewed date:07/15/2024 05:22:04 PM Interpretation: Performing Lab:[facility], [address], [place], [place], [address] Silvino Bermudez MD Notes/Report: FASTING:YES FASTING: YES VITAMIN B12/FOLATE, SERUM PA MARITZA Reviewed date:07/15/2024 05:22:04 PM Interpretation: Performing Lab:[facility], [address], [place], [address] Silvino Bermudez MD Notes/Report: FASTING:YES FASTING: YES LIPID PANEL Reviewed date:07/15/2024 05:22:04 PM Interpretation: Performing Lab:[facility], [address], [place], [address] Silvino Bermudez MD Notes/Report: FASTING:YES FASTING: YES T4, FREE Reviewed date:07/15/2024 05:22:04 PM Interpretation: Performing Lab:[facility], [address], [place], [address] Silvino Bermudez MD Notes/Report: FASTING:YES FASTING: YES TSH Reviewed date:07/15/2024 05:22:04 PM Interpretation: Performing Lab:[facility], [address], [place], [address] Silvino Bermudez MD Notes/Report: FASTING:YES FASTING: YES Reason For Referral No Information Medications Medication SIG (Take, Route, Fr equency, Duration) Notes Start Date End Date Status Losartan Potassium 50 MG 1 tab(s) orally once a day; Duration: 90 days 03/22/2024 Active Zepbound 5 MG/0.5ML inject 5 mg subcutan eously once a week; Duration: 90 days 03/22/2024 Active Problems Problem Type SNOMED Code ICD Code Onset Dates Problem Status W/U Status Risk Notes Problem Essential hypertension (98755891) Essential (primary) hypertension (I10) Active confirmed Problem Pure hyperglyceridemia (023413277) Pure hyperglyceridemia (E78.1) Active confirmed Problem Obesity (831232771) Obesity, unspecified (E66.9) Active confirmed Problem 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 Problem Autoimmune thyroiditis (99565393) Autoimmune thyroiditis (E06.3) Active confirmed Vital Signs Heart Rate 60 /min 07/19/2024 Respiratory Rate 12 /min 07/19/2024 Blood pressure diastolic 72 mm Hg 07/19/2024 Height 62 in 07/19/2024 Blood pressure systolic 132 mm Hg 07/19/2024 Weight 160 lbs 07/19/2024 BMI 29.26 kg/m2 07/19/2024 Encounters Encounter Location Date Provider Diagnosis [address] [address] 05/22/2024 Provider Migration Essential (primary) hypertension I10 ; Prediabetes R73.03 and Obesity, unspecified E66.9 [employer] [address] [place] [address] 05/28/2024 [facility] Thyrotoxicosis with diffuse goiter without thyrotoxic crisis or storm E05.00 ; Essential (primary) hypertension I10 and Obesity, unspecified E66.9 [employer] [facility] [address] [place] [address] 07/19/2024 [facility] Essential (primary) hypertension I10 ; Obesity, unspecified E66.9 ; Dietary counseling and surveillance Z71.3 ; Pure hyperglyceridemia E78.1 and Autoimmune thyroiditis E06.3 [facility] [address] [place] [address] 05/10/2025 Cindy BugHerd Assessments Encounter Date Diagnosis (ICD Code) Assessment [...] Send lab work orders to patient's email ([email or web address]) and have them completed before the next appointment. Spent 25 minutes preparing to see the patient (ex review of tests/chart), obtaining and / or reviewing separately obtained history, performing a medically appropriate examination and/or evaluation, counseling and educating the patient/family/caregi alexis, ordering medications, tests, or procedures, referring and communicating with other health care management associate, documenting clinical information in the electronic or [...] fish oil supplementation with omega-3 fatty acids [id number] is now well below prediabetes levels (5.5-5.7). Continue Zepbound and monitor blood sugar levels Encourage a well-balanced diet with fruits, veggies, and lean meats, avoiding processed foods and starches Vitamin B12 and Folic Acid LevelsLevels are within normal range. If fatigue occurs, consider a methylated B12 folic acid supplement Follow-up:Email new lab order to [email or web address] [email or web address] follow-up appointment in 3-4 monthsCall if [...] referring and communicating with other health care management associate, documenting clinical information in the electronic or [...] End Date [employer] [address] [place] [id number] Damari Ventura Self - patient is the insured Medical (General) History Medical History History ICD Code GRAVES HYPERTHYROID Surgical History Surgery Date(Month/Year) DUSTIN 04/2023
--- OUTSIDE RECORDS SUMMARY | 2025-05-13 12:01 | XMS_ITS | Encounter Summary ---
Author Organization [facility] Address [address] [place] [address] Care Team Providers Care Claims Vice President Name Role Phone Cindy Hughes MD Unavailable [phone] Elsie Wright OD Unavailable [phone] Encounter Details Date Type Department Care Team (Late Contact Info) Description 11/13/2023 Lab Requisition [facility] Lab [address] [place] [phone] Sobia Rodriguez MD [address] [place] [address] 3 [place] [address] Social History Tobacco Use Types Packs/Day Years Used Date Smoking Tobacco: Never Smokeless Tobacco: Never Comments No Sex and Gender Information Value Date Recorded Sex Assigned at Not on file Legal Sex Female 11:42 AM CARD CLEANER Gender Identity Not on file Sexual Orientation Not on file documented as of this encounter Plan of Treatment Upcoming Encounters Date Type Department Care Team (Late Contact Info) Description 09/07/2025 10:30 AM CARD CLEANER Office Visit [facility] - Ophthalmology [address] [place] [phone] Nadine Newton MD [address] [place] [address] [place] [phone] documented as of this encounter Procedures Procedure Name Priority Date/Time Associated Diagnosis Comments DERMATOPATHOLOGY Routine 11/13/2023 10:3 9 AM CDT documented in this encounter Results * DERMATOPATHOLOGY (11/13/2023 10:39 AM CDT) Case Report Dermatopathology Report Case: [id number] Authorizing Provider: Sobia Rodriguez MD Collected: 11/13/2023 10:39 AM Ordering Location: [facility] - Received: 11/14/2023 09:56 AM DermPath Lab Pathologist: Zuleika Aguero MD Specimen: Skin, right cheek anterior 4:03 PM CDT DERMATOPATHOLOGY LABORATORY Final Diagnosis Specimen A. SKIN, right cheek anterior: INTRADERMAL MELANOCYTIC NEVUS (D22.39) PRURIGO NODULARIS, ERODED (L28.1) 4:03 PM CDT DERMATOPATHOLOGY LABORATORY at 1603 CDT Clinical History Non healing [place] Papule Aprox 1.0 cm from MMIS Scar [...] characteristic determined by the Dermatopathology Laboratory at [facility], directed by Dr. Phani [place]. These tests need not be, and therefore are not, approved by the [place] Food and Drug Administration. The tests are used for clinical purposes. Billing Codes Specimen Charges Stain Charges 58336 1 22751 60530 1 1 4 4:03 PM CDT DERMATOPATHOLOGY LABORATORY Embedded Images 4 4:03 PM CDT DERMATOPATHOLOGY LABORATORY Pathology/Cytolo gy TISSUE SPECIMEN FROM SKIN / Unknown 11/13/2023 10:39 AM CDT 11/14/2023 9:56 AM CDT Sobia Rodriguez MD LAB - PATHOLOGY/CYTOLOGY ORD ERABLES Final Result DERMATOPATHOLOGY LABORATORY [facility] - Department of Dermatology [facility] Medicine [address] [place] [address], [address] [phone] documented in this encounter Visit Diagnoses Not on filedocumented in this encounter Care Teams Claims Vice President Relationship Specialty Start Date End Date Cindy Hughes MD [address] [place] [address] [place] [address] Endocrinology 11/03/19 Elsie Wright OD [address] [place] [address] University Relations Recruiter 11/03/19 documented as of this encounter
--- OUTSIDE RECORDS SUMMARY | 2025-05-13 12:01 | XMS_ITS | Encounter Summary ---
Author Organization [facility] Address [address] [facility] [facility] [place] [address] Care Team Providers Care Molder Fitting Name Role Phone Cindy Hughes MD Unavailable [phone] Elsie Wright OD Unavailable [phone] Encounter Details Date Type Department Care Team (Late Contact Info) Description 04/28/2023 Lab Requisition [facility] [address] [place] [phone] Sobia Rodriguez MD [address] [place] [address] 3 [place] [address] Social History Tobacco Use Types Packs/Day Years Used Date Smoking Tobacco: Never Smokeless Tobacco: Never Comments No Sex and Gender Information Value Date Recorded Sex Assigned at Not on file Legal Sex Female 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 SIGNAL SYSTEM 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 Gender Identity Not on file Sexual Orientation Not on file documented as of this encounter Plan of Treatment Upcoming Encounters Date Type Department Care Team ([facility] Contact Info) Description 09/07/2025 10:30 AM SIGNAL SYSTEM TESTING MAINTAINER Office Visit [facility] - Op[facility]mology [address] [place] [phone] Nadine Newton MD [address] [place] [address] DE[place] [address] [phone] (work) documented as of this encounter Procedures Procedure Name Priority Date/Time Associated Diagnosis Comments DERMATOPATHOLOGY Routine 04/28/2023 3:02 PM CDT documented in this encounter Results * DERMATOPATHOLOGY (04/28/2023 3:02 PM CDT) Case Report Dermatopathology Report Case: [id number] Authorizing Provider: Sobia Rodriguez MD Collected: 04/28/2023 03:02 PM Ordering Location: [facility] DermPath Lab Received: 04/29/2023 11:39 AM Pathologist: [...] characteristic determined by the Dermatopathology Laboratory at [facility], directed by Dr. Phani [place]. These tests need not be, and therefore are not, approved by the [place] Food and Drug Administration. The tests are used for clinical purposes. Billing Codes Specimen Charges Stain Charges 52819 1 10282 1 3 8:42 AM CDT DERMATOPATHOLOGY LABORATORY Embedded Images 3 8:42 AM CDT DERMATOPATHOLOGY LABORATORY Pathology/Cytolo gy TISSUE SPECIMEN FROM SKIN / Unknown 04/28/2023 3:02 PM CDT 04/29/2023 11:39 AM CDT Sobia Rodriguez MD LAB - PATHOLOGY/CYTOLOGY ORD ERABLES Final Result DERMATOPATHOLOGY LABORATORY [facility] - Department of Dermatology [facility] [address] [place] [address], [address] [phone] documented in this encounter Visit Diagnoses Not on filedocumented in this encounter Care Teams Molder Fitting Relationship Specialty Start Date End Date Cindy Hughes MD [address] [place] [address] [place] [address] Endocrinology 11/03/19 Elsie Wright OD [address] [place] [address] Marketing Support Manager 11/03/19 documented as of this encounter
--- OUTSIDE RECORDS SUMMARY | 2025-05-13 12:01 | XMS_ITS | Patient Health Record ---
Author Organization [facility] Address [address] [place], [place] [address] Care Team Providers Care Mobility Architect Manager Name Role Phone Cindy Hughes Unavailable [phone] Migration, Provider Unavailable Unavailable Allergies Allergen (clinical drug ingredient) Drug/Non Drug Allergy documented on EMR Reaction Allergy Type Onset Date Status erythromycin Erythromycin Unknown Drug Allergy A ctive penicillin G Penicillin G Potassium Unknown Drug Allergy Active Results Component Value Reference Range Flag Notes COMPREHENSIVE METABOLIC PANE L Reviewed date:07/15/2024 05:22:04 PM Interpretation: Performing Lab:[place], [facility], [address], [place], [address] GraceHelena Bermudez MD Notes/Report: FASTING:YES FASTING: YES Fasting [...] Reviewed date:07/15/2024 05:22:04 PM Interpretation: Performing Lab:[facility] [employer] [facility] [place], [address] [place], [address] Silvino Bermudez MD Notes/Report: FASTING:YES FASTING: YES T3, FREE 3.1 2.3-4.2 pg/mL N HEMOGLOBIN A1c Reviewed date:07/15/2024 05:22:04 PM Interpretation: Performing Lab:[facility], [address], [place], [address] Silvino Bermudez Notes/Report: FASTING:YES FASTING: YES For [...] diagnosis of diabetes in children. According to [place] Diabetes Association (ADA) guidelines, hemoglobin A1c <7.0% represents optimal control in non- diabetic patients. Different metrics may apply to specific patient populations. Standards of Medical Care in Diabetes(ADA). HEMOGLOBIN A1c 5.5 <5.7 % of total Hgb N INSULIN Reviewed date:07/15/2024 05:22:04 PM Interpretation: Performing Lab:[facility] [employer] [place], [place], [address] Silvino Bermudez MD Notes/Report: FASTING:YES FASTING: YES Reference Range < or = 18.4 Risk: Optimal < or = 18.4 Moderate NA High >18.4 Adult cardiovascular event risk category cut points (optimal, moderate, high) are based on Insulin Reference Interval studies performed at [facility] in 2021. INSULIN 25.0 H CBC (INCLUDES DIFF/PLT) Reviewed date:07/15/2024 05:22:04 PM Interpretation: Performing Lab:[facility] [employer] [place], [address] [place], [address] Silvino Bermudez MD Notes/Report: FASTING:YES FASTING: YES [...] 11.1 7.5-12.5 fL N ABSOLUTE NEUTROPHILS [phone] cells/uL N ABSOLUTE LYMPHOCYTES 8833 642-8433 cells/uL N ABSOLUTE MONOCYTES 323 200-950 cells/uL N ABSOLUTE EOSINOPHILS 73 15-500 cells/uL N ABSOLUTE BASOPHILS 40 0-200 cells/uL N NEUTROPHILS 68.5 N LYMPHOCYTES 24.9 N MONOCYTES 4.9 N EOSINOPHILS 1.1 N BASOPHILS 0.6 N VITAMIN B12/FOLATE, SERUM PA MARITZA Reviewed date:07/15/2024 05:22:04 PM Interpretation: Performing Lab:[email or web address], [address] [place], [address] Silvino Bermudez MD Notes/Report: FASTING:YES FASTING: YES Reference Range Low: <3.4 Borderline: 3.4-5.4 Normal: >5.4 VITAMIN B12 365 547-8061 pg/mL N FOLATE, SERUM 6.8 N LIPID PANEL Reviewed date:07/15/2024 05:22:04 PM Interpretation: Performing Lab:[email or web address], [address] [place], [address] Silvino Bermudez MD Notes/Report: FASTING:YES FASTING: YES [...] LDL-C. Johnnie SS et al. MARICARMEN. 2013;310(19): 1610-5431 (http://OjOs.com.Tax Alli/faq/HDE706) For patients with diabetes plus 1 major [...] Reviewed date:07/15/2024 05:22:04 PM Interpretation: Performing Lab:[facility], [address] [place], [address] Silvino Bermudez MD Notes/Report: FASTING:YES FASTING: YES T4, FREE 1.2 0.8-1.8 ng/dL N TSH Reviewed date:07/15/2024 05:22:04 PM Interpretation: Performing Lab:[facility], [address] [place], [address] Silvino Bermudez MD Notes/Report: FASTING:YES FASTING: YES Reference Range > or = 20 Years 0.40-4.50 Ranges First trimester 0.26-2.66 Second trimester 0.55-2.73 Third trimester 0.43-2.91 TSH 0.71 N T4, FREE (866) Reviewed date:02/24/2025 08:36:46 PM Interpretation: Performing Lab:[facility] [place] Silvino Bermudez MD Notes/Report: FASTING:YES FASTING: YES T4, FREE 1.3 0.8-1.8 ng/dL N TSH (899) Reviewed date:02/24/2025 08:36:46 PM Interpretation: Performing Lab:[facility], BwzvovYA[address] Silvino Bermudez MD Notes/Report: FASTING:YES FASTING: YES TSH 0.94 0.40-4.50 mIU/L N T3, FREE (07114) Reviewed date:02/24/2025 08:36:46 PM Interpretation: Performing Lab:[facility]-Rvjxyl[address], QbbgghAD[address] Silvino Bermudez MD Notes/Report: FASTING:YES FASTING: YES T3, FREE 3.4 2.3-4.2 pg/mL N IRON AND TOTAL IRON BINDING CAPACITY (7573) Reviewed date:10/17/2024 12:28:43 PM Interpretation: Performing Lab:[facility]-Zgpxcp[address], TrslgeZD[address] Silvino Bermudez MD Notes/Report: FASTING:YES FASTING: YES IRON, TOTAL 53 45-160 mcg/dL N IRON BINDING CAPACITY 321 250-450 mc g/dL (calc) N % SATURATION 17 16-45 % (calc) N .LIPID PANEL, STANDARD (7600 ) Reviewed date:10/17/2024 12:28:43 PM Interpretation: Performing Lab:[facility] Silvino Bermudez Notes/Report: FASTING:YES FASTING: YES CHOLESTEROL, TOTAL 174 <200 mg/dL N HDL CHOLESTEROL 54 > OR = 50 mg/dL N TRIGLYCERIDES 196 <150 mg/dL H LDL-CHOLESTEROL 91 N LDL-C is now calculated using the aMry better accuracy than the Friedewald equation in the Reference range: <100 (http://education.Science Behind Sweat/faq/NMS353) estimation of LDL-C. calculation, which is a validated novel method providing <70 mg/dL for patients with CHD or diabetic patients with > or = 2 CHD risk factors. Desirable range <100 mg/dL for primary prevention; Johnnie DESAI et al. MARICARMEN. 2013;310(19): 5045-7968 CHOL/HDLC RATIO 3.2 <5.0 (calc) N NON HDL CHOLESTEROL 120 <130 mg/dL (calc) N factor, treating to a non-HDL-C goal of <100 mg/dL option. (LDL-C of <70 mg/dL) is considered a therapeutic For patients with diabetes plus 1 major ASCVD risk .COMPREHENSIVE METABOLIC SHINE (91307) [facility] Reviewed date:02/24/2025 08:36:46 PM Interpretation: Performing Lab:[facility]Symnag[address], ZkpvdkUD[address] Silvino Bermudez MD Notes/Report: FASTING:YES FASTING: YES [...] Reviewed date:02/24/2025 08:36:46 PM Interpretation: Performing Lab:[facility] [employer] [facility] Sean-Xcjbfp[address], EcpcklYQ[address] Silvino Bermudez MD Notes/Report: FASTING:YES FASTING: YES CHOLESTEROL, TOTAL 173 <200 mg/dL N HDL CHOLESTEROL 52 > OR = 50 mg/dL N TRIGLYCERIDES 168 <150 mg/dL H LDL-CHOLESTEROL 94 N Desirable range <100 mg/dL for primary prevention; Johnnie SS et al. MARICARMEN. 2013;310(19): 6419-4392 (http://education.Science Behind Sweat/faq/WLK974) LDL-C is now calculated using the Johnnie-Baum [...] Reviewed date:02/24/2025 08:36:46 PM Interpretation: Performing Lab:[facility]-[address]uva[address], AjvqziIF[address] Silvino Bermudez MD Notes/Report: FASTING:YES FASTING: YES [...] 10.6 7.5-12.5 fL N ABSOLUTE NEUTROPHILS 4238 7199-9882 cells/uL N ABSOLUTE LYMPHOCYTES 1287 375-1697 cells/uL N ABSOLUTE MONOCYTES 338 200-950 cells/uL N ABSOLUTE EOSINOPHILS 78 15-500 cells/uL N ABSOLUTE BASOPHILS 52 0-200 cells/uL N NEUTROPHILS 65.2 N LYMPHOCYTES 27.6 N MONOCYTES 5.2 N EOSINOPHILS 1.2 N BASOPHILS 0.8 N .VITAMIN D,25-OH,TOTAL,IA (1 7306) Reviewed date:10/17/2024 12:28:43 PM Interpretation: Performing Lab:[facility]-Yjwhxe[address], TyiibjAI[address] Silvino Bermudez MD Notes/Report: FASTING:YES FASTING: YES VITAMIN D,25-OH,TOTAL,IA 33 30-100 ng/mL N For additional information, please refer to Vitamin D Status 25-OH Vitamin D: of D2 and D3 fractions is required, the QuestAssureD(TM) Insufficiency: 20 - 29 ng/mL Note 1 educational purposes only.) http://education.MT DIGITAL MEDIA/faq/AYB975 For 25-OH Vitamin D testing on patients on Deficiency: <20 ng/mL See Note 1 D2-supplementation and patients for whom quantitation Optimal: > or = 30 ng/mL 25-OH VIT D, (D2,D3), LC/MS/MS is recommended: order code 38839 (patients >2yrs). (This link is being provided for informational/ TSH (899) Reviewed date:10/17/2024 12:28:43 PM Interpretation: Performing Lab:[facility] [address] RskxccmBW[address] Silvino Bermudez Notes/Report: FASTING:YES FASTING: YES TSH 0.51 N First trimester 0.26-2.66 Third trimester 0.43-2.91 Ranges > or = 20 Years 0.40-4.50 Second trimester 0.55-2.73 Reference Range T4, FREE (866) Reviewed date:10/17/2024 12:28:43 PM Interpretation: Performing Lab:[facility] [address] VadaglqSO[address] Silvino Bermudez Notes/Report: FASTING:YES FASTING: YES T4, FREE 1.3 0.8-1.8 ng/dL N .HEMOGLOBIN A1c (496) Reviewed date:10/17/2024 12:28:43 PM Interpretation: Performing Lab:[facility] [place] [address] [address] MufrrivLL[address] GraceSuraj Garcia Notes/Report: FASTING:YES FASTING: YES HEMOGLOBIN A1c 5.5 [...] of diabetes in children. (prediabetes) According to [place] [employer] Association (ADA) .COMPREHENSIVE METABOLIC SHINE EL (29885) [facility] Reviewed date:10/17/2024 12:28:43 PM Interpretation: Performing Lab:[facility] [place] [address] [address] XqcmikuAP[address] GraceHelena Garcia Notes/Report: FASTING:YES FASTING: YES GLUCOSE 94 65-99 [...] U/L N ALT 20 6-29 U/L N T3, FREE (41704) Reviewed date:10/17/2024 12:28:43 PM Interpretation: Performing Lab:[place] [facility]-Tggasd077[address] Ybarra[address] Silvino Bermudez MD Notes/Report: FASTING:YES FASTING: YES T3, FREE 3.2 2.3-4.2 pg/mL N VITAMIN B12/FOLATE, SERUM PA MARITZA (4887) Reviewed date:10/17/2024 12:28:43 PM Interpretation: Performing Lab:[place] [facility] Marc[address] Silvino Bermudez MD Notes/Report: FASTING:YES FASTING: YES VITAMIN B12 429 788-1854 pg/mL N FOLATE, SERUM 6.6 N Low: <3.4 Borderline: 3.4-5.4 Reference Range Normal: >5.4 INSULIN (561) Reviewed date:10/17/2024 12:28:43 PM Interpretation: Performing Lab:[place] [facility] [place] Silvino Bermudez MD Notes/Report: FASTING:YES FASTING: YES INSULIN 14.8 N cut points (optimal, moderate, high) Adult cardiovascular event risk category Risk: Optimal < or = 18.4 Moderate NA studies performed at [facility] in 2021. High >18.4 are based on Insulin Reference Interval Reference Range < or = 18.4 .CBC (INCLUDES DIFF/PLT) (63 99) Reviewed date:10/17/2024 12:28:43 PM Interpretation: Performing Lab:[facility] FuglemdUM[address] Silvino Bermudez Notes/Report: FASTING:YES FASTING: YES WHITE [...] 11.8 7.5-12.5 fL N ABSOLUTE NEUTROPHILS 4536 5999-2297 cells/uL N ABSOLUTE LYMPHOCYTES 5180 117-5191 cells/uL N ABSOLUTE MONOCYTES 333 200-950 cells/uL N ABSOLUTE EOSINOPHILS 68 15-500 cells/uL N ABSOLUTE BASOPHILS 27 0-200 cells/uL N NEUTROPHILS 66.7 N LYMPHOCYTES 27.0 N MONOCYTES 4.9 N EOSINOPHILS 1.0 N BASOPHILS 0.4 N Reason For Referral No Information Medications [...] Problem Toxic diffuse goiter 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 crisis (365303809) 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 Problem Autoimmune thyroiditis (37261558) Autoimmune thyroiditis (E06.3) Active confirmed Problem Overweight (316379693) Overweight (E66.3) Active confirmed Problem Obesity (713943409) Obesity, unspecified (E66.9) Active confirmed Problem Pure hyperglyceridemia (336653314) Pure hyperglyceridemia (E78.1) Active confirmed Problem Essential hypertension (16693749) Essential (primary) hypertension (I10) Active confirmed Problem Goiter (0968526) Goiter (E04.9) Active confirme d Vital Signs Heart Rate 70 /min 03/15/2025 Respiratory Rate 12 /min 10/27/2024 Oximetry 98 % 03/15/2025 Height-cm 157.48 cm 03/15/2025 Blood pressure diastolic 75 mm Hg 03/15/2025 Weight-kg 63.96 kg 03/15/2025 Height 62 in 03/15/2025 Blood pressure systolic 148 mm Hg 03/15/2025 Weight 141 lbs 03/15/2025 BMI 25.79 kg/m2 03/15/2025 Encounters Encounter Location Date Provider Diagnosis [facility] [place], [place] [id number] 05/22/2024 Provider Migration Essential (primary) hypertension I10 ; Prediabetes R73.03 and Obesity, unspecified E66.[address] Hughes [address] [place] [address] 05/28/2024 Cindy Hughes Thyrotoxicosis with diffuse goiter without thyrotoxic crisis or storm E05.00 ; Essential (primary) hypertension I10 and Obesity, unspecified E66.[address] Hughes [address] [place] [address] 07/19/2024 Cindy Hughes Obesity, unspecified E66.9 ; Essential (primary) hypertension I10 ; Dietary counseling and surveillance Z71.3 ; Pure hyperglyceridemia E78.1 and Autoimmune thyroiditis E06.[address] Hughes [address] [place] [address] 10/27/2024 Cindy Hughes Autoimmune thyroidit is E06.3 ; Pure hyperglyceridemia E78.1 ; Essential (primary) hypertension I10 ; Overweight E66.3 and Obesity, unspecified E66.[address] Hughes [address] [place] [address] 03/15/2025 Cindy Hughes Autoimmune thyroidit is E06.3 ; Overweight E66.3 ; Pure hyperglyceridemia E78.1 ; Essential (primary) hypertension I10 ; Goiter E04.9 and Dietary counseling and surveillance Z71.[address] Hughes [address] [place] [address] 11/17/2024 Cindy CLARK [facility] [address] [place] [address] 11/22/2024 Cindy CLARK [facility] [address] [place] [phone] 01/31/2025 Cindy CLARK [facility] [address] [place] [address] 03/31/2025 Cindy Hughes [address] [place] [address] 11/10/2024 Cindy Hughes Obesity, unspecified E66.[address] Hughes [address] [place] [address] 04/11/2025 Cindy Hughes Assessments Encounter Date Diagnosis (ICD Code) Assessment Notes Treatment Notes Treatment Clinical Notes Section Notes 05/22/2024 Essential (primary) hypertension (ICD-10 - I10) 05/28/2024 Thyrotoxicosis with diffuse goiter without thyrotoxic crisis or storm (ICD-10 - E05.00) 11/10/2024 Obesity, unspecified (ICD-10 - E66.9) 03/15/2025 Autoimmune thyroiditis (ICD-10 - E06.3) 03/15/2025 Overweight (ICD-10 - E66.3) 10/27/2024 Autoimmune thyroiditis (ICD-10 - E06.3) 10/27/2024 Pure hyperglyceridemia (ICD-10 - E78.1) 07/19/2024 Obesity, unspecified (ICD-10 - E66.9) 07/19/2024 Essential (primary) hypertension (ICD-10 - I10) 07/19/2024 Dietary counseling and surveillance (ICD-10 - Z71.3) 10/27/2024 Essential (primary) hypertension (ICD-10 - I10) 05/28/2024 Essential (primary) hypertension (ICD-10 - I10) 03/15/2025 Pure hyperglyceridemia (ICD-10 - E78.1) 05/22/2024 Prediabetes (ICD-10 - R73.03) 05/22/2024 Obesity, unspecified (ICD-10 - E66.9) 05/28/2024 Obesity, unspecified (ICD-10 - E66.9) 03/15/2025 Essential (primary) hypertension (ICD-10 - I10) 10/27/2024 Overweight (ICD-10 - E66.3) 07/19/2024 Pure hyperglyceridemia (ICD-10 - E78.1) 07/19/2024 Autoimmune thyroiditis (ICD-10 - E06.3) 10/27/2024 Obesity, unspecified (ICD-10 - E66.9) 03/15/2025 Goiter (ICD-10 - E04.9) 03/15/2025 Dietary counseling and surveillance (ICD-10 - [...] Send lab work orders to patient's email ([email or web address]) and have them completed before the next appointment. Spent 25 minutes preparing to see the patient (ex review of tests/chart), obtaining and / or reviewing separately obtained history, performing a medically appropriate examination and/or evaluation, counseling and educating the patient/family/caregi alexis, ordering medications, tests, or procedures, referring and communicating with other health career portals teacher, documenting clinical information in the electronic or [...] fish oil supplementation with omega-3 fatty acids PrxrexzfuywS3w is now well below prediabetes levels (5.5-5.7). Continue Zepbound and monitor blood sugar levels Encourage a well-balanced diet with fruits, veggies, and lean meats, avoiding processed foods and starches Vitamin B12 and Folic Acid LevelsLevels are within normal range. If fatigue occurs, consider a methylated B12 folic acid supplement Follow-up:Email new lab order to [email or web address] follow-up appointment in 3-4 monthsCall if any [...] procedures, referring and communicating with other health career portals teacher, documenting clinical information in the electronic or [...] indicating insufficiency- Recommend vitamin D supplementation of 1694-5915 IUs daily if not getting sufficient outdoor [...] procedures, referring and communicating with other health career portals teacher, documenting clinical information in the electronic or [...] control. Patient follows up annually with an parts advisor (Dr. Newton) in [place] for thyroid eye disease monitoring.Plan:- Continue current [...] procedures, referring and communicating with other health career portals teacher, documenting clinical information in the electronic or [...] Name Order Date *US HEAD AND NECK/THYROID [id number] 03/15/20 25 Insurance Providers Payer Name Payer Address Payer Phone Subscriber Number Group Number Insured Name Patient Relationship to Insured Coverage Start Date Coverage End Date [employer] [address] [place], [place] [id number] Damari Ventura Self - patient is the insured Medical (General) History Medical History History ICD Code GRAVES HYPERTHYROID Surgical History Surgery Date(Month/Year) DUSTIN 04/2023
--- OUTSIDE RECORDS SUMMARY | 2025-05-13 12:01 | XMS_ITS | Encounter Summary ---
Author Organization [facility] Address [address] [place] [address] Care Team Providers Care Grievance And Appeals Specialist Name Role Phone Cindy Hughes MD Unavailable [phone] Elsie Wright OD Unavailable [phone] Encounter Details Date Type Department Care Team (Late Contact Info) Description 05/19/2023 Lab Requisition [facility] Derm[facility] [address] [place] [id number] Magui Marmolejo MD [address] [place] [address] Social History Tobacco Use Types Packs/Day Years Used Date Smoking Tobacco: Never Smokeless Tobacco: Never Comments No Sex and Gender Information Value Date Recorded Sex Assigned at Not on file Legal Sex Female 11:42 AM RELIGIOUS STUDIES PROFESSOR Gender Identity Not on file Sexual Orientation Not on file documented as of this encounter Plan of Treatment Upcoming Encounters Date Type Department Care Team (Late Contact Info) Description 09/07/2025 10:30 AM RELIGIOUS STUDIES PROFESSOR Office Visit [facility] - Ophthalmology [address] [place] [phone] Nadine Newton MD [address] [place] [address] [place] [address] [phone] (work) documented as of this encounter Procedures Procedure Name Priority Date/Time Associated Diagnosis Comments DERMATOPATHOLOGY Routine 05/19/2023 4:15 PM RELIGIOUS STUDIES PROFESSOR documented in this encounter Results * DERMATOPATHOLOGY (05/19/2023 4:15 PM RELIGIOUS STUDIES PROFESSOR) Case Report Dermatopathology Report Case: [id number] Authorizing Provider: Magui Marmolejo MD Collected: 05/19/2023 04:15 PM Ordering Location: [facility] DermPath Lab Received: 05/20/2023 03:29 PM Pathologist: Evelia Ragland MD Specimen: Skin, right lateral cheek 3 4:06 PM [facility] DERMATOPATHOLOGY LABORATORY Final Diagnosis Specimen A. 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 Jar 0. 3 4:06 PM [facility] DERMATOPATHOLOGY LABORATORY Microscopic Description Specimen A. [...] to the skin surface. 3 4:06 PM RELIGIOUS STUDIES PROFESSOR DERMATOPATHOLOGY LABORATORY Disclaimer An external and internal positive and negative controls are appropriate for the histochemical, immunohistochemical and immunofluorescence stain(s) in this case (if any), except where stated explicitly. The performance characteristics of the stain(s) cited in this report were developed and its performance characteristic determined by the Dermatopathology Laboratory at [facility], directed by Dr. Phani Carmona. These tests need not be, and therefore are not, approved by the [place] Food and Drug Administration. The tests are used for clinical purposes. Billing Codes Specimen Charges Stain Charges 61588 1 14479 81935 1 1 3 4:06 PM RELIGIOUS STUDIES PROFESSOR DERMATOPATHOLOGY LABORATORY Embedded Images 3 4:06 PM RELIGIOUS STUDIES PROFESSOR DERMATOPATHOLOGY LABORATORY Pathology/Cytolo gy TISSUE SPECIMEN FROM SKIN / Unknown 05/19/2023 4:15 PM RELIGIOUS STUDIES PROFESSOR 05/20/2023 3:29 PM RELIGIOUS STUDIES PROFESSOR Magui Marmolejo MD LAB - PATHOLOGY/CYTOLOGY ORDERA BLES Final Result DERMATOPATHOLOGY LABORATORY [facility] - Department of Dermatology [facility] Specialized Medicine [address] [place] [address], [address] [phone] documented in this encounter Visit Diagnoses Not on filedocumented in this encounter Care Teams Grievance And Appeals Specialist Relationship Specialty Start Date End Date Cindy Hughes MD [address] [place] [address] Endocrinology 11/03/19 Elsie Wright OD [address] [place] [address] Maintenance Groundskeeper 11/03/19 documented as of this encounter
[2025-05-13 12:51] LABS: Alanine Aminotransferase 21 U/L (6-35); Albumin Level 4.4 g/dL (3.5-5.1); Alkaline Phosphatase 65 U/L (38-126); Amylase 105 U/L (30-110); Aspartate Amino Transferase 37 U/L (14-36); Bilirubin,Total 0.7 mg/dL (0.2-1.3); Lipase 87 U/L (23-300); Total Protein 7.2 g/dL (6.3-8.2)
== END 2025-05-13 11:15 | disposition home or self-care (01) ==
LOC: ANHSURGERY 11:22
PROVIDERS: PCP Physician Assistant; Visit Provider Surgery
DX: K82.8 Other specified diseases of gallbladder (principal); I10 Essential (primary) hypertension; Z01.818 Encounter for other preprocedural examination
CPT/HCPCS: 36415; 80076; 82150; 83690; 93005

== ENCOUNTER 2025-05-20 01:17 | Day surgery (SDC) | payer OTHER, SELFPAY ==
--- OUTSIDE RECORDS SUMMARY | 2024-05-22 15:00 | XMS_ITS ---
Author Organization [facility] Address [address] [place], [place] [address] Care Team Providers Care Research Assistant Name Role Phone Cindy Hughes Unavailable [phone] Migration, Provider Unavailable Unavailable Allergies Allergen (clinical drug ingredient) Drug/Non Drug Allergy documented on EMR Reaction Allergy Type Onset Date Status erythromycin Erythromycin Unknown Drug Allergy A ctive penicillin G Penicillin G Potassium Unknown Drug Allergy Active REASON FOR VISIT [facility] To [facility] Conversion Encounter Medications Medication SIG (Take, [...] Active Encounters Encounter Location Date Provider Diagnosis [address] [phone] 05/22/2024 Provider Migration Essential (primary) hypertension I10 [...] * Arlene OWENSB: 969 (54 yo F)Acc No.[id number]:05/22/2024 Patient: Elijah Damari duque Provider: Brooke Bhatti :1970 A ge:53 Y S ex:Female Date:05/22/2024 Phone: Address:[address] [place], [place] [id number] Subjective: * Chief Complaints: * M tum To [facility] Conversion Encounter * Medications: T akingmethIMAzole [...] Electronic signature of Prov ider Migration on 05/20/2025 at 01:31 AM HEAD USHER Sign off status: Pending * Provider: Brooke brown Migration Date: 07/22/2023 Generated for Moiz greer/Anselmo/Korin on: 07/20/2024 01:31 AM HEAD USHER
[2025-05-10 10:27] VITALS: BMI 25.2
--- NOTE | 2025-05-10 10:37 | PC.NURSE ---
[facility] has started construction of its new state of the art ER which will open Spring 2026. With this, we anticipate parking may be a challenge for some our surgical patients and families. Parking spaces are limited but are available for all Surgical, obstetrics, and ER patients sharing this lot. If you arrive and find you are having a hard time finding a parking space, please note that we understand the challenges, please drive around the hospital and park near Hospital Entrance 1. When you enter this entrance, you can ask a volunteer to direct or take you back to the surgical waiting area to check in. We appreciate everyone?s understanding of these expected challenges while we build for your future. Report to the Outpatient Waiting Room, entrance under the green pavilion located off [address], at time _1100_ on date _[phone]_. Planned Procedure Time: _1pm_.? Time changes happen often and if your time is changed the preop area will call you the afternoon before. - You and your visitor will be asked to self-screen and do not enter if you have any COVID symptoms. Please call surgeon if you need to reschedule. - A mask is optional within the hospital at this time. Patients may have clear liquids (water, carbonated beverages, clear teas, apple juice) until 3 hours prior to surgery with a maximum of 20 ounces. - No food from midnight until time of surgery and no smoking, or chewing tobacco (or any form of nicotine). No chewing gum, candy or mints. Take only the following medications with a SIP of water on the morning of surgery: ____None DO NOT STOP ANY OF YOUR OTHER PRESCRIPTION MEDICATIONS PRIOR TO SURGERY EXCEPT THE FOLLOWING Hold all vitamins and supplements for 3 days per anesthesiologist. Medications to discontinue per physician Zepbound stop now until after surgery. Date to take last dose Please no make-up, nail setswana, hairspray, perfume, deodorant, or body powder the day of surgery.? No jewelry (including any body piercings) or valuables the day of surgery, leave them at home.? Please take a shower or bath the night before, or the morning of, surgery with an antibacterial soap.? Wear comfortable, loose fitting clothing.? - Jewelry must be removed prior to entering the operating room.? Rings and piercings that are not removed may be cut off. - The hospital will not accept responsibility for valuables.? - Please leave all valuables, including medications, at home the day of surgery. If you are going home after surgery, a licensed tanker driver must drive you home.? - NO public transportation without another adult if you receive anesthesia. - We recommend that an adult stay with you for 24 hours following discharge. - We also recommend that you do not drive, make important decision, drink alcoholic beverages, or take any drugs that were not prescribed by your health care provider for at least 24 hours after your discharge time. Follow any additional instructions given to you from your surgeon. Telephone instructions given to __Damari___and asked if any additional questions and then verbalized understanding. Patient advised to call surgeon office or pre surgery nurse liaison [phone] if any additional questions.
[2025-05-20] VITALS (9 sets, daily range): BP systolic 125–158; BP diastolic 50–82; PULSE 61–80; RESP 12–16; TEMP 36.3–36.4; O2SAT 98–100; BMI 25.0
--- OUTSIDE RECORDS SUMMARY | 2025-05-20 01:31 | XMS_ITS | Data Portability ---
Author Organization [facility] FAUSTOLamin Nacho Address [address] [place] [address] Care Team Providers Care Software Asset Manager Name Role Phone KELSIE KRAUSE Primary Care Provider Unavailab le Assessment Encounter Date Assessment Date Assessment LastModified by Organization Details LastModified Time 11/25/2023 11/25/2023 colonoscopy 2020 all clear repeat [address] [facility] 1 year ago and next in january eye exam UTD dental UTD labs due. Not available 11/25/2023 16:19:48 10/28/2024 10/28/2024 colonoscopy 2020 all clear repeat [address] dunaway [facility] 1 year ago and next in january eye exam UTD dental UTD labs UTD Not available 10/28/2024 15:11:12 Plan of Treatment Reminders Order Date Submit Date Provider Last Modified By Organization Details Last Modified Time Details Appointments ANNUAL 30 2025 08:30A M AMANDA Romero Not available Not available Not available Lab TSH + free T4, serum 2023 024 [employer], [address], [place], [address], 12/22/2023 14:21:11 tsi (thyroid- stimulati ng immunoglo bulin), serum 2023 024 [employer] [facility], [address], [place], [address], 12/22/2023 14:21:11 thyroid peroxidas e (tpo) Ab, serum 2023 024 [email or web address], [address], [place], [address], 12/22/2023 14:21:11 CMP, serum or plasma 2023 024 [facility], [address], [place], [address], 12/16/2023 15:24:37 CBC w/ auto diff 2023 024 [email or web address] [facility], [address], [place], [address], 01/21/2024 16:25:04 rf (rheumato id factor), serum 2023 024 [facility], [address], [place], [address], 12/16/2023 15:24:36 erythrocy te sedimenta tion rate by westergre n method 2023 024 [facility], [address], [place], [address], 12/16/2023 15:24:36 C-reactiv e protein, quantitat reji, serum or plasma 2023 024 [email or web address] [facility], [address], [place], [address], 12/23/2023 14:33:13 ARIE (antinucl ear antibodie s) screen, serum [facility]23 [facility], [address], [place], [address], 12/16/2023 15:24:37 ccp (cyclic citrullin ated peptide) igg, serum 2023 024 [email or web address] [facility], [address], [place], [address], 12/16/2023 15:24:37 Referral endocrino logy referral 2023 024 [place], [address] , [place], [address], 03/23/2024 17:09:16 Procedures nerve conductio n study (ncs) (PROC) 2024 025 [id number], [address] [facility], [place], [address], 01/15/2025 05:25:28 Surgeries None recorded. Imaging US, gallbladd er 2024 025 [facility] (Imaging), [address], [place], [address], 03/29/2025 13:42:15 XR, knee, 3 view 2024 025 [facility], [address], [facility] [address], [place], [address], 11/01/2024 11:04:38 Medication Orders losartan 25 mg tablet 2024 025 [id number], [address] [facility] [address], [place], [place], [id number], 03/29/2025 09:04:03 Patient TargetsNo targets recorded. Patient Instructions Encounter Date Encounter Id Patient Instructions Last Modified By Organization Details Last Modified Time 11/25/2023 [id number] A healthy lifestyle: care instructions Not available 12/08/2023 08:08:48 03/28/2025 [id number] A healthy lifestyle: care instructions Not available 04/05/2025 22:06:03 Reason for Referral Endocrinology Referral for G raves' disease Referring Physician: Kelsie Krause, Internal Medicine, Encounter Date: 11/25/2023 Results Created Date Observation Date Name Description Value Unit Range Abnormal Flag Note LastModifiedBy Organization Detail LastModifiedTime 11/18/19 25 11/23/2024 Skin Patho logy biops y repor t pathology report.secti on heading Dermat opatho logy Report Case: [id number] Author izing Provid er: Damon Rodriguez MD Collec edward: 2024 03:36 PM Orderi ng Locati on: [facility] - Receiv ed: 2024 04:13 PM DermPa th Lab Pathol ogist: Zuleika Luis MD Specim ens: A) - Skin, left thigh B) - Skin, left latera l cheek Case Repor t [facility] topat holog y Repor t Case: [id number] Autho alexis pollard Provi marisa: Brynn Rodriguez MD Colle cted: 11/17 03:36 PM Order ing Locat ion: [facility] - Recei jordan: 11/18 04:13 PM DermP ath Lab Patho logis t: Parvin Yu MD Speci mens: A) - Skin, left thigh B) - Skin, left later al cheek 11/23 10:07 AM CDT [facility] Not Available Not Available 11/24/2024 13:00:12 11/18/19 25 11/23/2024 Skin Patho logy biops y repor t pathology report final diagnosis narrative Specim en A. 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 SKIN, left latera l cheek: COMPOU ND MELANO CYTIC NEVUS (D22.3 9) Final Diagn osis Speci men A. SKIN, left thigh : COMPO UND NEVUS WITH CONGE NITAL FEATU RES, IRRIT ATED (D22. 72) Speci men B. SKIN, left later al cheek : COMPO UND MELAN OCYTI C NEVUS (D22. 39) 11/23 10:07 AM CDT [facility] Elect jordan burkett salbador d by Foreign shaikh MD on 2024 at 1007 CDT Not Available Not Available 11/24/2024 13:00:12 11/18/19 25 11/23/2024 Skin Patho logy biops y repor t pathology report relevant history narrative A. Rene Brewsteri ng Papule Nevus R/O Atypia B. Rene Brewsteri ng Papule Nevus vs ISK vs. R/O Atypia Clini grant Histo ry A. Rene Brewster ing Papul e Nevus R/O Atypi a B. Rene Brewster ing Papul e Nevus vs ISK vs. R/O Atypi a 11/23 10:07 AM CDT [facility] Not Available Not Available 11/24/2024 13:00:12 11/18/19 25 11/23/2024 Skin Patho logy biops y repor t pathology report gross observation narrative Specim en A: Receiv ed is one formal in filled contai ner labele d with the patien t's name and design ated left thigh. The specim en consis ts of a shave biopsy measur ing 7x7x1 mm. Jar 0. Specim en B: Receiv ed is one formal in filled contai ner labele d with the patien t's name and design ated left latera l cheek. The specim en consis ts of a shave biopsy measur ing 7x4x1 mm. Jar 0. Gross Descr iptio n Speci men A: Recei jordan is one forma brian fille d conta iner label ed with the patie nt's name and desig nated left thigh . The speci men consi sts of a shave biops y measu ring 7x7x1 mm. Jar 0. Speci men B: Recei jordan is one forma brian fille d conta iner label ed with the patie nt's name and desig nated left later al cheek . The speci men consi sts of a shave biops y measu ring 7x4x1 mm. Jar 0. 11/23 10:07 AM CDT [facility] Not Available Not Available 11/24/2024 13:00:12 11/18/19 25 11/23/2024 Skin Patho logy biops y repor t pathology report microscopic observation narrative other stain Specim en A. SKIN, left thigh: There are nests of melano cytes at the dermal -epide rmal juncti on and within the dermis . Some melano cytes are splaye d betwee n collag en bundle s and are locali zed around adnexa l struct ures. There is cristina n pigmen t in the stratu m corneu m. Specim en B. SKIN, left latera l cheek: There are nests of melano cytes at the dermal -epide rmal juncti on and within the dermis . Micro scopi c Descr iptio n Speci men A. SKIN, left thigh : There are nests of melan ocyte s at the derma l-epi derma l junct ion and withi n the dermi s. Some melan ocyte s are splay ed betwe en colla gen bundl es and are local ized aroun d adnex al struc tures . There is melan in pigme nt in the strat um corne um. Speci men B. SKIN, left later al cheek : There are nests of melan ocyte s at the derma l-epi derma l junct ion and withi n the dermi s. 11/23 10:07 AM CDT [facility] Not Available Not Available 11/24/2024 13:00:12 11/18/19 25 11/23/2024 Skin Patho logy biops y repor t service comment An climate change risk assessor al and global marketing intern al positi ve and negati ve contro ls are approp riate for the histoc hemica l, immuno histoc hemica l and immuno fluore scence stain( s) in this case (if any), except where stated explic itly. The perfor reji charac terist ics of the stain( s) cited in this report were develo ped and its perfor reji charac terist ic determ ined by the Dermat opatho logy [facility] at [facility], direct ed by Dr. Phani Carmona . These tests need not be, and theref ore are not, approv ed by the [facility] Food and Drug Admini strati on. The tests are used for clinic al purpos es. Adri g Codes Specim en Charge s Stain Charge s [id number] 1 1 Discl aimer An exter nal and inter nal posit reji and negat reji contr ols are appro priat e for the histo chemi grant, immun ohist ochem ical and immun ofluo resce nce stain (s) in this case (if any), excep t where state d expli citly . The perfo rmanc e fatmata cteri stics of the stain (s) cited in this repor t were devel oped and its perfo rmanc e fatmata cteri stic deter mined by the [facility] top[facility] holog y Labor atory at [facility] edward by Dr. Phani Ahmadi. These tests need not be, and there fore are not, appro jordan by the [facility] Food and Drug Admin istra tion. The tests are used for clini grant purpo ses. Rob ng Codes Speci men Charg es Stain Charg [place] [id number] 1 1 11/23 10:07 AM CDT [facility] TOPAT [facility] Y LABOR AT[facility] Not Available Not Available 11/24/2024 13:00:12 11/18/19 25 11/23/2024 Skin Patho logy biops y repor t embedded images Embed ded Image s 11/23 10:07 AM CDT [facility] LAB[facility] AT[facility] Not Available Not Available 11/24/2024 13:00:12 11/02/19 25 11/01/2024 XR, knee, 3 view No observ ation record ed. ZBIGNIEW [facility] [address], [place], [address], 11/03/2024 11:24:18 11/24/19 25 11/22/2024 CT, wrist , w/o contr ast No observ ation record ed. [email or web address] [facility] [address], [place], [address], 01/31/2025 15:43:29 12/07/19 25 12/06/2024 nerve condu ction study (ncs) (PROC ) No observ ation record ed. [facility] [address] [facility] [address], [place], [address], 12/31/2024 15:27:10 03/29/20 25 03/29/2025 US, freddie lópez r No observ ation record ed. [facility] [address], [place], [address], 03/30/2025 10:49:31 04/06/2004/06/2025 NM, hepat obili lenny scan, w/ CCK No observ ation record ed. [facility] [address], [place], [address], 04/07/2025 15:16:10 Result Notes None recorded. Problems Name Problem SNOMED Code Status Onset Date Resolution Date Notes Provider Name and Address Organization Details Recorded Time History of malignant melanoma of the skin 217858388855 Active 2023 AMANDA Romero Attn: Beverly pollard,[address] [place], [address], [facility] [place] - [facility] 4 08:08:27 Mixed hyperlipide ashley 336217202 Active 2023 AMANDA Romero Attn: Beverly pollard,[address] [place], [address], [facility] [place] - [facility] 4 08:08:28 Graves' disease 256104350 Active 2023 AMANDA Romero Attn: Beverly pollard,[address] [place], [address], [facility] [place] - [place] 4 08:08:29 Pain of multiple joints 59045503 Active 2023 AMANDA Romero Attn: Beverly pollard,[address] [place], [address], [place] - [facility] 4 08:08:31 Benign essential hypertensio n 7828720 Active 2023 AMANDA Romero Attn: Loanmary beth pollard,[address] [facility], [place], [address], [place] [facility] 5 22:05:59 Long-term drug therapy Active 2023 AMANDA Romero Attn: Loanmary beth pollard,[address] [facility], [place], [address], [place] [facility] 4 08:08:34 Obesity 392174889 Active 2023 AMANDA Romero Attn: Loanmary beth pollard,[address] [facility], [place], [address], [place] - [facility] 4 08:08:50 Overweight in adulthood with body mass index of 25 or more but less than 30 273878582 Active 2024 AMANDA Romero Attn: Beverly latrice,[address] [facility], [place], [address], [place] - [facility] 5 22:06:01 Pain of right knee joint 9861460233145 00 Active 2024 AMANDA Romero Attn: Loanmary beth pollard,[address] [facility], [place], [address], [place] - [facility] 5 12:11:41 Paresthesia of hand 493649012 Active 2024 AMANDA Romero Attn: Beverly pollard,[address] [facility], [place], [address], [place] - [facility] 5 12:11:50 Biliary sludge 91905440 Active 2024 AMANDA Romero Attn: Beverly latrice,[address] [place], [address], [place] - [facility] 5 09:04:35 Problem Notes None recorded. Procedures Surgical History Date Name Laterality Status Provider Name and Address Organization Details Recorded Time Tonsillectomy completed Elder Barnes MA [facility] 11/25/2023 15:51:46 LEEP completed Elder Barnes MA [facility] 11/25/2023 15:51:52 Imaging Results None recorded. Procedure Notes None recorded. Medical Equipment None Reported. Allergies Allergen ID Allergen Name Allergen Category Reaction Reaction Severity Criticality Documentation Date Start Date Code Code System Note Provider Name and Address Organization Details Recorded Time 785486 Product containin g penicilli n (product) medicatio n Not available Not available Not available 11/25/2023 61429 8001 SNOMED SANTIAGO Jackson, [facility] 4 15:43:25 146278 azithromy estuardo medicatio n Not available Not available Not available 11/25/2023 83996 RxNorm SANTIAGO Jackson, [facility] 4 15:50:55 470783 erythromy estuardo medicatio n Not available Not available Not available 11/25/2023 4053 RxNorm SANTIAGO Jackson, [facility] 4 15:50:53 364691 penicilli n G Not available rash swelling Not available Not available [facility] 03/28/20252018 7980 RxNorm SANTIAGO [place], [place] - [facility] 5 17:26:22 19670811 clemizolp enicillin Not available swelling Not available Not available 03/28/20252012 28018 RxNorm Patie nt does not recal l this aller gy react ion but searc h may be relat ed to penic illin ? SANTIAGO Jackson, [facility] 5 17:26:24 Medications Name Sig Start Date Stop Date Status Note LastModified by Organization Details LastModified Time clindamycin HCl 300 mg capsule TAKE 1 CAPSULE BY MOUTH THREE TIMES DAILY 03/28 completed Not Available Not Available Not Available meloxicam 15 mg tablet Take 1 tablet every day by oral route for 30 days. active Not Available Not Available No t Available losartan 25 mg tablet TAKE 1 TABLET BY MOUTH EVERY DAY active Not Available Not Available No t Available methimazole 5 mg tablet TAKE 1 TABLET BY MOUTH EVERY OTHER DAY 10/28 completed Not Available Not Available Not Available ergocalcife rol (vitamin D2) 1,250 mcg (50,000 unit) capsule TAKE 1 CAPSULE BY MOUTH WEEKLY active Not Available Not Available No t Available methylpredn isolone 4 mg tablets in a dose pack FOLLOW PACKAGE DIRECTION S 03/28 completed Not Available Not Available Not Available Zepbound 7.5 mg/0.5 mL subcutaneou s pen injector ADMINISTE R 7.5MG UNDER THE SKIN WEEKLY active Not Available Not Available No t Available Vitals Date Recorded Systolic And Diastolic Provider Name and Address Organization Details Last Updated DateTime 10/28/2024 140/80 mm[Hg] AMANDA Romero Attn: Accounting,[address] [place], [address], [facility] 10/28/2024 15:15:37 Date Recorded Body height Body mass index (BMI) Body weight Respiratory rate Oxygen saturation Oxygen saturation in Arterial blood by Pulse oximetry Heart rate Systolic And Diastolic Systolic And Diastolic Provider Name and Address Organization Details Last Updated DateTime 5 157.48 cm 26.5 kg/m2 35393.8 9 g 20 /min 98 % 98 % 75 /min 142/80 mm[Hg] 138/82 mm[Hg] Elder Barnes MA [facility] 5 14:47:47 Date Recorded Systolic And Diastolic Systolic And Diastolic Provider Name and Address Organization Details Last Updated DateTime 11/25/2023 150/70 mm[Hg] 160/70 mm[Hg] AMANDA Romero Attn: Accounting, [place], [address], [facility] 11/25/2023 16:23:55 Date Recorded Respiratory rate Body height Body mass index (BMI) Body weight Oxygen saturation Oxygen saturation in Arterial blood by Pulse oximetry Heart rate Systolic And Diastolic Provider Name and Address Organization Details Last Updated DateTime 4 20 /min 157.48 cm 35.2 kg/m2 43522.1 7 g 99 % 99 % 67 /min 132/78 mm[Hg] Elder Barnes MA [facility] 4 15:48:10 Date Recorded Systolic And Diastolic Provider Name and Address Organization Details Last Updated DateTime 03/28/2025 140/80 mm[Hg] AMANDA Romero Attn: Accounting,[address] [facility], [place], [address], [facility] 04/05/2025 22:04:30 Date Recorded Body height Body mass index (BMI) Body weight Respiratory rate Oxygen saturation Oxygen saturation in Arterial blood by Pulse oximetry Heart rate Systolic And Diastolic Provider Name and Address Organization Details Last Updated DateTime 5 157.48 cm 25.6 kg/m2 35649.2 1 g 18 /min 98 % 98 % 74 /min 146/82 mm[Hg] Elder Barnes MA [facility] 5 17:28:11 Social History Question Answer Notes LastModified by [employer] ion Details LastModified Time Tobacco Smoking Status Never Smoker Elder Barnes MA null, [facility] 11/25/2023 15:44:34 Do You Have An Advance Directive? No Information not available 11/25/2023 Are You Blind Or Do You Have Difficulty Seeing? No Glasses Information not available 11/25/2023 What Is Your Level Of Caffeine Consumption? Moderate Coffee Information not available 11/25/2023 In The 14 Days Before Symptom Onset, Have You Had Close Contact With A Laboratory-confir med COVID-19 While That Case Was Ill? No Information not available 11/25/2023 In The 14 Days Before Symptom Onset, Have You Had Close Contact With A Person Who Is Under Investigation For COVID-19 While That Person Was Ill? No Information not available 11/25/2023 Have You Been To An Area Known To Be High Risk For COVID-19? No Information not available 11/25/2023 Are You Deaf Or Do You Have Serious Difficulty Hearing? No Information not available 11/25/2023 What Type Of Diet Are You Following? REGULAR Information not available 11/25/2023 Are There Any Guns Present In Your Home? No Information not available 11/25/2023 What Was The Date Of Your Most Recent Tobacco Screening? 03/28/2025 Information not available 03/28/2025 Do You Use Your Seat Belt Or Car Seat Routinely? Yes Information not available 11/25/2023 Do You Have Smoke And Carbon Monoxide Detectors In Your Home? Yes Information not available 11/25/2023 Do You Use Sunscreen Routinely? Yes Information not available 11/25/2023 Has Tobacco Cessation Counseling Been Provided? Yes Information not available 11/25/2023 On What Date Was Tobacco Cessation Counseling Provided? 03/28/2025 Information not available 03/28/2025 Sex: Female Functional Status Question Answer Note LastModified by Organizat ion Details LastModified Time Do you use any illicit or recreational drugs? No Information not available 11/25/2023 Do you or have you ever used any other forms of tobacco or nicotine? No Information not available 11/25/2023 What is your level of alcohol consumption? None Information not available 11/25/2023 Are you able to care for yourself independently? Yes Information not available 11/25/2023 What is your exercise level? None Information not available 11/25/2023 Mental Status None recorded. Family History Relationship Description Onset Age of this Age Resolved Age Notes LastModified by Organization Details LastModified Time Mother Dementia tcarterma Not availabl e 11/25/2023 15:52:09 Mother Disorder of thyroid gland tcarterma Not available 2023 15:52:22 Mother Hypercholest erolemia tcarterma Not available 2023 15:52:38 Father Diabetes mellitus tcarterma Not available 2023 15:52:16 Father Hypertensive disorder tcarterma Not available 2023 15:52:33 Medical History Condition Response Coronary Artery Disease N Other N Atrial Fibrillation N High Blood Pressure N Thyroid Problems N Kidney or Bladder Problems N Depression N COPD N Blood Clots N GI Problems N Skin Problems N Anemia N Heart Attack (OR) N Diabetes N Anxiety Disorder N Muscle, Joint, or Bone Problems N Seizures/Epilepsy N Acid Reflux (GERD) Y Cancer Y Stroke N Allergies Y Asthma N High Cholesterol N Hepatitis N Liver Disease N Headaches N Osteoporosis N Heart Failure N Gynecological History Statement/Question Response Menses Monthly N Current Control Method None Obstetrics History GPAL:G 2 P 1 0 0 1 Type Value Full Term 1 Induced 0 Spontaneous 0 Premature 0 Living 1 Total 2 Past Encounters Encounter ID Performer Location Encounter Start Date Encounter Closed Date Diagnosis/Indication Diagnosis SNOMED-CT Code Diagnosis ICD10 Code Diagnosis IMO Codes Diagnosis Note [id number] Sylvain Root MD [facility] [employer] [address] [place] [address] 11/25/2023 15:16:11 11/25/2023 16:50:43 Adult health examination 525242938 Z00.01 annual exam completed. History of malignant melanoma of the skin 7821512547 08 Z85.820 hx reported. Mixed hyperlipidemia 267 782924 E78.2 diet controlled . pt is not on medication . Graves' disease 80284520 4 E05.00 due for updated labs and referral back to Endocrine. she is on methimazol e 5mg daily. Pain of mu ltiple joints 88244932 M25.50 due for RF, ESR, CRP , ARIE panel and CCP ab Long-term drug therapy 126096334 Z79.899 CBC and CMP due Benign ess ential hypertension 0058167 I10 BP is elevated today. patient has not been seen in over a year and doesn't recall hx of elevation. pt will check home blood pressures on home cuff and report back results. no later than 14 days from now. pt will send portal message to provider. Body mass index 30+ - obesity 483321696 Z68.35 bmi 35.2 Obesity 294940320 E66.9 discussed healthy diet, exercise, controllin g carbohydra delbert and added sugars in the diet [id number] Sylvain Root MD [facility] [employer] [address] [place] [address] 10/28/2024 14:33:52 10/28/2024 16:24:46 Overweight in adulthood with body mass index of 25 or more but less than 30 304112164 E66.3 Z68.26 [id number] discussed healthy diet, exercise, controllin g carbohydra delbert and added sugars in the diet Adult [facility] th examination 171400310 Z00.01 annual exam completed. Benign ess ential hypertension 7268068 I10 140/80 borderline control today with hypertensi on. Continue losartan 25 mg daily we discussed we may need to increase to 50 mg but are encouragin g healthy diet modificati ons decreasing sodium and encouragin g weight loss to help lower blood pressure. History of malignant melanoma of the skin 9161360046 08 Z85.820 hx reported. Mixed hyperlipidemia 267 007687 E78.2 diet controlled . pt is not on medication . Graves' disease 80698835 4 E05.00 History noted. Long-term drug therapy 985345324 Z79.899 Patient's labs are up-to-date with endocrinol jeanette that is managing Pain of ri ght knee joint 2882663299 21834 M25.561 445779 Check a plain film x-ray of the right knee Paresthesia of hand 3090 12150 R20.0 R20.2 [id number] Refer for nerve conduction study of bilateral upper extremitie s for complaint of numbness and tingling on review of systems [id number] Sylvain Root MD [facility] - Daily [place] [address] [place] [address] 03/28/2025 17:19:23 03/29/2025 11:06:26 Overweight in adulthood with body mass index of 25 or more but less than 30 [id number] E66.3 Z68.25 [id number] discussed healthy diet, exercise, controllin g carbohydra delbert and added sugars in the diet Benign ess ential hypertension 7131133 I10 Restart losartan 25 mg daily for blood pressure management borderline today 140/80 with increased pain causing some likely elevation Right uppe r quadrant pain [id number] R10.11 [id number] Send for stat ultrasound the gallbladde r tomorrow morning rule out acute cholecysti tis with a history of sludge. She has been on Zepbound therapy and has lost quite a bit of weight in the past year this will contribute to causing biliary dysfunctio n. Biliary sludge [id number] K82.8 [id number] Longstandi ng history of gallbladde r sludge reported over 10 years ago Health Concerns Section Related Observation LastModified by Organization Anny smith LastModified Time None Recorded Concern Status LastModified by Organization Details LastModified Time None Recorded Advance Directives Directive N: Payers Insurance Date Sequence Insurance Name Policy Number Policy Machado Covered Member ID Machado Member ID Guarantor Name 03/28/2025 1 [facility] [id number] Damari Doyle [id number] Damari Doyle 04/06/2025 1 [employer] [id number] Damari Doyle [id number] Damari Doyle Notes Date Note Type Note Provider Name and Address Organization Details Recorded Time 4 text/html HyperlipidemiaReported by Patientpt has mixed hyperlipidemia hx. diet controlled. due for labs. 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 Hughes of Endocrine. Hx grave's disease.Hx reported of melanoma recently and following with Derm. AMANDA Romero Attn: Accounting,[address] [facility], [place], [address], [facility] [place] [facility] 12/08/2023 08:10:23 5 text/html KneeReported by PatientHPIFor location, patient reportsright. For quality, patient reportsaching,dull, anddeep. For severity, patient reportsmoderate. For duration, patient reports___ weeks. For context, patient reportscannot identify. For alleviating factors, patient reportsnothing helps. For aggravating factors, patient reportsstanding,twisting,be nding/squatting,pushing/pul ling,upstairs, anddownstairs. For previous surgery, patient reportsnone. For prior imaging, patient reportsnone. For previous injections, patient reportsnone. For previous pt, patient reportsnone. HyperlipidemiaReported by Patientpt has mixed hyperlipidemia hx. diet controlled. due for labs. 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 Hughes of Endocrine. Hx grave's disease.Hx reported of melanoma recently and following with Derm. Patient also reports her hands are having a lot of numbness it can can occur at bedtime but also can occur throughout the day at times. It is both hands. AMANDA Romero Attn: Accounting,[address] [facility], [place], [address], [facility] 11/14/2024 12:12:08 5 text/html Abdominal PainReported by PatientAbdominal PainFor quality, patient reportspain,cramping,dull, andsharp. For associated symptoms, patient reportsnauseabut reportsno fever,no chills, andno blood in the urine. For location, patient reportsruqandradiating (to the back). For severity, patient reportsmoderate. For duration, patient reportsintermittent. For onset/timing, patient reportswax/wane. For modifying factors, patient reportsnothing gives relief. For other, patient reportsdenies possible . For context, (history of gallbladder sludge many years ago).Pt c/o of sharp R back pain/ shoulder blade and stomach pain states that she notices when she breaths it hurts more, Pt states that it started yesterday. States that she has had this happen before states that it kind of comes in waves. AMANDA Romero Attn: Accounting,[address] [facility], [place], [address], [facility] SI 04/05/2025 22:06:46 OBGyn Episode No OBEpisode recorded.
--- OUTSIDE RECORDS SUMMARY | 2025-05-20 01:31 | XMS_ITS | Clinical Summary ---
Author Organization [facility] [employer] Address [address] [place] [address] Care Team Providers Care Senior Construction Manager Name Role Phone Cindy Hughes MD Unavailable [phone] Elsie Wright OD Unavailable [phone] Source Comments [facility],non-owned Affiliates and Associated Physician Practices is amultiple site organization consisting of ambulatory clinics and hospital sitesin [place], [place], [place] and [place]. This disclosure is being madepursuant to the Care Everywhere program and may not contain all information available regarding this patient. Last updated 18.[facility] Allergies Active Allergy Reactions Criticality Noted [...] Active Cholecalcifero l (VITAMIN D3) 1.25 MG (95346 UT) capsule vitamin D3 2,000 unit-folic acid [...] on file Legal Sex Female 11:42 AM TAX CREDIT LEASING CONSULTANT Gender Identity Not on file Sexual Orientation [...] st Contact Info) Description 09/07/2025 10:30 AM TAX CREDIT LEASING CONSULTANT Office Visit [facility] - Ophthalmology [address] [place] [address] Nadine Newton MD [address] [facility] [place] [address] Health Maintenance Due Date Last [...] 50+ (1 of 2 - PCV) 11/09/1987 PAP with HPV 1998 ZOSTER VACCINE (1 of 2) 2018 Cervical Cancer Screening 07/02/2020 PAP SMEAR 07/02/2020 07/02/2017, 12/19/2005 DTAP/TDAP/TD VACCINES (2 - T d or Tdap) 01/25/2021 01/25/2011 DEPRESSION SCREENING 07/07/2024 COVID-19 VACCINE (1 - 2024-2 6 season) 2025 INFLUENZA VACCINE (#1) 2025 , 03/03/2009 HIB VACCINE Aged Out No longer [...] patient's age to complete this topic Insurance [employer] Care Teams Senior Construction Manager Relationship Specialty Start Date End Date Cindy Hughes MD [address] [place] [id number] Endocrinology 11/03/19 Elsie Wright OD [address] [place] [address] Strategic Debriefing Officer 11/03/19"
--- OUTSIDE RECORDS SUMMARY | 2025-05-20 01:31 | XMS_ITS | Clinical Summary ---
Author Organization [facility] Address [address] [place] [address] Care Team Providers Care Special Events Coordinator Name Role Phone Unavailable Primary Care Provider [...] patient's age to complete this topic Insurance [employer] [facility]
--- OUTSIDE RECORDS SUMMARY | 2025-05-20 01:31 | XMS_ITS | Clinical Summary ---
Author Organization [facility] Address [address] [place] [address] Care Team Providers Care Desizing Machine Operator Name Role Phone Kelsie Krause Primary Care [...] on file Legal Sex Female 10:17 AM PNEUMATIC JACKETER Gender Identity Not on file Sexual Orientation Not on file Last Filed Vital Signs Vital Sign Reading Time Taken Comments Blood Pressure 134/86 08/12/2017 1:30 PM PNEUMATIC JACKETER Pulse 75 08/12/2017 1:30 PM PNEUMATIC JACKETER Temperature - - Respiratory Rate - - Oxygen Saturation 97% 08/12/2017 1:30 PM PNEUMATIC JACKETER Inhaled Oxygen Concentration - - Weight 66.2 [...] Influenza Vaccine (#1) 2025 04/06/2013, 2008 Insurance [employer] [facility] [place] [id number] [facility] [id number] Care Teams Desizing Machine Operator Relationship Specialty Start Date End Date Kelsie Krause PA PCP - General Physician Air Bag Builder 05/29/20
--- OUTSIDE RECORDS SUMMARY | 2025-05-20 01:32 | XMS_ITS | Encounter Summary ---
Author Organization [facility] Address [address] [facility] [place] [address] Care Team Providers Care High Man Name Role Phone Cindy Hughes MD Unavailable [phone] Elsie Wright OD Unavailable [phone] Encounter Details Date Type Department Care Team (Late Contact Info) Description 05/13/2019 Lab Requisition [facility] [address] [place] [address] Eleonora Mayes DO [address] [place] [address] [address] [place] [address] Social History Tobacco Use Types Packs/Day Years Used Date Smoking Tobacco: Never Smokeless Tobacco: Never Comments No Sex and Gender Information Value Date Recorded Sex Assigned at Not on file Legal Sex Female 11:42 AM HOOKMAN Gender Identity Not on file Sexual Orientation Not on file documented as of this encounter Plan of Treatment Upcoming Encounters Date Type Department Care Team (Late Contact Info) Description 09/07/2025 10:30 AM HOOKMAN Office Visit [facility] - Ophthalmology [address] [place] [phone] Nadine Newton MD [address] [place] [address] [place] [phone] documented as of this encounter Procedures Procedure Name Priority Date/Time Associated Diagnosis Comments DERMATOPATHOLOGY Routine 05/12/2019 12:0 0 AM HOOKMAN documented in this encounter Results * DERMATOPATHOLOGY (05/12/2019 12:00 AM HOOKMAN) Case Report Dermatopathology Report Case: [id number] Authorizing Provider: Eleonora Mayes DO Collected: 05/12/2019 12:00 AM Ordering Location: [facility] Lab Received: 05/13/2019 07:22 AM Pathologist: Karyn Carmona MD Specimens: A) - Skin, right cheek B) - Skin, right FA 4:04 PM [facility] DERMATOPATHOLOGY LABORATORY Final Diagnosis Specimen A. 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 B: LSC R/O NMSC. 4:04 PM [facility] DERMATOPATHOLOGY LABORATORY Gross Description Specimen A: Received is one formalin filled container labeled with the patient's name and designated right cheek. The specimen consists of a shave measuring [id number]. Jar 0. Specimen B: Received is one formalin filled container labeled with the patient's name and designated right FA. The specimen consists of a shave measuring [id number]. Jar 0. 4:04 PM [facility] DERMATOPATHOLOGY LABORATORY Microscopic Description Specimen A. SKIN, right cheek: The epidermis is eroded. There are nests of cytologically bland melanocytes within the dermis that mature with depth. Specimen B. SKIN, right FA: Sections show acanthosis, hypergranulosis, and hyperkeratosis. The papillary dermis is fibrotic. 4:04 PM [facility] DERMATOPATHOLOGY LABORATORY Disclaimer An external and internal positive and negative controls are appropriate for the histochemical, immunohistochemical and immunofluorescence stain(s) in this case (if any), except where stated explicitly. The performance characteristics of the stain(s) cited in this report were developed and its performance characteristic determined by the Dermatopathology Laboratory at [facility], directed by Dr. Phani Carmona. These tests need not be, and therefore are not, approved by the [place] Food and Drug Administration. The tests are used for clinical purposes. Billing Codes Specimen Charges Stain Charges 24818 74416 1 1 9 4:04 PM [facility] Embedded Images 9 4:04 PM [facility] Pathology/Cytology TISSUE SPECIMEN FROM SKIN / Unknown 05/12/2019 05/13/2019 7:22 AM HOOKMAN Miscellaneous samples (specimen) TISSUE SPECIMEN FROM SKIN / Unknown 05/12/2019 05/13/2019 7:22 AM HOOKMAN Eleonora Mayes DO LAB - PATHOLOGY/CYTOLOGY ORDERABLES Final Result DERMATOPATHOLOGY LABORATORY [facility] - Department of Dermatology [address] [place] [address] [address] [phone] documented in this encounter Visit Diagnoses Not on filedocumented in this encounter Care Teams High Man Relationship Specialty Start Date End Date Cindy Hughes MD [address] [place] [phone] Endocrinology 11/03/19 Elsie Wright OD [address] [place] [address] Pointer Helper 11/03/19 documented as of this encounter
--- OUTSIDE RECORDS SUMMARY | 2025-05-20 01:32 | XMS_ITS | Patient Health Record ---
Author Organization [facility] Address [address] [place], [place] [address] Care Team Providers Care Associate Programmer Analyst Name Role Phone Cindy Hughes Unavailable [phone] Migration, Provider Unavailable Unavailable Allergies Allergen (clinical drug ingredient) Drug/Non Drug Allergy documented on EMR Reaction Allergy Type Onset Date Status erythromycin Erythromycin Unknown Drug Allergy A ctive penicillin G Penicillin G Potassium Unknown Drug Allergy Active Results Component Value Reference Range Flag Notes HEMOGLOBIN A1c Reviewed date:07/15/2024 05:22:04 PM Interpretation: Performing Lab:[facility], [address], [place], [address] Silvino Bermudez Notes/Report: FASTING:YES FASTING: YES For [...] diagnosis of diabetes in children. According to [place] Diabetes Association (ADA) guidelines, hemoglobin A1c <7.0% represents optimal control in non- diabetic patients. Different metrics may apply to specific patient populations. Standards of Medical Care in Diabetes(ADA). HEMOGLOBIN A1c 5.5 <5.7 % of total Hgb N INSULIN Reviewed date:07/15/2024 05:22:04 PM Interpretation: Performing Lab:[facility], [address] [place], [address] Silvino Bermudez MD Notes/Report: FASTING:YES FASTING: YES Reference Range < or = 18.4 Risk: Optimal < or = 18.4 Moderate NA High >18.4 Adult cardiovascular event risk category cut points (optimal, moderate, high) are based on Insulin Reference Interval studies performed at [facility] in [facility]. INSULIN 25.0 H CBC (INCLUDES DIFF/PLT) Reviewed date:07/15/2024 05:22:04 PM Interpretation: Performing Lab:[facility] MargaritaNury, [address] [place], [address] Silvino Bermudez MD Notes/Report: FASTING:YES FASTING: YES [...] 11.1 7.5-12.5 fL N ABSOLUTE NEUTROPHILS 4521 5986-5734 cells/uL N ABSOLUTE LYMPHOCYTES 6604 564-3417 cells/uL N ABSOLUTE MONOCYTES 323 200-950 cells/uL N ABSOLUTE EOSINOPHILS 73 15-500 cells/uL N ABSOLUTE BASOPHILS 40 0-200 cells/uL N NEUTROPHILS 68.5 N LYMPHOCYTES 24.9 N MONOCYTES 4.9 N EOSINOPHILS 1.1 N BASOPHILS 0.6 N VITAMIN B12/FOLATE, SERUM PA MARITZA Reviewed date:07/15/2024 05:22:04 PM Interpretation: Performing Lab:[facility], [address] [place], [address] Silvino Bermudez MD Notes/Report: FASTING:YES FASTING: YES Reference Range Low: <3.4 Borderline: 3.4-5.4 Normal: >5.4 VITAMIN B12 249 731-3732 pg/mL N FOLATE, SERUM 6.8 N LIPID PANEL Reviewed date:07/15/2024 05:22:04 PM Interpretation: Performing Lab:[facility], [address] [place]án[place], [address] Silvino Bermudez MD Notes/Report: FASTING:YES FASTING: YES [...] LDL-C. Johnnie SS et al. MARICARMEN. 2013;310(19): 6609-7559 (http://education.Earnix/faq/URA856) For patients with diabetes plus 1 major [...] date:07/15/2024 05:22:04 PM Interpretation: Performing Lab:[facility], [address], [address] Silvino Bermudez MD Notes/Report: FASTING:YES FASTING: YES T4, FREE 1.2 0.8-1.8 ng/dL N TSH Reviewed date:07/15/2024 05:22:04 PM Interpretation: Performing Lab:[facility]IAS, [address] [place], [address] Silvino Bermudez MD Notes/Report: FASTING:YES FASTING: YES Reference Range > or = 20 Years 0.40-4.50 Ranges First trimester 0.26-2.66 Second trimester 0.55-2.73 Third trimester 0.43-2.91 TSH 0.71 N IRON AND TOTAL IRON BINDING CAPACITY (7573) Reviewed date:10/17/2024 12:28:43 PM Interpretation: Performing Lab:[facility] Margarita-Hbjiwr8[address], KcevpbAC[address] Silvino Bermudez MD Notes/Report: FASTING:YES FASTING: YES IRON, TOTAL 53 45-160 mcg/dL N IRON BINDING CAPACITY 321 250-450 mc g/dL (calc) N % SATURATION 17 16-45 % (calc) N .LIPID PANEL, STANDARD (5180 ) Reviewed date:10/17/2024 12:28:43 PM Interpretation: Performing Lab:[facility] [place]phanie [place] [address] [address] RvokrqxNA[address] Silvino Bermudez Notes/Report: FASTING:YES FASTING: YES CHOLESTEROL, [...] LDL-C. Johnnie SS et al. MARICARMEN. 2013;310(19): 5222-1518 (http://education.WebLinc.[employer]/faq/ZKS771) CHOL/HDLC RATIO 3.2 <5.0 (calc) N NON HDL CHOLESTEROL 120 <130 mg/dL (calc) N For patients with diabetes plus 1 major ASCVD risk factor, treating to a non-HDL-C goal of <100 mg/dL (LDL-C of <70 mg/dL) is considered a therapeutic option. .COMPREHENSIVE METABOLIC SHINE EL (30[address]) [facility] Reviewed date:10/17/2024 12:28:43 PM Interpretation: Performing Lab:[facility] Marg[facility]itaN[facility] NetworkGbuyd[address] PjulrmiPJ[address] Silvino Bermudez Notes/Report: FASTING:YES FASTING: YES GLUCOSE 94 65-99 mg/dL N Fasting reference interval UREA NITROGEN (BUN) 15 7-25 mg/dL N CREATININE 0.60 0.50-1.03 mg/dL N EGFR 106 > OR = 60 mL/min/1.73m2 N BUN/CREATININE RATIO SEE NOTE: 12-26 (calc) Not Reported: BUN and Creatinine are [...] ALT 20 6-29 U/L N T3, FREE Reviewed date:07/15/2024 05:22:04 PM Interpretation: Performing Lab:HARRIS, [facility]-Chris, [address] [place], [address] Silvino Bermudez MD Notes/Report: FASTING:YES FASTING: YES T3, FREE 3.1 2.3-4.2 pg/mL N COMPREHENSIVE METABOLIC PANE L Reviewed date:07/15/2024 05:22:04 PM Interpretation: Performing Lab:[facility] Marg[facility]itaN[facility], [address] [place], [address] Silvino Bermudez MD Notes/Report: FASTING:YES FASTING: YES Fasting reference interval Not Reported: BUN and Creatinine are within reference range. GLUCOSE 96 65-99 mg/dL N UREA NITROGEN (BUN) 18 7-25 mg/dL N CREATININE 0.59 0.50-1.03 mg/dL N EGFR 106 > OR = 60 mL/min/1.73m2 N BUN/CREATININE RATIO SEE NOTE: 12-26 (calc) SODIUM 142 135-146 mmol/L N POTASSIUM [...] U/L N ALT 21 6-29 U/L N .CBC (INCLUDES DIFF/PLT) (63 99) Reviewed date:10/17/2024 12:28:43 PM Interpretation: Performing Lab:[facility] MargaritaN[facility] NetworkZbhme[address] [facility] Children'sKohkfxwWI[address] [facility] Notes/Report: FASTING:YES FASTING: YES WHITE BLOOD CELL [...] 11.8 7.5-12.5 fL N ABSOLUTE NEUTROPHILS 4536 6834-9579 cells/uL N ABSOLUTE LYMPHOCYTES 1635 044-4341 cells/uL N ABSOLUTE MONOCYTES 333 200-950 cells/uL N ABSOLUTE EOSINOPHILS 68 15-500 cells/uL N ABSOLUTE BASOPHILS 27 0-200 cells/uL N NEUTROPHILS 66.7 N LYMPHOCYTES 27.0 N MONOCYTES 4.9 N EOSINOPHILS 1.0 N BASOPHILS 0.4 N .HEMOGLOBIN A1c (496) Reviewed date:10/17/2024 12:28:43 PM Interpretation: Performing Lab:AL[facility]E [facility]aritaN[facility] NetworkLilnn[address] TgpyfinOW[address] Silvino Bermudez Notes/Report: FASTING:YES FASTING: YES HEMOGLOBIN [...] diagnosis of diabetes in children. According to [place] Diabetes Association (ADA) guidelines, hemoglobin A1c <7.0% represents optimal control in non- diabetic patients. Different metrics may apply to specific patient populations. Standards of Medical Care in Diabetes(ADA). INSULIN (561) Reviewed date:10/17/2024 12:28:43 PM Interpretation: Performing Lab:HARRIS MeetingSprout Sean-Yvsxdh[address] Silvino Bermudez MD Notes/Report: FASTING:YES FASTING: YES INSULIN 14.8 N Reference Range < or = 18.4 Risk: Optimal < or = 18.4 Moderate NA High >18.4 Adult cardiovascular event risk category cut points (optimal, moderate, high) are based on Insulin Reference Interval studies performed at [facility] in 2021. VITAMIN B12/FOLATE, SERUM PA MARITZA (9829) Reviewed date:10/17/2024 12:28:43 PM Interpretation: Performing Lab:[facility] IGLESIASa[address] [place]ts[place]KS[address] Silvino Bermudez MD Notes/Report: FASTING:YES FASTING: YES VITAMIN B12 682 440-9491 pg/mL N FOLATE, SERUM 6.6 N Reference Range Low: <3.4 Borderline: 3.4-5.4 Normal: >5.4 T4, FREE (866) Reviewed date:10/17/2024 12:28:43 PM Interpretation: Performing Lab:[facility]itaN[facility] NetworkLtlnv36613 [address] NcmcnbkHB[address] Silvino Bermudez Notes/Report: FASTING:YES FASTING: YES T4, FREE 1.3 0.8-1.8 ng/dL N TSH (899) Reviewed date:10/17/2024 12:28:43 PM Interpretation: Performing Lab:[facility] JENKINSNortheast [facility] Health NetworkJlhzr[address] [facility] Children'sWopewgkPX[address] Silvino Bermudez Notes/Report: FASTING:YES FASTING: YES TSH 0.51 N Reference Range > or = 20 Years 0.40-4.50 Ranges First trimester 0.26-2.66 Second trimester 0.55-2.73 Third trimester 0.43-2.91 T3, FREE (55105) Reviewed date:10/17/2024 12:28:43 PM Interpretation: Performing Lab:[facility] IGLES[facility]AS-Leonardo Rivera, NggffqPR[address] Silvino Bermudez MD Notes/Report: FASTING:YES FASTING: YES T3, FREE 3.2 2.3-4.2 pg/mL N .VITAMIN D,25-OH,TOTAL,IA (1 7306) Reviewed date:10/17/2024 12:28:43 PM Interpretation: Performing Lab:[facility] IGLES[facility]AS-Axbkaa55781Azul Rivera, EwwtnfUM[address] Silvino Bermudez MD Notes/Report: FASTING:YES FASTING: YES VITAMIN D,25-OH,TOTAL,IA 33 30-100 ng/mL N Vitamin D Status 25-OH Vitamin D: Deficiency: <20 ng/mL Insufficiency: 20 - 29 ng/mL Optimal: > or = 30 ng/mL For 25-OH Vitamin D testing on patients on D2-supplementation and patients for whom quantitation of D2 and D3 fractions is required, the QuestAssureD(TM) 25-OH VIT D, (D2,D3), LC/MS/MS is recommended: order code 91305 (patients >2yrs). See Note 1 Note 1 For additional information, please refer to http://education.Tarsus Medical/faq/RYC209 (This link is being provided for informational/ educational purposes only.) .COMPREHENSIVE METABOLIC SHINE EL ([address]) [facility] Reviewed date:02/24/2025 08:36:46 PM Interpretation: Performing Lab:[facility]ita-Meuxle96421Daniel Rivera, XzdfntRX[address] Silvino Bermudez MD Notes/Report: FASTING:YES FASTING: YES [...] Reviewed date:02/24/2025 08:36:46 PM Interpretation: Performing Lab:KS, [facility]-Iwraqg95[address] [facility], QxleskGS[address] Silvino Bermudez MD Notes/Report: FASTING:YES FASTING: YES [...] LDL-C. Johnnie DESAI et al. MARICARMEN. 2013;310(19): 3965-2181 (http://Xintu Shuju.Traffio/faq/XSX748) CHOL/HDLC RATIO 3.3 <5.0 (calc) N NON HDL CHOLESTEROL 121 <130 mg/dL (calc) N For patients with diabetes plus 1 major ASCVD risk factor, treating to a non-HDL-C goal of <100 mg/dL (LDL-C of <70 mg/dL) is considered a therapeutic option. .CBC (INCLUDES DIFF/PLT) (63 99) Reviewed date:02/24/2025 08:36:46 PM Interpretation: Performing Lab:[facility] Marg[facility]-Fsipvm93583 [address] [place]tsaKS[address] Silvino Bermudez MD Notes/Report: FASTING:YES FASTING: YES [...] 10.6 7.5-12.5 fL N ABSOLUTE NEUTROPHILS 4238 4557-6561 cells/uL N ABSOLUTE LYMPHOCYTES 4949 391-2044 cells/uL N ABSOLUTE MONOCYTES 338 200-950 cells/uL N ABSOLUTE EOSINOPHILS 78 15-500 cells/uL N ABSOLUTE BASOPHILS 52 0-200 cells/uL N NEUTROPHILS 65.2 N LYMPHOCYTES 27.6 N MONOCYTES 5.2 N EOSINOPHILS 1.2 N BASOPHILS 0.8 N T4, FREE (866) Reviewed date:02/24/2025 08:36:46 PM Interpretation: Performing Lab:[facility] MeetingSprout Sean-Atmysk77816 Kevin Rivera VvlcsoOF[address] Silvino Bermudez MD Notes/Report: FASTING:YES FASTING: YES T4, FREE 1.3 0.8-1.8 ng/dL N TSH (899) Reviewed date:02/24/2025 08:36:46 PM Interpretation: Performing Lab:[facility] MeetingSprout Sean-Kyytio[address] [address] [place]tsaKS[address] Silvino Bermudez MD Notes/Report: FASTING:YES FASTING: YES TSH 0.94 0.40-4.50 mIU/L N T3, FREE (53043) Reviewed date:02/24/2025 08:36:46 PM Interpretation: Performing Lab:[facility] IGLESIAS-Fnvguw34900 [address] ButtsaKS[address] Silvino Bermudez MD Notes/Report: FASTING:YES FASTING: YES T3, FREE 3.4 2.3-4.2 pg/mL N Reason For Referral No Information Medications Medication SIG (Take, Route, Frequency, Duration) Notes Start Date End Date Status Losartan Potassium 50 MG Tablet 1 tab(s) orally once a day; Duration: 90 days 03/22/2024 Brigitte pollard Zepbound 7.5 MG/0.5ML Solution Auto-injector 0.5 mL Subcutaneous weekly; Duration: 90 days 10/27/2024 Active Problems Problem Type SNOMED Code ICD Code Onset Dates Problem Status W/U Status Risk Notes Problem 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 Problem Autoimmune thyroiditis (56909684) Autoimmune thyroiditis (E06.3) Active confirmed Problem Overweight (064825998) Overweight (E66.3) Active confirmed Problem Obesity (295716103) Obesity, unspecified (E66.9) Active confirmed Problem Pure hyperglyceridemia (674218849) Pure hyperglyceridemia (E78.1) Active confirmed Problem Essential hypertension (57760958) Essential (primary) hypertension (I10) Active confirmed Problem Goiter (9817599) Goiter (E04.9) Active confirme d Vital Signs Heart Rate 70 /min 03/15/2025 Respiratory Rate 12 /min 10/27/2024 Oximetry 98 % 03/15/2025 Height-cm 157.48 cm 03/15/2025 Blood pressure diastolic 75 mm Hg 03/15/2025 Weight-kg 63.96 kg 03/15/2025 Height 62 in 03/15/2025 Blood pressure systolic 148 mm Hg 03/15/2025 Weight 141 lbs 03/15/2025 BMI 25.79 kg/m2 03/15/2025 Encounters Encounter Location Date Provider Diagnosis [facility] De [facility] [place], [place] [id number] 05/22/2024 Provider Migration Essential (primary) hypertension I10 ; Prediabetes R73.03 and Obesity, unspecified E66.[address] Hughes [address] [place] [address] 05/28/2024 Cindy Hughes Thyrotoxicosis with diffuse goiter without thyrotoxic crisis or storm E05.00 ; Essential (primary) hypertension I10 and Obesity, unspecified E66.[address] Hughes [address] [place] [address] 07/19/2024 Cindy Hughes Obesity, unspecified E66.9 ; Essential (primary) hypertension I10 ; Dietary counseling and surveillance Z71.3 ; Pure hyperglyceridemia E78.1 and Autoimmune thyroiditis E06.[address] Hughes [address] [place] [address] 10/27/2024 Cindy Hughes Autoimmune thyroidit is E06.3 ; Pure hyperglyceridemia E78.1 ; Essential (primary) hypertension I10 ; Overweight E66.3 and Obesity, unspecified E66.[address] Hughes [address] [place] [address] 03/15/2025 Cindy Hughes Autoimmune thyroidit is E06.3 ; Overweight E66.3 ; Pure hyperglyceridemia E78.1 ; Essential (primary) hypertension I10 ; Goiter E04.9 and Dietary counseling and surveillance Z71.[address] Hughes [address] [place] [address] 11/17/2024 Cindy CLARK [facility] [address] [place] [address] 11/22/2024 Cindy CLARK [facility] [address] [place] [address] 01/31/2025 Cindy CLARK [facility] [address] [place] [address] 03/31/2025 Cindy Hughes [address] [place] [address] 05/17/2025 Cindy Wood Obesity, unspecified E66.[address] Hughes [address] [place] [address] 11/10/2024 Cindy Wood Obesity, unspecified E66.[address] Hughes [address] [place] [address] 04/11/2025 Cindy Wood Assessments Encounter Date Diagnosis (ICD Code) Assessment [...] - E06.3) 03/15/2025 Overweight (ICD-10 - E66.3) 05/17/2025 Obesity, unspecified (ICD-10 - E66.9) 03/15/2025 Pure hyperglyceridemia (ICD-10 - E78.1) 10/27/2024 [...] Send lab work orders to patient's email ([email or web address]) and have them completed before the next appointment. Spent 25 minutes preparing to see the patient (ex review of tests/chart), obtaining and / or reviewing separately obtained history, performing a medically appropriate examination and/or evaluation, counseling and educating the patient/family/caregi alexis, ordering medications, tests, or procedures, referring and communicating with other health vocational childcare teacher, documenting clinical information in the electronic [...] fish oil supplementation with omega-3 fatty acids EohfqlauvetL6t is now well below prediabetes levels (5.5-5.7). Continue Zepbound and monitor blood sugar levels Encourage a well-balanced diet with fruits, veggies, and lean meats, avoiding processed foods and starches Vitamin B12 and Folic Acid LevelsLevels are within normal range. If fatigue occurs, consider a methylated B12 folic acid supplement Follow-up:Email new lab order to [email or web address] chedule follow-up appointment in 3-4 monthsCall if [...] procedures, referring and communicating with other health vocational childcare teacher, documenting clinical information in the electronic [...] indicating insufficiency- Recommend vitamin D supplementation of 2586-9378 IUs daily if not getting sufficient outdoor [...] procedures, referring and communicating with other health vocational childcare teacher, documenting clinical information in the electronic [...] control. Patient follows up annually with an director institution (Dr. Newton) in [place] for thyroid eye disease monitoring.Plan:- Continue current [...] procedures, referring and communicating with other health vocational childcare teacher, documenting clinical information in the electronic [...] Name Order Date *US HEAD AND NECK/THYROID [id number] 03/15/20 25 Insurance Providers Payer Name Payer Address Payer Phone Subscriber Number Group Number Insured Name Patient Relationship to Insured Coverage Start Date Coverage End Date [employer] [address] [place], [place] [phone] [id number] Damari Ventura Self - patient is the insured Medical (General) History Medical History History ICD Code GRAVES HYPERTHYROID Surgical History Surgery Date(Month/Year) DUSTIN 04/2023
--- OUTSIDE RECORDS SUMMARY | 2025-05-20 01:32 | XMS_ITS | Encounter Summary ---
Author Organization [facility] Address [address] [place] [address] Care Team Providers Care Bander And Cellophaner Helper Machine Name Role Phone Cindy Hughes MD Unavailable [phone] Elsie Wright OD Unavailable [phone] Encounter Details Date Type Department Care Team (Late Contact Info) Description 04/28/2023 Lab Requisition [facility] [address] [place] [phone] Sobia Rodriguez MD [address] [place] [address] [address] [place] [address] Social History Tobacco Use Types Packs/Day Years Used Date Smoking Tobacco: Never Smokeless Tobacco: Never Comments No Sex and Gender Information Value Date Recorded Sex Assigned at Not on file Legal Sex Female 11:42 AM TASSEL MAKER Gender Identity Not on file Sexual Orientation Not on file documented as of this encounter Plan of Treatment Upcoming Encounters Date Type Department Care Team ([facility] [place] Contact Info) Description 09/07/2025 10:30 AM TASSEL MAKER Office Visit [facility] - Ophthalmology [address] [place] [phone] Nadine Newton MD [address] [place] [address] [place] [address] [phone] (work) documented as of this encounter Procedures Procedure Name Priority Date/Time Associated Diagnosis Comments DERMATOPATHOLOGY Routine 04/28/2023 3:02 PM CDT documented in this encounter Results * DERMATOPATHOLOGY (04/28/2023 3:02 PM CDT) Case Report Dermatopathology Report Case: [id number] Authorizing Provider: Sobia Rodriguez MD Collected: 04/28/2023 03:02 PM Ordering Location: [facility] DermPath Lab Received: 04/29/2023 11:39 AM [...] characteristic determined by the Dermatopathology Laboratory at [facility], directed by Dr. Phani Carmona. These tests need not be, and therefore are not, approved by the [place] Food and Drug Administration. The tests are used for clinical purposes. Billing Codes Specimen Charges Stain Charges 26807 1 90370 1 3 8:42 AM CDT DERMATOPATHOLOGY LABORATORY Embedded Images 3 8:42 AM CDT DERMATOPATHOLOGY LABORATORY Pathology/Cytolo gy TISSUE SPECIMEN FROM SKIN / Unknown 04/28/2023 3:02 PM CDT 04/29/2023 11:39 AM CDT Sobia Rodriguez MD LAB - PATHOLOGY/CYTOLOGY ORD ERABLES Final Result DERMATOPATHOLOGY LABORATORY [facility] - Department of Dermatology [facility] Medicine [address] [place] [address], [address] [phone] documented in this encounter Visit Diagnoses Not on filedocumented in this encounter Care Teams Bander And Cellophaner Helper Machine Relationship Specialty Start Date End Date Cindy Hughes MD [address] [place] [address] Endocrinology 11/03/19 Elsie Wright OD [address] [place] [address] Telephone Maintenance Mechanic 11/03/19 documented as of this encounter
--- OUTSIDE RECORDS SUMMARY | 2025-05-20 01:32 | XMS_ITS | Encounter Summary ---
Author Organization [facility] Address [address] [place] [address] Care Team Providers Care Graphic Design Manager Name Role Phone Cindy Hughes MD Unavailable [phone] Elsie Wright OD Unavailable [phone] Encounter Details Date Type Department Care Team (Late Contact Info) Description 11/13/2023 Lab Requisition [facility] [address] [place] [phone] Sobia Rodriguez MD [address] [place] [address] 3 [place] [address] Social History Tobacco Use Types Packs/Day Years Used Date Smoking Tobacco: Never Smokeless Tobacco: Never Comments No Sex and Gender Information Value Date Recorded Sex Assigned at Not on file Legal Sex Female 11:42 AM REFERENCE ARCHIVIST Gender Identity Not on file Sexual Orientation Not on file documented as of this encounter Plan of Treatment Upcoming Encounters Date Type Department Care Team (Late Contact Info) Description 09/07/2025 10:30 AM REFERENCE ARCHIVIST Office Visit [facility] - Ophthalmology [address] [place] [phone] Nadine Newton MD [address] [place] [address] [place] [phone] documented as of this encounter Procedures Procedure Name Priority Date/Time Associated Diagnosis Comments DERMATOPATHOLOGY Routine 11/13/2023 10:3 9 AM CDT documented in this encounter Results * DERMATOPATHOLOGY (11/13/2023 10:39 AM CDT) Case Report Dermatopathology Report Case: [id number] Authorizing Provider: Sobia Rodriguez MD Collected: 11/13/2023 10:39 AM Ordering Location: [facility] - Received: 11/14/2023 09:56 AM DermPath Lab Pathologist: Zuleika Aguero MD Specimen: Skin, right cheek anterior 4:03 PM CDT DERMATOPATHOLOGY LABORATORY Final Diagnosis Specimen A. 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 Phani Carmona. These tests need not be, and therefore are not, approved by the [place] Food and Drug Administration. The tests are used for clinical purposes. Billing Codes Specimen Charges Stain Charges 66580 1 94160 00555 1 1 4 4:03 PM CDT DERMATOPATHOLOGY LABORATORY Embedded Images 4 4:03 PM CDT DERMATOPATHOLOGY LABORATORY Pathology/Cytolo gy TISSUE SPECIMEN FROM SKIN / Unknown 11/13/2023 10:39 AM CDT 11/14/2023 9:56 AM CDT Sobia Rodriguez MD LAB - PATHOLOGY/CYTOLOGY ORD ERABLES Final Result DERMATOPATHOLOGY LABORATORY [facility] - Department of Dermatology [facility] Medicine [address] [place] [address], [address] [phone] documented in this encounter Visit Diagnoses Not on filedocumented in this encounter Care Teams Graphic Design Manager Relationship Specialty Start Date End Date Cindy Hughes MD [address] [place] [address] Endocrinology 11/03/19 Elsie Wright OD [address] [place] [address] Help Desk Engineer 11/03/19 documented as of this encounter
--- OUTSIDE RECORDS SUMMARY | 2025-05-20 01:32 | XMS_ITS | Clinical Summary ---
Author Organization [facility] Address [address] [place] [id number] Care Team Providers Care Retail Security Professional Name Role Phone Unavailable Primary Care Provider Unavailabl e Social History Tobacco Use Types Packs/Day Years Used Date Smoking Tobacco: Never Assessed Comments Unknown Sex and Gender Information Value Date Recorded Sex Assigned at Not on file Legal Sex Female 8:35 AM MANAGEMENT TRAINER Gender Identity Not on file Sexual Orientation [...]
--- OUTSIDE RECORDS SUMMARY | 2025-05-20 01:32 | XMS_ITS | Encounter Summary ---
Author Organization [facility] Address [address] [place] [address] Care Team Providers Care Shank Boner Name Role Phone Cindy Hughes MD Unavailable [phone] Elsie Wright OD Unavailable [phone] Encounter Details Date Type Department Care Team (Late Contact Info) Description 05/19/2023 Lab Requisition [facility] [address] [place] [id number] Magui Marmolejo MD [address] [place] [address] Social History Tobacco Use Types Packs/Day Years Used Date Smoking Tobacco: Never Smokeless Tobacco: Never Comments No Sex and Gender Information Value Date Recorded Sex Assigned at Not on file Legal Sex Female 11:42 AM INDEPENDENT JEWELER Gender Identity Not on file Sexual Orientation Not on file documented as of this encounter Plan of Treatment Upcoming Encounters Date Type Department Care Team (Late Contact Info) Description 09/07/2025 10:30 AM INDEPENDENT JEWELER Office Visit [facility] - Ophthalmology [address] [place] [phone] Nadine Newton MD [address] [place] [address] [place] [address] [phone] (work) documented as of this encounter Procedures Procedure Name Priority Date/Time Associated Diagnosis Comments DERMATOPATHOLOGY Routine 05/19/2023 4:15 PM INDEPENDENT JEWELER documented in this encounter Results * DERMATOPATHOLOGY (05/19/2023 4:15 PM INDEPENDENT JEWELER) Case Report Dermatopathology Report Case: [id number] Authorizing Provider: Magui Marmolejo MD Collected: 05/19/2023 04:15 PM Ordering Location: [facility] DermPath Lab Received: 05/20/2023 03:29 PM Pathologist: Evelia Ragland MD Specimen: Skin, right lateral cheek 3 4:06 PM [facility]ERMAT[facility] Final Diagnosis Specimen A. SKIN, right lateral cheek: MELANOMA IN SITU (D03.39) NOT PRESENT AT MARGIN DERMAL SCAR (L90.5) (see microscopic description) 3 4:06 PM [facility] DERMATOPATH[facility] at [address] IN[employer] JEWELER Clinical History MIS,Bx Proven 3 4:06 PM [facility] Gross Description Specimen A: Received is one formalin filled container labeled with the patient's name and designated right lateral cheek.The specimen consists of an ellipse measuring 31h58i5 mm and is oriented with the suture/notch [...] - 4. Jar 0. 3 4:06 PM [facility]MAT[facility] Microscopic [...] to the skin surface. 3 4:06 PM [facility] DERMATOPATHOLOGY LABORATORY Disclaimer An external and internal positive and negative controls are appropriate for the histochemical, immunohistochemical and immunofluorescence stain(s) in this case (if any), except where stated explicitly. The performance characteristics of the stain(s) cited in this report were developed and its performance characteristic determined by the Dermatopathology Laboratory at [facility], directed by Dr. Phani Carmona. These tests need not be, and therefore are not, approved by the [place] Food and Drug Administration. The tests are used for clinical purposes. Billing Codes Specimen Charges Stain Charges 98809 1 90947 67042 1 1 3 4:06 PM [facility] DERMATOPATHOLOGY LABORATORY Embedded Images 3 4:06 PM [facility] DERMATOPATHOLOGY LABORATORY Pathology/Cytolo gy TISSUE SPECIMEN FROM SKIN / Unknown 05/19/2023 4:15 PM INDEPENDENT JEWELER 05/20/2023 3:29 PM INDEPENDENT JEWELER Magui Marmolejo MD LAB - PATHOLOGY/CYTOLOGY ORDERA BLES Final Result DERMATOPATHOLOGY LABORATORY [facility] - Department of Dermatology [facility] [address] [place] [address], [address] [phone] documented in this encounter Visit Diagnoses Not on filedocumented in this encounter Care Teams Shank Boner Relationship Specialty Start Date End Date Cindy Hughes MD [address] [place] [address] Endocrinology 11/03/19 Elsie Wright OD [address] [place] [address] Stator Tester 11/03/19 documented as of this encounter
[2025-05-20] MEDS: LACTATED RINGERS 1,000 ML 30 ML IV CONT ×2 (11:30→15:02)
[2025-05-20] MEDS: KETOROLAC 15 MG/ML VIAL (*BKC) IV PUSH (11:30)
[2025-05-20] MEDS: ACETAMINOPHEN 500 MG TABLET 1000 MG PO (11:30)
--- NOTE | 2025-05-20 12:55 | WPDHPUPDATE1 ---
History and Physical Update Update Date/Time: 05/20/25 12:55 History and Physical has been reviewed, including an updated exam of the patient. There are NO changes in the patient's condition. Risks, benefits, and alternatives have been discussed and questions answered. Patient agrees to proceed with procedure.
--- NOTE | 2025-05-20 12:55 | PM.IMHP ---
H&P: HPI History of Present Illness Date/Time: 05/20/25 12:55 Chief Complaint: Biliary dyskinesia Narrative: This is a 54-year-old woman who presents for laparoscopic cholecystectomy. She had prior workup showing a low gallbladder ejection fraction. She reports no changes since last seen in the office. Review of Systems Review of Systems: All systems reviewed & are unremarkable except as noted in HPI and below Constitutional: Constitutional: Denies chills, Denies fever(s), Denies headache(s) and Denies weight loss Eyes: Eyes: Denies change in vision ENT: Denies dizziness, Denies headache(s), Denies neck mass and Denies throat swelling Cardiovascular: Cardiovascular: Denies chest pain, Denies lightheadedness and Denies dyspnea Respiratory: Respiratory: Denies cough, Denies dyspnea and Denies wheezing Gastrointestinal: Gastrointestinal: Denies abdominal pain, Denies change in bowel habits, Denies nausea and Denies vomiting Genitourinary: Genitourinary: Denies hematuria and Denies dysuria Musculoskeletal: Musculoskeletal: Reports as per HPI Integumentary/Breasts: Skin/Breast: Reports as per HPI Neurologic: Denies dizziness and Denies headache(s) Allergic/Immunologic: Allergic/Immunologic: Denies throat swelling and Denies wheezing PMFSH Past Medical History Medical History (Updated 04/18/25 @ 14:14 by Tiffanie Bledsoe) Biliary sludge Paresthesia of hand Obesity Drug therapy Hypertension Joint pain Graves disease Hyperlipidemia Melanoma Overweight Surgical History Surgical History (Updated 04/18/25 @ 13:40 by Venita Gaming MA) Tonsillectomy planned Hx LEEP (loop electrosurgical excision procedure), cervix, Family History Family History (Updated 04/18/25 @ 13:42 by Venita Gaming MA) Mother Dementia Thyroid disease Hypercholesteremia Father Diabetes mellitus Social History Social History (Updated 04/18/25 @ 13:42 by Venita Gaming MA) Smoking status: Never smoker Alcohol intake: current Substance use: never Spiritual care concerns: No Meds Home Medications and Allergies Home Medications ?Medication ?Instructions ?Recorded ?Confirmed ?Type losartan 25 mg tablet 25 mg PO DAILY 04/18/25 05/20/25 History tirzepatide (weight loss) 7.5 7.5 mg subcut WEEKLY 04/18/25 05/20/25 History mg/0.5 mL subcutaneous pen injector (Zepbound) Allergies Allergy/AdvReac Type Severity Reaction Status Date / Time erythromycin base Allergy Unknown Flushing Verified 05/20/25 12:48 Penicillins Allergy Unknown Hives Verified 05/20/25 12:48 Vital Signs Vital Signs - 24 hr 05/20/25 11:05 Temperature 97.3 F L Pulse Rate 63 Respiratory Rate 14 Blood Pressure 125/68 Pulse Oximetry 100 Oxygen Delivery Room Air Exam Const: General: no acute distress and alert Orientation/consciousness: patient oriented x3 HENMT: Head: normocephalic and atraumatic Ears: hearing grossly normal bilaterally Face/Nose/Sinus: Normal nares present Mouth: Yes Normal oral and palatal mucosa present Eyes: Periorbital: periorbital findings normal Sclera: sclerae normal EOM: EOMs intact bilaterally Neck: Neck: normal visual inspection, no lymphadenopathy and trachea midline Chest: Chest palpation & inspection: normal inspection of the chest Resp: Effort & Inspection: normal respiratory effort Auscultation: clear to auscultation bilaterally Cardio: Jugular venous distension: no JVD Rate: regular rate Rhythm: regular rhythm Heart sounds: S1 normal heart sound present and S2 normal heart sound present Peripheral pulses: Peripheral pulses 2+ throughout GI: Inspection: normal to inspection GI Palp: Yes Soft to palpation, No Tenderness to palpation present (GI), No Guarding due to palpation present (GI) and No Rebound tenderness present Percussion: Yes normal to percussion Auscultation: normal bowel sounds : General: Yes no CVA tenderness Back/Spine/Pelvis: Back: no CVA tenderness Neuro: General: patient oriented x3, no focal motor deficits and CN's II-XI intact bilaterally Cognition (Neuro): normal cognition Speech: normal speech Motor exam (neuro): 5/5 motor strength present throughout Extrem: General: capillary refill normal and no clubbing, cyanosis or edema Assessment and Plan Assessment and plan (1) Biliary dyskinesia: Code(s): K82.8 - Other specified diseases of gallbladder Status: Acute Assessment and Plan: I have recommended laparoscopic cholecystectomy, possible open. I have discussed the procedure, risks, benefits, and alternatives with the patient. All questions answered. No changes since last seen in office.
--- NOTE | 2025-05-20 13:08 | WPDANESEPPF ---
Anes - Initial Pre Proc Eval Procedure: Operation Date: 05/20/25 13:00 Proposed Procedures p Laparoscopic Cholecystectomy, Possible Open - Omar Wasserman DO Date/Time: 05/20/25 13:08 Surgeon: Omar Wasserman DO Pre Op Diagnosis: Biliary Dyskinesia Patient Data Age: 54 Gender: F Height: 1.55 m Weight: 60.2 kg Last Vital Signs Temp 36.3 C L 05/20/25 11:05 Pulse 63 05/20/25 11:05 Resp 14 05/20/25 11:05 BP 125/68 05/20/25 11:05 Pulse Ox 100 05/20/25 11:05 O2 Del Method Room Air 05/20/25 11:05 Allergies Allergy/AdvReac Type Severity Reaction Status Date / Time erythromycin base Allergy Unknown Flushing Verified 05/20/25 12:48 Penicillins Allergy Unknown Hives Verified 05/20/25 12:48 Home Medications ?Medication ?Instructions ?Recorded ?Confirmed ?Type losartan 25 mg tablet 25 mg PO DAILY 04/18/25 05/20/25 History tirzepatide (weight loss) 7.5 7.5 mg subcut WEEKLY 04/18/25 05/20/25 History mg/0.5 mL subcutaneous pen injector (Zepbound) Patient hx anesthesia problems: none Family hx anesthesia problems: none Results Review: All pre-operative results and documents have been reviewed as part of the pre-operative evaluation. [facility] Past Medical History Medical History Biliary sludge Paresthesia of hand Obesity Drug therapy Hypertension Joint pain Graves disease Hyperlipidemia Melanoma Overweight Surgical History Surgical History Tonsillectomy planned Hx LEEP (loop electrosurgical excision procedure), cervix, Family History Family History Mother Dementia Thyroid disease Hypercholesteremia Father Diabetes mellitus Social History Social History Smoking status: Never smoker Alcohol intake: current Substance use: never Spiritual care concerns: No Anes - Eval Final PreProcedure Day of Procedure 05/20/25 13:08 Patient weight: normal Heart: regular rate and rhythm Lungs: clear to auscultation Airway: Mallampati scale class II Neurological: alert and oriented Last oral intake: >/= 8 hours ASA classification: III Emergent: no Anesthetic plan: proceed Anesthesia type and monitoring: general ETT and standard monitoring Results Review: All pre-operative results and documents have been reviewed as part of the pre-operative evaluation. Informed Consent: The patient's anesthetic plan and its attendant risks and benefits were discussed with the patient/family/POA. Questions were solicited and answers provided to the satisfaction of the patient/family/POA.
[2025-05-20] MEDS: ceFAZolin 2 GM in SODIUM CHLORIDE 0.9% IV 50 ML 100 ML IVPB (13:18)
[2025-05-20] MEDS: BUPIVACAINE/EPINEPHRINE 0.5% 50 ML VIAL 30 ML INFILTRATE (13:43)
--- NOTE | 2025-05-20 13:57 | S_PTH ---
PATIENT: Damari Doyle LOC: [facility] U#:[id number] AGE/SX: 54/F ROOM: RE05/20/[address]: Omar Wasserman DO : 1970 BED: DIS: 05/20/2025 SPEC #: [id number] RECD: 05/20/25 14:32 STATUS: TOÑO REQ #: [id number] JEANIE: 05/20/25 13:[address]: Omar Wasserman DEPT: [facility] Surgical RECD BY: Lynne Kidd ENTERED: 05/20/25 14:32 SP TYPE: Surgical OTHR DR: Kelsie Krause, PA-C Tissues: A - Gallbladder Procedures: Hematoxylin and Eosin Stain Gross and Microscopic Level 3
--- NOTE | 2025-05-20 14:17 | P.OP_ITS ---
Procedure Note - Detailed Date of Procedure 05/20/25 Pre-op Diagnosis Biliary Dyskinesia Post-op Diagnosis Same Procedure Performed Laparoscopic cholecystectomy Surgeon Omar Wasserman, DO Anesthesia General and Local (0.5% bupivacaine) Indications This is a 54-year-old woman who presented with intermittent upper abdominal pain. Patient has been experiencing right upper quadrant pain for several years but this became worse over the last 2 months. She had a prior gallbladder ultrasound performed which was normal and then she had a HIDA scan which showed a gallbladder ejection fraction of 32%. Discussions were made with the patient about treatment options and decision was made to proceed with laparoscopic cholecystectomy, possible open. Findings Laparoscopic cholecystectomy was performed. The gallbladder appeared slightly distended but was grossly normal. The cystic duct was normal in size. The patient had a few omental adhesions up to the falciform ligament but no other significant abnormalities intra-abdominally. The gallbladder was removed and sent to the lab for pathology. Description of Procedure Procedure as well as risks, benefits, and alternatives were discussed with patient. Written consent was obtained and placed in chart prior to procedure. The patient was brought back to surgical suite. Patient was placed in supine position on operating table. Time-out was done to confirm patient and procedure. Patient was then intubated by the anesthesia department. Abdomen was prepped and draped in sterile fashion using chlorhexidine prep. 0.5% bupivacaine with epinephrine was infiltrated at each site of incision. A 5 millimeter incision was made near the umbilicus, and a 5 millimeter Optiview trocar was advanced through the abdominal layers under direct visualization. O nce inside the abdominal cavity, carbon dioxide was insufflated to create a pneumoperitoneum. The camera was inserted and the abdomen was inspected. No immediate abnormalities were identified. The patient was placed in reverse Trendelenburg position and rotated slightly to the left. An 11 millimeter incision was made in the subxiphoid region, and an 11 millimeter trocar was inserted under direct visualization. Two 5 millimeter incisions were made in the right upper quadrant, and two 5 millimeter trocars were inserted under direct visualization. The gallbladder was identified and grasped at the fundus and retracted superiorly. It was then grasped at the infundibulum retracted laterally. Careful dissection around the neck of the gallbladder was performed using blunt dissection with a [place] grasper and hook electrocautery. The cystic duct was identified, and a window was created behind it. The cystic artery was also identified and a window was created behind it. The critical view of safety was identified, visualizing the cystic duct running directly into the neck of the gallbladder, and the cystic artery running directly into the wall of the gallbladder. A 5 millimeter clip terry cloth cutter hand was then used to place 2 clips proximally and 1 clip distally on both the cystic duct and cystic artery. They were then both transected using endoscopic scissors. Once safely away from the vanesa hepatitis, the gallbladder was dissected free from the liver bed using hook electrocautery. Hemostasis was achieved along the way. The gallbladder was removed completely and then removed through the subxiphoid port. The liver bed was then inspected. Hemostasis appeared adequate, and our clips appeared secure. The area was gently irrigated with sterile saline. No other abnormalities were seen. The patient was flattened out in bed, and 1 final inspection was made around the abdominal cavity. The subxiphoid port was removed, and a Cameron Keke cone was used to approximate the fascia with an 0-Vicryl simple interrupted suture. The remaining ports were then removed under direct visualization, the camera was removed, and the pneumoperitoneum was released. The skin of the incisions was approximated using 4-0 Monocryl subcuticular sutures. Exofin glue was applied on top. The patient was then awakened from anesthesia, extubated, and transferred to recovery. Estimated Blood Loss 5 Pathology Yes (Gallbladder) Complications No immediate complications Condition Stable Disposition Same day [facility] Billing Surgery - Charge Forward: Surgery Billing
== END 2025-05-20 16:31 | disposition home or self-care (01) ==
PROVIDERS: PCP Physician Assistant; Visit Provider Surgery
PROC: 0FT44ZZ Resection of Gallbladder, Percutaneous Endoscopic Approach (ICD-10-PCS; CPT 47562; principal; 2025-05-20 13:00)
DX: K82.8 Other specified diseases of gallbladder (principal)
CPT/HCPCS: 47562; 88304; J0690; A9270; J0330; J1100; J1885; J2003; J2250; J2405; J2704; J3010; J7030; J7120